=== PATIENT | male | born 1950 | race Caucasian/White ===

== ENCOUNTER 2018-08-21 14:56 | Inpatient (IN) | payer MEDICARE ==
[~2018-08-21] VITALS: Ht 171.4 cm; Wt 62.6 kg
[2018-08-21] MEDS ORDERED: INSULIN REGULAR, HUMAN 300 UNIT/3 ML VIAL SQ ONE (15:15)
[2018-08-21] MEDS ORDERED: INSULIN REGULAR, HUMAN 300 UNIT/3 ML VIAL ONE (15:17)
[2018-08-21] MEDS ORDERED: BISA10SU8 RC (15:23)
[2018-08-21] MEDS ORDERED: POLY255P19 PO (15:23)
[2018-08-21] MEDS ORDERED: METO-295 PO (15:23)
[2018-08-21] MEDS ORDERED: AMLO10TA4 PO (15:23)
[2018-08-21] MEDS ORDERED: PANT40TA4 PO (15:23)
[2018-08-21] MEDS ORDERED: NA P133E8 RC (15:23)
[2018-08-21] MEDS ORDERED: LIDOCAINE PATCH (15:23)
[2018-08-21] MEDS ORDERED: ATOR10TA PO (15:23)
[2018-08-21] MEDS ORDERED: INSU3INS6 SQ (15:23)
[2018-08-21] MEDS ORDERED: ONDA4TAB10 PO (15:23)
[2018-08-21] MEDS ORDERED: NOVOLOG SQ (15:23)
[2018-08-21] MEDS ORDERED: ACET-2154 PO (15:23)
[2018-08-21] MEDS ORDERED: MAGN400O6 PO (15:23)
[2018-08-21] MEDS ORDERED: MIRT15TA7 PO (15:23)
[2018-08-21] MEDS ORDERED: TAMS-3 PO (15:23)
[2018-08-21] MEDS ORDERED: BLOOD SUGAR CHECK (15:23)
--- NOTE | 2018-08-21 16:00 | NUR ---
RECEIVED A 67 Y/O MALE PT , CAME VIA AMBULANCE FROM [facility], C/O HIGH BLOOD SUGAR, PT UPON ARRIVAL BS CHECKED 457 RECEIVED 10 UNITS HR SC. BLOOD WORK DONE IV INSERTED, PT HOOKED TO NS IV. BS RECHECKED STILL HIGH , AWARE, ORDERED TO ADMIT PT , TO BE UNDER THE CARE OF DR PIERO TAVARES.
[2018-08-21] MEDS ORDERED: IV NORMAL SALINE 1000 ML BAG IV ONE (16:30)
[2018-08-21 16:52] LABS: *BILIRUBIN,URIN NEGATIVE (NEGATIVE); *CLARITY,URINE CLEAR (CLEAR); *COLOR,URINE YELLOW (YELLOW); *KETONES,URINE NEGATIVE (NEGATIVE); *UROBILINOGEN,URINE 0.2 E.U./dl (NORMAL); LEUKOCYTE ESTERASE ,URINE NEGATIVE (NEGATIVE); NITRITE, URINE NEGATIVE (NEGATIVE); UGLUCOSE 2+ (NEGATIVE)
[2018-08-21 16:56] LABS: *BLOOD, URINE TRACE (NEGATIVE)
[2018-08-21 16:57] LABS: MUCUS,URINE FEW /LPF (0-FEW); RBC,URINE NONE SEEN /HPF (0-3); WBC,URINE NONE SEEN /HPF (0-3)
[2018-08-21 17:04] LABS: POTASSIUM 4.9 mmol/L (3.5-5.1)
[2018-08-21 17:05] LABS: BASOPHILS # (AUTO) 0.1 K/uL (0.0-8.0); BASOPHILS % (AUTO) 0.7 % (0.0-2.0); EOSINOPHILS # (AUTO) 0.2 K/uL (0.0-0.7); EOSINOPHILS % (AUTO) 2.7 % (0.0-7.0); HEMATOCRIT 31.5 % (36.7-47.1); HEMOGLOBIN 10.5 g/dL (12.5-16.3); LYMPHOCYTES # (AUTO) 1.4 K/uL (20.0-40.0); LYMPHOCYTES % (AUTO) 16.7 % (20.5-51.5); MEAN CORPUSCULAR HEMOGLOBIN 31.4 uug (23.8-33.4); MEAN CORPUSCULAR HGB CONC 33 g/dL (32.5-36.3); MEAN CORPUSCULAR VOLUME 94.1 fL (73.0-96.2); MONOCYTES # (AUTO) 1.1 K/uL (2.0-10.0); NEUTROPHILS # (AUTO) 5.6 K/uL (1.8-8.9); NEUTROPHILS % (AUTO) 66.9 % (38.5-71.5); PLATELET COUNT (AUTO) 163 K/uL (152-348); RED BLOOD CELL COUNT(AUTO) 3.35 MIL/uL (4.06-5.63); WHITE BLOOD COUNT (AUTO) 8.3 K/uL (3.6-10.2)
[2018-08-21 17:09] LABS: BILIRUBIN,DIRECT 0.2 mg/dL (0.0-0.2); BILIRUBIN,TOTAL 0.6 mg/dL (0.2-1.0); TOTAL PROTEIN, SERUM 7.8 g/dL (6.4-8.2)
--- NOTE | 2018-08-21 17:32 | NUR ---
FULL REPORT GIVEN TO SUJEY, PATIENT TRANSFERRED TO 3RD FLOOR TELE UNIT IN WHEEL CHAIR.
[2018-08-21 17:44] VITALS: BP 151/64
--- NOTE | 2018-08-21 17:45 | NUR ---
Received this 67 yo male from ER per wheelchair with the chief complaint of elevated blood sugar, diagnosis of Hyperglycemia, uncontrolled diabetes. Transferred to bed comfortably. Routine admission care rendered. Vital signa taken and recorded. Placed on tele SR. Awake, alert, oriented x 4, able to move all extremities on purpose. Saline lock LFA. Blood glucose checked 267. Dr. Nunez informed of admission.
[2018-08-21] MEDS ORDERED: ACETAMINOPHEN 325 MG TABLET PO PRN (18:30)
[2018-08-21] MEDS ORDERED: MORPHINE SULFATE 2 MG/1 ML DISP.SYRIN IV PRN (18:45)
[2018-08-21] MEDS ORDERED: ONDANSETRON 4 MG/2 ML VIAL IV PRN (18:45)
--- NOTE | 2018-08-21 19:30 | NUR ---
Received patient laying in bed. No acute distress noted. A/O x 4. Denies pain or SOB. In room air. IV on the left hand, patent and intact. Reinforced with tegaderm. Skin appears intact. Safety initiated. Call light within reach. Bed alarm on. Will closely monitor.
[2018-08-21] MEDS: ATORVASTATIN 10 MG TABLET PO SCH (20:46)
[2018-08-21] MEDS: MIRTAZAPINE 15 MG TABLET PO SCH (20:46)
[2018-08-21] MEDS: TAMSULOSIN HCL 0.4 MG CAP.SR.24H PO SCH (20:46)
[2018-08-21 20:49] VITALS: BP 113/47
[2018-08-21] MEDS: BLOOD SUGAR DIAGNOSTIC 1 EACH STRIP VI SCH (20:51)
[2018-08-21] MEDS: INSULIN GLARGINE,HUM 300 UNITS/3 ML CARTRIDGE SQ SCH (20:52)
[2018-08-21] MEDS: INSULIN REGULAR, HUMAN 300 UNIT/3 ML VIAL SQ PRN (20:53)
[2018-08-21] MEDS: IV 1/2NS 1000 ML 1,000 ML IV PRN (21:01)
[2018-08-22 04:50] VITALS: BP 129/64
--- NOTE | 2018-08-22 05:45 | NUR ---
Patient slept t/o shift. No acute distress noted. Patient denies pain or SOB. Remains in room air. TELE SBrady at 52. IVF infusing on the left hand. Good Urine output. Vital signs stable. All meds given as ordered. All needs met. All safety and comfort measures maintained t/o shift.
[2018-08-22] MEDS: PANTOPRAZOLE SODIUM 40 MG TABLET.DR PO SCH (06:23)
[2018-08-22] MEDS: BLOOD SUGAR DIAGNOSTIC 1 EACH STRIP VI SCH ×4 (06:30→20:40)
[2018-08-22 06:40] LABS: BASOPHILS % (AUTO) 0.8 % (0.0-2.0); EOSINOPHILS # (AUTO) 0.4 K/uL (0.0-0.7); EOSINOPHILS % (AUTO) 5.6 % (0.0-7.0); HEMATOCRIT 29.6 % (36.7-47.1); HEMOGLOBIN 9.9 g/dL (12.5-16.3); LYMPHOCYTES # (AUTO) 1.4 K/uL (20.0-40.0); LYMPHOCYTES % (AUTO) 22.4 % (20.5-51.5); MEAN CORPUSCULAR HEMOGLOBIN 31.3 uug (23.8-33.4); MEAN CORPUSCULAR HGB CONC 34 g/dL (32.5-36.3); MEAN CORPUSCULAR VOLUME 93.4 fL (73.0-96.2); MONOCYTES # (AUTO) 0.9 K/uL (2.0-10.0); MONOCYTES % (AUTO) 14.3 % (0.0-11.0); NEUTROPHILS # (AUTO) 3.6 K/uL (1.8-8.9); NEUTROPHILS % (AUTO) 56.9 % (38.5-71.5); PLATELET COUNT (AUTO) 157 K/uL (152-348); RED BLOOD CELL COUNT(AUTO) 3.17 MIL/uL (4.06-5.63); WHITE BLOOD COUNT (AUTO) 6.3 K/uL (3.6-10.2)
[2018-08-22 07:08] LABS: BILIRUBIN,TOTAL 0.5 mg/dL (0.2-1.0); CREATININE 1.7 mg/dL (0.6-1.3); MAGNESIUM 1.8 mg/dL (1.8-2.4); PHOSPHOROUS 5.1 mg/dL (2.5-4.9); POTASSIUM 4.3 mmol/L (3.5-5.1); TOTAL PROTEIN, SERUM 6.6 g/dL (6.4-8.2)
[2018-08-22 07:10] LABS: THYROID STIMULATING HORMONE 2.388 mIU/mL (0.358-3.740)
[2018-08-22] MEDS: AMLODIPINE 10 MG TABLET PO SCH (08:08)
[2018-08-22] MEDS: METOCLOPRAMIDE HCL 10 MG TABLET PO SCH ×3 (08:08→17:19)
[2018-08-22] MEDS: INSULIN GLARGINE,HUM 300 UNITS/3 ML CARTRIDGE SQ SCH ×2 (08:10→20:51)
[2018-08-22] MEDS: INSULIN REGULAR, HUMAN 300 UNIT/3 ML VIAL SQ PRN ×4 (08:12→20:50)
[2018-08-22] MEDS ORDERED: BISACODYL 10 MG SUPP.RECT RC PRN (09:00)
[2018-08-22] MEDS ORDERED: POLYETHYLENE GLYCOL 3350 238 GM POWDER PO SCH (09:00)
[2018-08-22] MEDS: IV 1/2NS 1000 ML 1,000 ML IV PRN (10:16)
[2018-08-22 11:34] VITALS: BP 141/68
[2018-08-22 16:00] VITALS: BP 121/58
--- NOTE | 2018-08-22 16:22 | NUR ---
Patient is AO4, No acute distress noted. Patient denies pain or SOB. Remains in room air. TELE SR and SBrady 58. IVF infusing 1/2 NS at 70ml/hr. Good Urine output. Vital signs stable. All needs met. All safety and comfort measures maintained t/o shift.
--- NOTE | 2018-08-22 19:30 | NUR ---
PATIENT RECEIVED LYING IN BED. A/OX4. NO SIGNS OF ACUTE DISTRESS. COMFORT MEASURES PROVIDED. BED IN LOWEST POSITION. SIDE RAILS UP X2.
[2018-08-22 20:40] VITALS: BP 130/57
[2018-08-22] MEDS: TAMSULOSIN HCL 0.4 MG CAP.SR.24H PO SCH (20:41)
[2018-08-22] MEDS: ATORVASTATIN 10 MG TABLET PO SCH (20:41)
[2018-08-22] MEDS: MIRTAZAPINE 15 MG TABLET PO SCH (20:41)
[2018-08-23 00:42] VITALS: BP 130/52
[2018-08-23] MEDS: IV 1/2NS 1000 ML 1,000 ML IV PRN (01:29)
[2018-08-23 04:00] VITALS: BP 125/52
[2018-08-23] MEDS: PANTOPRAZOLE SODIUM 40 MG TABLET.DR PO SCH (06:31)
[2018-08-23] MEDS: BLOOD SUGAR DIAGNOSTIC 1 EACH STRIP VI SCH ×3 (06:35→11:50)
[2018-08-23] MEDS: DEXTROSE 50% 50 ML DISP.SYRIN IV PRN ×3 (07:00→07:23)
--- NOTE | 2018-08-23 07:27 | NUR ---
PATIENT INTERMITTENTLY SLEEPING. A/O X4. NO SIGNS OF ACUTE DISTRESS. COMFORT MEASURES PROVIDED. SIDE RAILS UP X2. BED IN LOWEST POSITION. ALARM ON. PATIENT BLOOD SUGAR AT 61. PROTOCAL INITIATED PATIENT GIVEN SANDWHICH AND ORANGE JUICE. RECHECKED BLOOD SUGAR IN 15 MINUTES AND BS WAS 63. PATIENT REFUSED MEAL AND DEXTROSE 50ML WAS ADMINISTERED. RECHECKED BS IN 15 MINUTES BS WAS 215. ENDORSED TO AM SHIFT TO CONTACT
[2018-08-23] MEDS: METOCLOPRAMIDE HCL 10 MG TABLET PO SCH ×2 (08:18→12:24)
[2018-08-23] MEDS: AMLODIPINE 10 MG TABLET PO SCH (08:19)
[2018-08-23] MEDS ORDERED: INSULIN GLARGINE,HUM 300 UNITS/3 ML CARTRIDGE SQ SCH ×2 (09:00→21:00)
[2018-08-23] MEDS: INSULIN REGULAR, HUMAN 300 UNIT/3 ML VIAL SQ PRN ×2 (09:32→12:21)
[2018-08-23 09:40] LABS: HEMATOCRIT 30.3 % (36.7-47.1); HEMOGLOBIN 10.2 g/dL (12.5-16.3); MEAN CORPUSCULAR HEMOGLOBIN 31.3 uug (23.8-33.4); MEAN CORPUSCULAR HGB CONC 34 g/dL (32.5-36.3); MEAN CORPUSCULAR VOLUME 92.9 fL (73.0-96.2); NEUTROPHILS % (AUTO) 61.6 % (38.5-71.5); PLATELET COUNT (AUTO) 158 K/uL (152-348); RED BLOOD CELL COUNT(AUTO) 3.26 MIL/uL (4.06-5.63); WHITE BLOOD COUNT (AUTO) 6.5 K/uL (3.6-10.2)
[2018-08-23 09:41] LABS: BASOPHILS # (AUTO) 0.1 K/uL (0.0-8.0); EOSINOPHILS # (AUTO) 0.3 K/uL (0.0-0.7); EOSINOPHILS % (AUTO) 4.5 % (0.0-7.0); LYMPHOCYTES # (AUTO) 1.3 K/uL (20.0-40.0); LYMPHOCYTES % (AUTO) 20.6 % (20.5-51.5); MONOCYTES # (AUTO) 0.8 K/uL (2.0-10.0); MONOCYTES % (AUTO) 12.3 % (0.0-11.0)
[2018-08-23 09:54] LABS: BILIRUBIN,TOTAL 0.5 mg/dL (0.2-1.0); CREATININE 1.8 mg/dL (0.6-1.3); MAGNESIUM 1.7 mg/dL (1.8-2.4); PHOSPHOROUS 4.3 mg/dL (2.5-4.9); POTASSIUM 4.5 mmol/L (3.5-5.1); TOTAL PROTEIN, SERUM 6.7 g/dL (6.4-8.2)
[2018-08-23 11:56] VITALS: BP 136/55
[2018-08-23] MEDS ORDERED: Insulin Glargine,Hum SQ ×2 (13:56)
[2018-08-23] MEDS ORDERED: TAMS-3 PO (13:56)
[2018-08-23] MEDS ORDERED: INSU3INS6 SQ ×2 (14:02)
--- NOTE | 2018-08-23 16:00 | NUR ---
PATIENT IS AO4, NO DISTRESS THIS SHIFT . NO SOB OR PAIN. BS IN THE MORNING WAS LOW AND MD IS AWARE OF IT (TEXTED IN THE AM) DISCHARGE INSTRUCTIONS PROVIDED WITH PRESCRIPTION TO THE PATIENT AND HARD COPY OF D/C PAPERS SIGNED AND GIVEN TO THE PATIENT PATIENT WENT DOWN STAIR BY WHEELCHAIR AND BROTHER
[2018-08-24] MEDS ORDERED: INSULIN GLARGINE,HUM 300 UNITS/3 ML CARTRIDGE SQ SCH (09:00)
== END 2018-08-23 15:55 | disposition home health service (06) | DRG 637 ==
LOC: ER 14:58 → TELE3 16:51
PROVIDERS: ADMIT Internal Medicine; ATTEND Internal Medicine
DX: E11.65 Type 2 diabetes mellitus with hyperglycemia (principal); E11.10 Type 2 diabetes mellitus with ketoacidosis without coma; N17.0 Acute kidney failure with tubular necrosis; G93.41 Metabolic encephalopathy; D68.59 Other primary thrombophilia; Z79.4 Long term (current) use of insulin; E11.22 Type 2 diabetes mellitus with diabetic chronic kidney disease; I12.9 Hypertensive chronic kidney disease with stage 1 through stage 4 chronic kidney disease, or unspecified chronic kidney disease; Z66 Do not resuscitate; N18.3 Chronic kidney disease, stage 3 (moderate); N40.0 Benign prostatic hyperplasia without lower urinary tract symptoms; Z79.899 Other long term (current) drug therapy; K21.9 Gastro-esophageal reflux disease without esophagitis; Z91.81 History of falling; E78.5 Hyperlipidemia, unspecified; Z87.820 Personal history of traumatic brain injury
CPT/HCPCS: 36415; 70030-TC; 71045; 83550; 83690; 83735; 84100; 84443; 85025; 85730; 87086; 93005; 97116; 97530; A4663; G0378; J1815; J3490; J8597

== ENCOUNTER 2018-11-12 12:58 | Inpatient (IN) | payer MEDICARE ==
[~2018-11-12] VITALS: Ht 172.7 cm; Wt 65.8 kg
[~2018-11-12 12:58] MED LIST: ACET-2154 PO; AMLO10TA4 PO; ATOR10TA PO; BISA10SU95 RC; BLOOD SUGAR CHECK; INSU3INS6 SQ; LIDOCAINE PATCH; METO-295 PO; MIRT15TA7 PO; NA P133E8 RC; NOVOLOG SQ; PANT40TA4 PO; POLY255P19 PO; TAMS-3 PO
[2018-11-12] MEDS ORDERED: GLUC1KIT SQ (13:27)
[2018-11-12] MEDS ORDERED: INSU200I SQ ×3 (13:27)
[2018-11-12] MEDS ORDERED: INSU3INS6 SQ (13:27)
[2018-11-12 13:34] LABS: BASOPHILS # (AUTO) 0.1 K/uL (0.0-8.0); BASOPHILS % (AUTO) 1.2 % (0.0-2.0); EOSINOPHILS # (AUTO) 0.4 K/uL (0.0-0.7); EOSINOPHILS % (AUTO) 4.7 % (0.0-7.0); HEMATOCRIT 35.5 % (36.7-47.1); HEMOGLOBIN 11.6 g/dL (12.5-16.3); LYMPHOCYTES # (AUTO) 1.4 K/uL (20.0-40.0); LYMPHOCYTES % (AUTO) 15.9 % (20.5-51.5); MEAN CORPUSCULAR HEMOGLOBIN 29.9 uug (23.8-33.4); MEAN CORPUSCULAR HGB CONC 33 g/dL (32.5-36.3); MEAN CORPUSCULAR VOLUME 91.4 fL (73.0-96.2); MONOCYTES # (AUTO) 0.7 K/uL (2.0-10.0); MONOCYTES % (AUTO) 8.3 % (0.0-11.0); NEUTROPHILS % (AUTO) 69.9 % (38.5-71.5); PLATELET COUNT (AUTO) 197 K/uL (152-348); RED BLOOD CELL COUNT(AUTO) 3.88 MIL/uL (4.06-5.63); WHITE BLOOD COUNT (AUTO) 8.6 K/uL (3.6-10.2)
[2018-11-12 13:43] LABS: BILIRUBIN,DIRECT 0.2 mg/dL (0.0-0.2); BILIRUBIN,TOTAL 0.7 mg/dL (0.2-1.0); CREATININE 2.3 mg/dL (0.6-1.3); POTASSIUM 4.8 mmol/L (3.5-5.1); TOTAL PROTEIN, SERUM 7.9 g/dL (6.4-8.2)
[2018-11-12] MEDS ORDERED: INSULIN REGULAR, HUMAN 300 UNIT/3 ML VIAL SQ ONE (14:00)
[2018-11-12] MEDS ORDERED: IV NORMAL SALINE 500 ML BAG IV ONE (14:00)
[2018-11-12 14:20] LABS: *BILIRUBIN,URIN NEGATIVE (NEGATIVE); *CLARITY,URINE CLEAR (CLEAR); *COLOR,URINE YELLOW (YELLOW); *KETONES,URINE NEGATIVE (NEGATIVE); *UROBILINOGEN,URINE 0.2 E.U./dl (NORMAL); LEUKOCYTE ESTERASE ,URINE NEGATIVE (NEGATIVE); NITRITE, URINE NEGATIVE (NEGATIVE); PH,URINE 5.5 (5.0-8.0)
[2018-11-12 14:22] LABS: *BLOOD, URINE TRACE (NEGATIVE); UGLUCOSE 2+ (NEGATIVE)
[2018-11-12 14:25] LABS: WBC,URINE 0-3 /HPF (0-3)
[2018-11-12 14:26] LABS: BACTERIA,URINE NONE SEEN /HPF (NONE SEEN); MUCUS,URINE FEW /LPF (0-FEW); SQUAMOUS EPITHELIAL CELL,UR FEW /HPF (NONE SEEN)
[2018-11-12] MEDS ORDERED: INSULIN REGULAR, HUMAN 300 UNIT/3 ML VIAL ONE (14:27)
[2018-11-12] MEDS ORDERED: DEXTROSE 50% 50 ML DISP.SYRIN IV PRN (15:45)
[2018-11-12] MEDS ORDERED: ONDANSETRON 4 MG/2 ML VIAL IV PRN (15:45)
[2018-11-12] MEDS ORDERED: TEMAZEPAM 15 MG CAPSULE PO PRN (15:45)
[2018-11-12] MEDS ORDERED: BISACODYL 10 MG SUPP.RECT RC SCH (15:45)
[2018-11-12] MEDS ORDERED: HYDROCODONE/APAP 10-325 MG TABLET PO PRN (15:45)
[2018-11-12] MEDS ORDERED: FLEET ENEMA 133 ML BOTTLE RC SCH (15:45)
[2018-11-12] MEDS ORDERED: Z GUARD REMEDY PASTE 57 GM TUBE TOP PRN (15:45)
[2018-11-12] MEDS ORDERED: ACETAMINOPHEN 325 MG TABLET PO PRN (15:45)
[2018-11-12] MEDS ORDERED: HYDROCODONE/APAP 5-325MG TABLET PO PRN (15:45)
[2018-11-12] MEDS ORDERED: METOCLOPRAMIDE HCL 5 MG TABLET PO PRN (16:30)
[2018-11-12] MEDS: BLOOD SUGAR DIAGNOSTIC 1 EACH STRIP VI SCH ×2 (16:30→21:01)
[2018-11-12] MEDS ORDERED: METOCLOPRAMIDE HCL 10 MG TABLET PO SCH (17:00)
[2018-11-12 17:37] VITALS: BP 153/58
[2018-11-12] MEDS: PANTOPRAZOLE SODIUM 40 MG TABLET.DR PO SCH (17:53)
[2018-11-12] MEDS: ATORVASTATIN 10 MG TABLET PO SCH (17:53)
[2018-11-12] MEDS: MIRTAZAPINE 15 MG TABLET PO SCH (17:57)
[2018-11-12] MEDS: INSULIN LISPRO 300 UNIT/3 ML VIAL SQ SCH (17:59)
[2018-11-12] MEDS: IV NS 1000 ML 1,000 ML IV PRN (18:04)
[2018-11-12 19:42] VITALS: BP 158/66
[2018-11-12] MEDS: TAMSULOSIN HCL 0.4 MG CAP.SR.24H PO SCH (21:03)
[2018-11-12] MEDS: INSULIN GLARGINE,HUM 300 UNITS/3 ML CARTRIDGE SQ SCH (21:06)
[2018-11-12] MEDS: INSULIN REGULAR, HUMAN 300 UNIT/3 ML VIAL SQ PRN (21:07)
[2018-11-13 01:23] LABS: *BILIRUBIN,URIN NEGATIVE (NEGATIVE); *BLOOD, URINE NEGATIVE (NEGATIVE); *CLARITY,URINE CLEAR (CLEAR); *COLOR,URINE YELLOW (YELLOW); *KETONES,URINE NEGATIVE (NEGATIVE); *UROBILINOGEN,URINE 0.2 E.U./dl (NORMAL); LEUKOCYTE ESTERASE ,URINE NEGATIVE (NEGATIVE); NITRITE, URINE NEGATIVE (NEGATIVE); UGLUCOSE TRACE (NEGATIVE)
[2018-11-13 01:33] LABS: *CREATININE,URINE 27.4 mg/dL (30-125); *URINE TOTAL PROTEIN RANDOM 63.8 mg/dL (<150/24HR)
[2018-11-13 01:36] LABS: BACTERIA,URINE NONE SEEN /HPF (NONE SEEN); RBC,URINE NONE SEEN /HPF (0-3); SQUAMOUS EPITHELIAL CELL,UR FEW /HPF (NONE SEEN); WBC,URINE 0-3 /HPF (0-3)
[2018-11-13] MEDS: IV NS 1000 ML 1,000 ML IV PRN ×2 (04:08→14:57)
[2018-11-13 04:28] VITALS: BP 129/55
[2018-11-13] MEDS: BLOOD SUGAR DIAGNOSTIC 1 EACH STRIP VI SCH ×4 (06:28→20:35)
[2018-11-13 07:02] LABS: BASOPHILS # (AUTO) 0.1 K/uL (0.0-8.0); EOSINOPHILS # (AUTO) 0.5 K/uL (0.0-0.7); EOSINOPHILS % (AUTO) 8.2 % (0.0-7.0); HEMATOCRIT 32.2 % (36.7-47.1); HEMOGLOBIN 10.9 g/dL (12.5-16.3); LYMPHOCYTES # (AUTO) 1.5 K/uL (20.0-40.0); LYMPHOCYTES % (AUTO) 25.2 % (20.5-51.5); MEAN CORPUSCULAR HEMOGLOBIN 30.6 uug (23.8-33.4); MEAN CORPUSCULAR HGB CONC 34 g/dL (32.5-36.3); MEAN CORPUSCULAR VOLUME 90.6 fL (73.0-96.2); MONOCYTES # (AUTO) 0.7 K/uL (2.0-10.0); MONOCYTES % (AUTO) 12.6 % (0.0-11.0); NEUTROPHILS # (AUTO) 3.1 K/uL (1.8-8.9); PLATELET COUNT (AUTO) 179 K/uL (152-348); RED BLOOD CELL COUNT(AUTO) 3.56 MIL/uL (4.06-5.63); WHITE BLOOD COUNT (AUTO) 5.8 K/uL (3.6-10.2)
[2018-11-13 07:16] LABS: CREATININE 1.7 mg/dL (0.6-1.3); MAGNESIUM 1.8 mg/dL (1.8-2.4); PHOSPHOROUS 4.5 mg/dL (2.5-4.9); POTASSIUM 4.1 mmol/L (3.5-5.1)
[2018-11-13] MEDS: ATORVASTATIN 10 MG TABLET PO SCH (08:55)
[2018-11-13] MEDS: PANTOPRAZOLE SODIUM 40 MG TABLET.DR PO SCH (08:55)
[2018-11-13] MEDS: AMLODIPINE 10 MG TABLET PO SCH (08:56)
[2018-11-13] MEDS: INSULIN LISPRO 300 UNIT/3 ML VIAL SQ SCH ×2 (09:00→18:42)
[2018-11-13 11:18] VITALS: BP 129/73
[2018-11-13] MEDS: INSULIN REGULAR, HUMAN 300 UNIT/3 ML VIAL SQ PRN (12:38)
[2018-11-13 15:13] VITALS: BP 147/68
[2018-11-13] MEDS: MIRTAZAPINE 15 MG TABLET PO SCH (18:41)
[2018-11-13 20:32] VITALS: BP 139/62
[2018-11-13] MEDS: TAMSULOSIN HCL 0.4 MG CAP.SR.24H PO SCH (20:37)
[2018-11-13] MEDS: INSULIN GLARGINE,HUM 300 UNITS/3 ML CARTRIDGE SQ SCH (20:38)
[2018-11-14] MEDS: IV NS 1000 ML 1,000 ML IV PRN (01:09)
[2018-11-14 04:41] VITALS: BP 125/62
[2018-11-14] MEDS: BLOOD SUGAR DIAGNOSTIC 1 EACH STRIP VI SCH ×4 (05:48→21:07)
[2018-11-14 06:54] LABS: BASOPHILS # (AUTO) 0.1 K/uL (0.0-8.0); BASOPHILS % (AUTO) 0.8 % (0.0-2.0); EOSINOPHILS # (AUTO) 0.3 K/uL (0.0-0.7); EOSINOPHILS % (AUTO) 5.1 % (0.0-7.0); HEMATOCRIT 32.2 % (36.7-47.1); HEMOGLOBIN 10.8 g/dL (12.5-16.3); LYMPHOCYTES # (AUTO) 1.1 K/uL (20.0-40.0); LYMPHOCYTES % (AUTO) 16.8 % (20.5-51.5); MEAN CORPUSCULAR HEMOGLOBIN 30.4 uug (23.8-33.4); MEAN CORPUSCULAR HGB CONC 34 g/dL (32.5-36.3); MEAN CORPUSCULAR VOLUME 90.9 fL (73.0-96.2); MONOCYTES # (AUTO) 0.7 K/uL (2.0-10.0); MONOCYTES % (AUTO) 9.9 % (0.0-11.0); NEUTROPHILS # (AUTO) 4.5 K/uL (1.8-8.9); NEUTROPHILS % (AUTO) 67.4 % (38.5-71.5); PLATELET COUNT (AUTO) 171 K/uL (152-348); RED BLOOD CELL COUNT(AUTO) 3.55 MIL/uL (4.06-5.63); WHITE BLOOD COUNT (AUTO) 6.8 K/uL (3.6-10.2)
[2018-11-14 07:11] LABS: BILIRUBIN,TOTAL 0.5 mg/dL (0.2-1.0); CREATININE 1.8 mg/dL (0.6-1.3); MAGNESIUM 1.8 mg/dL (1.8-2.4); PHOSPHOROUS 4.2 mg/dL (2.5-4.9); POTASSIUM 4.5 mmol/L (3.5-5.1); TOTAL PROTEIN, SERUM 7.1 g/dL (6.4-8.2)
[2018-11-14] MEDS: PANTOPRAZOLE SODIUM 40 MG TABLET.DR PO SCH (09:35)
[2018-11-14] MEDS: AMLODIPINE 10 MG TABLET PO SCH (09:35)
[2018-11-14] MEDS: ATORVASTATIN 10 MG TABLET PO SCH (09:35)
[2018-11-14] MEDS: INSULIN LISPRO 300 UNIT/3 ML VIAL SQ SCH ×2 (09:40→17:52)
[2018-11-14] MEDS: INSULIN REGULAR, HUMAN 300 UNIT/3 ML VIAL SQ PRN ×3 (09:48→21:10)
[2018-11-14 11:24] VITALS: BP 132/84
[2018-11-14 15:09] VITALS: BP 144/65
[2018-11-14] MEDS: MIRTAZAPINE 15 MG TABLET PO SCH (17:50)
[2018-11-14 20:02] VITALS: BP 128/53
[2018-11-14] MEDS: TAMSULOSIN HCL 0.4 MG CAP.SR.24H PO SCH (21:02)
[2018-11-14] MEDS: INSULIN GLARGINE,HUM 300 UNITS/3 ML CARTRIDGE SQ SCH (21:09)
[2018-11-15 05:52] LABS: BASOPHILS # (AUTO) 0.1 K/uL (0.0-8.0); BASOPHILS % (AUTO) 1.2 % (0.0-2.0); EOSINOPHILS # (AUTO) 0.4 K/uL (0.0-0.7); EOSINOPHILS % (AUTO) 5.5 % (0.0-7.0); HEMATOCRIT 30.6 % (36.7-47.1); HEMOGLOBIN 10.5 g/dL (12.5-16.3); LYMPHOCYTES # (AUTO) 1.5 K/uL (20.0-40.0); LYMPHOCYTES % (AUTO) 23.8 % (20.5-51.5); MEAN CORPUSCULAR HEMOGLOBIN 30.9 uug (23.8-33.4); MEAN CORPUSCULAR HGB CONC 34 g/dL (32.5-36.3); MEAN CORPUSCULAR VOLUME 90.4 fL (73.0-96.2); MONOCYTES # (AUTO) 0.7 K/uL (2.0-10.0); MONOCYTES % (AUTO) 10.4 % (0.0-11.0); NEUTROPHILS # (AUTO) 3.8 K/uL (1.8-8.9); NEUTROPHILS % (AUTO) 59.1 % (38.5-71.5); PLATELET COUNT (AUTO) 170 K/uL (152-348); RED BLOOD CELL COUNT(AUTO) 3.39 MIL/uL (4.06-5.63); WHITE BLOOD COUNT (AUTO) 6.4 K/uL (3.6-10.2)
[2018-11-15] MEDS: BLOOD SUGAR DIAGNOSTIC 1 EACH STRIP VI SCH ×2 (05:58→11:33)
[2018-11-15 06:00] LABS: BILIRUBIN,TOTAL 0.5 mg/dL (0.2-1.0); CREATININE 1.9 mg/dL (0.6-1.3); MAGNESIUM 1.7 mg/dL (1.8-2.4); PHOSPHOROUS 4.1 mg/dL (2.5-4.9); POTASSIUM 4.1 mmol/L (3.5-5.1); TOTAL PROTEIN, SERUM 6.5 g/dL (6.4-8.2)
[2018-11-15 06:30] VITALS: BP 125/65
[2018-11-15] MEDS: AMLODIPINE 10 MG TABLET PO SCH (08:21)
[2018-11-15] MEDS: ATORVASTATIN 10 MG TABLET PO SCH (08:21)
[2018-11-15] MEDS: PANTOPRAZOLE SODIUM 40 MG TABLET.DR PO SCH (08:21)
[2018-11-15] MEDS: INSULIN REGULAR, HUMAN 300 UNIT/3 ML VIAL SQ PRN ×2 (08:25→12:06)
[2018-11-15] MEDS: INSULIN LISPRO 300 UNIT/3 ML VIAL SQ SCH (09:21)
[2018-11-15 11:50] VITALS: BP 136/53
[2018-11-15] MEDS ORDERED: MAGNESIUM OXIDE 400 MG TABLET PO ONE (14:00)
[2018-11-16 06:09] LABS: A/G RATIO 1.5 (0.7-1.7); ALBUMIN 3.8 g/dL (2.9-4.4); ALPHA-1-GLOBULIN 0.1 g/dL (0.0-0.4); ALPHA-2-GLOBULIN 0.4 g/dL (0.4-1.0); BETA GLOBULIN 0.7 g/dL (0.7-1.3); GAMMA GLOBULIN 1.3 g/dL (0.4-1.8); GLOBULIN, TOTAL 2.5 g/dL (2.2-3.9); M-SPIKE Not Observed g/dL (Not Observed)
== END 2018-11-15 13:20 | DRG 637 ==
LOC: ER 12:58 → MEDSURG3 15:36
PROVIDERS: ADMIT Nurse Practitioner Acute Care; ATTEND Nurse Practitioner Acute Care
DX: E11.65 Type 2 diabetes mellitus with hyperglycemia (principal); N17.0 Acute kidney failure with tubular necrosis; G93.41 Metabolic encephalopathy; E87.1 Hypo-osmolality and hyponatremia; E87.2 Acidosis; E11.22 Type 2 diabetes mellitus with diabetic chronic kidney disease; I12.9 Hypertensive chronic kidney disease with stage 1 through stage 4 chronic kidney disease, or unspecified chronic kidney disease; N18.9 Chronic kidney disease, unspecified; Z79.4 Long term (current) use of insulin; N40.0 Benign prostatic hyperplasia without lower urinary tract symptoms; E78.5 Hyperlipidemia, unspecified; E86.1 Hypovolemia; H47.011 Ischemic optic neuropathy, right eye; E11.39 Type 2 diabetes mellitus with other diabetic ophthalmic complication; D63.8 Anemia in other chronic diseases classified elsewhere; M21.372 Foot drop, left foot; F32.9 Major depressive disorder, single episode, unspecified; K21.9 Gastro-esophageal reflux disease without esophagitis; Z79.899 Other long term (current) drug therapy
CPT/HCPCS: 36415; 70030-TC; 71045; 83605; 83735; 83970; 84100; 84155; 84156; 84165; 84300; 85025; 93005; 97116; 97530; A4663; G0378; J1815; J7030

== ENCOUNTER 2019-01-17 00:37 | Emergency (ER) | payer MEDICARE ==
[~2019-01-17] VITALS: Ht 172.7 cm; Wt 68.0 kg
[~2019-01-17 00:37] MED LIST changes: +GLUC1KIT SQ; -INSU3INS6 SQ
--- NOTE | 2019-01-17 00:59 | NUR ---
pt. admitted to [facility] ambulance from [facility] c/o fall. c/o r elbow pain. dr mclaughlin came & evaluated pt.
[2019-01-17] MEDS ORDERED: ACET600C5 PO (01:09)
[2019-01-17] MEDS ORDERED: INSU3INS6 SQ (01:10)
[2019-01-17] MEDS ORDERED: INSU100I28 SQ (01:10)
[2019-01-17] MEDS ORDERED: HYDR453.3 TP (01:10)
[2019-01-17 01:57] VITALS: BP 134/76
--- NOTE | 2019-01-17 02:01 | NUR ---
Patient discharged to [facility] in stable conditon. Written and verbal after care instructions given to ambulance transport. pt transfered to [facility] via [facility].
== END 2019-01-17 02:04 | disposition home or self-care (01) ==
LOC: ER 00:40
DX: S50.01XA Contusion of right elbow, initial encounter (principal); K21.9 Gastro-esophageal reflux disease without esophagitis; N18.9 Chronic kidney disease, unspecified; E11.9 Type 2 diabetes mellitus without complications; F32.9 Major depressive disorder, single episode, unspecified; Z79.4 Long term (current) use of insulin; Z79.899 Other long term (current) drug therapy; W07.XXXA Fall from chair, initial encounter; Y93.89 Activity, other specified; Y92.89 Other specified places as the place of occurrence of the external cause; Y99.8 Other external cause status
CPT/HCPCS: 73080; A4663; J7040

== ENCOUNTER 2019-01-17 03:57 | Inpatient (IN) | payer MEDICARE ==
[~2019-01-17] VITALS: Ht 172.7 cm; Wt 69.0 kg
[~2019-01-17 03:57] MED LIST changes: +ACET600C5 PO; +HYDR453.3 TP; +INSU100I28 SQ; +INSU3INS6 SQ
[2019-01-17] MEDS ORDERED: LIDOCAINE HCL 2% 20 ML VIAL TP ONE (04:30)
[2019-01-17] MEDS ORDERED: IV NORMAL SALINE 500 ML BAG IV ONE (04:30)
[2019-01-17 04:46] LABS: BASOPHILS # (AUTO) 0.1 K/uL (0.0-8.0); BASOPHILS % (AUTO) 0.5 % (0.0-2.0); EOSINOPHILS % (AUTO) 0.5 % (0.0-7.0); HEMATOCRIT 32.3 % (36.7-47.1); HEMOGLOBIN 11.2 g/dL (12.5-16.3); LYMPHOCYTES # (AUTO) 0.7 K/uL (20.0-40.0); LYMPHOCYTES % (AUTO) 7.2 % (20.5-51.5); MEAN CORPUSCULAR HGB CONC 35 g/dL (32.5-36.3); MEAN CORPUSCULAR VOLUME 92.6 fL (73.0-96.2); MONOCYTES # (AUTO) 1.1 K/uL (2.0-10.0); MONOCYTES % (AUTO) 11.6 % (0.0-11.0); NEUTROPHILS # (AUTO) 7.9 K/uL (1.8-8.9); NEUTROPHILS % (AUTO) 80.2 % (38.5-71.5); PLATELET COUNT (AUTO) 190 K/uL (152-348); RED BLOOD CELL COUNT(AUTO) 3.49 MIL/uL (4.06-5.63); WHITE BLOOD COUNT (AUTO) 9.9 K/uL (3.6-10.2)
[2019-01-17 04:54] LABS: CREATININE 2.3 mg/dL (0.6-1.3); POTASSIUM 4.5 mmol/L (3.5-5.1)
[2019-01-17 05:00] LABS: BILIRUBIN,DIRECT 0.2 mg/dL (0.0-0.2); BILIRUBIN,TOTAL 0.8 mg/dL (0.2-1.0); TOTAL PROTEIN, SERUM 7.5 g/dL (6.4-8.2)
[2019-01-17 05:23] LABS: *BILIRUBIN,URIN NEGATIVE (NEGATIVE); *BLOOD, URINE 3+ (NEGATIVE); *CLARITY,URINE CLEAR (CLEAR); *COLOR,URINE YELLOW (YELLOW); *KETONES,URINE TRACE (NEGATIVE); *UROBILINOGEN,URINE 0.2 E.U./dl (NORMAL); LEUKOCYTE ESTERASE ,URINE NEGATIVE (NEGATIVE); NITRITE, URINE NEGATIVE (NEGATIVE); UGLUCOSE 1+ (NEGATIVE)
[2019-01-17] MEDS ORDERED: MAGNESIUM HYDROXIDE 30 ML LIQUID UDC PO PRN (05:30)
[2019-01-17] MEDS ORDERED: Z GUARD REMEDY PASTE 57 GM TUBE TOP PRN (05:30)
[2019-01-17] MEDS ORDERED: ONDANSETRON 4 MG/2 ML VIAL IV PRN (05:30)
[2019-01-17 05:32] LABS: BACTERIA,URINE FEW /HPF (NONE SEEN); SQUAMOUS EPITHELIAL CELL,UR FEW /HPF (NONE SEEN); WBC,URINE 0-3 /HPF (0-3)
[2019-01-17] MEDS: IV 1/2NS 1000 ML 1,000 ML IV PRN ×2 (06:33→19:30)
[2019-01-17 10:52] LABS: BASOPHILS # (AUTO) 0.1 K/uL (0.0-8.0); BASOPHILS % (AUTO) 0.7 % (0.0-2.0); EOSINOPHILS % (AUTO) 0.2 % (0.0-7.0); HEMATOCRIT 33.7 % (36.7-47.1); HEMOGLOBIN 11.1 g/dL (12.5-16.3); LYMPHOCYTES # (AUTO) 0.7 K/uL (20.0-40.0); MEAN CORPUSCULAR HEMOGLOBIN 30.6 uug (23.8-33.4); MEAN CORPUSCULAR HGB CONC 33 g/dL (32.5-36.3); MEAN CORPUSCULAR VOLUME 93.1 fL (73.0-96.2); MONOCYTES # (AUTO) 0.9 K/uL (2.0-10.0); MONOCYTES % (AUTO) 10.1 % (0.0-11.0); PLATELET COUNT (AUTO) 176 K/uL (152-348); RED BLOOD CELL COUNT(AUTO) 3.62 MIL/uL (4.06-5.63); WHITE BLOOD COUNT (AUTO) 8.6 K/uL (3.6-10.2)
[2019-01-17 11:05] LABS: THYROID STIMULATING HORMONE 0.982 mIU/mL (0.358-3.740)
[2019-01-17 11:22] LABS: BILIRUBIN,TOTAL 0.8 mg/dL (0.2-1.0); CREATININE 2.2 mg/dL (0.6-1.3); MAGNESIUM 1.7 mg/dL (1.8-2.4); PHOSPHOROUS 3.5 mg/dL (2.5-4.9); POTASSIUM 4.4 mmol/L (3.5-5.1); TOTAL PROTEIN, SERUM 7.1 g/dL (6.4-8.2)
[2019-01-17] MEDS: BLOOD SUGAR DIAGNOSTIC 1 EACH STRIP VI SCH ×3 (11:45→21:37)
[2019-01-17] MEDS ORDERED: DEXTROSE 50% 50 ML DISP.SYRIN IV PRN (11:45)
[2019-01-17 11:48] VITALS: BP 164/74
[2019-01-17] MEDS: ACETAMINOPHEN 325 MG TABLET PO PRN (12:09)
[2019-01-17] MEDS: INSULIN REGULAR, HUMAN 300 UNIT/3 ML VIAL SQ PRN ×3 (12:43→21:38)
[2019-01-17] MEDS ORDERED: VANCOMYCIN IV 1,000 MG in IV DEXTROSE 5% 250 ML IV ONE (14:00)
[2019-01-17] MEDS: PIPERACILLIN/TAZO 2.25 G in IV DEXTROSE 5% 50 ML IV SCH ×2 (14:30→21:28)
[2019-01-17 16:00] VITALS: BP 154/65
[2019-01-17 20:00] VITALS: BP 165/70
[2019-01-18] MEDS: PIPERACILLIN/TAZO 2.25 G in IV DEXTROSE 5% 50 ML IV SCH ×4 (03:41→20:16)
[2019-01-18 04:58] VITALS: BP 171/66
[2019-01-18] MEDS ORDERED: AMLODIPINE 10 MG TABLET PO ONE (05:15)
[2019-01-18] MEDS: ACETAMINOPHEN 325 MG TABLET PO PRN (05:24)
[2019-01-18] MEDS: BLOOD SUGAR DIAGNOSTIC 1 EACH STRIP VI SCH ×4 (05:52→20:52)
[2019-01-18 06:40] LABS: BASOPHILS % (AUTO) 0.5 % (0.0-2.0); HEMATOCRIT 33.5 % (36.7-47.1); HEMOGLOBIN 11.2 g/dL (12.5-16.3); LYMPHOCYTES # (AUTO) 0.8 K/uL (20.0-40.0); LYMPHOCYTES % (AUTO) 8.2 % (20.5-51.5); MEAN CORPUSCULAR HGB CONC 33 g/dL (32.5-36.3); MEAN CORPUSCULAR VOLUME 92.7 fL (73.0-96.2); MONOCYTES # (AUTO) 0.8 K/uL (2.0-10.0); MONOCYTES % (AUTO) 8.7 % (0.0-11.0); NEUTROPHILS # (AUTO) 7.7 K/uL (1.8-8.9); NEUTROPHILS % (AUTO) 82.6 % (38.5-71.5); PLATELET COUNT (AUTO) 165 K/uL (152-348); RED BLOOD CELL COUNT(AUTO) 3.61 MIL/uL (4.06-5.63); WHITE BLOOD COUNT (AUTO) 9.3 K/uL (3.6-10.2)
[2019-01-18 06:44] LABS: MAGNESIUM 1.6 mg/dL (1.8-2.4); PHOSPHOROUS 3.6 mg/dL (2.5-4.9); VANCOMYCIN,RANDOM 9.9 ug/mL (18.0-26.0)
[2019-01-18 06:48] VITALS: BP 149/74
[2019-01-18] MEDS ORDERED: VANCOMYCIN IV 1,000 MG in IV DEXTROSE 5% 250 ML IV ONE (08:00)
[2019-01-18] MEDS: INSULIN REGULAR, HUMAN 300 UNIT/3 ML VIAL SQ PRN ×4 (09:45→20:58)
[2019-01-18] MEDS ORDERED: MAGNESIUM OXIDE 400 MG TABLET PO ONE (09:45)
[2019-01-18] MEDS: AMLODIPINE 10 MG TABLET PO SCH (10:00)
[2019-01-18 12:11] VITALS: BP 152/65
[2019-01-18 16:04] VITALS: BP 162/66
[2019-01-18 18:54] LABS: *BILIRUBIN,URIN NEGATIVE (NEGATIVE); *BLOOD, URINE 2+ (NEGATIVE); *CLARITY,URINE CLEAR (CLEAR); *COLOR,URINE YELLOW (YELLOW); *KETONES,URINE NEGATIVE (NEGATIVE); *UROBILINOGEN,URINE 0.2 E.U./dl (NORMAL); LEUKOCYTE ESTERASE ,URINE NEGATIVE (NEGATIVE); NITRITE, URINE NEGATIVE (NEGATIVE); UGLUCOSE 2+ (NEGATIVE)
[2019-01-18] MEDS: IV 1/2NS 1000 ML 1,000 ML IV PRN (19:00)
[2019-01-18 19:04] LABS: *URINE TOTAL PROTEIN RANDOM 192.5 mg/dL (<150/24HR)
[2019-01-18 19:28] LABS: BACTERIA,URINE FEW /HPF (NONE SEEN); WBC,URINE 0-3 /HPF (0-3)
[2019-01-18 19:39] LABS: URIC ACID CRYSTALS,URINE MODERATE /HPF (NONE SEEN); URINE AMORPHOUS URATE FEW /HPF
[2019-01-18 20:05] VITALS: BP 153/64
[2019-01-18] MEDS: CULTURELLE CAPSULE PO SCH (20:16)
[2019-01-19] MEDS: PIPERACILLIN/TAZO 2.25 G in IV DEXTROSE 5% 50 ML IV SCH ×4 (02:58→21:33)
[2019-01-19 04:00] VITALS: BP 120/50
[2019-01-19] MEDS: BLOOD SUGAR DIAGNOSTIC 1 EACH STRIP VI SCH ×5 (05:53→21:42)
[2019-01-19 07:00] LABS: BASOPHILS # (AUTO) 0.1 K/uL (0.0-8.0); BASOPHILS % (AUTO) 0.7 % (0.0-2.0); EOSINOPHILS # (AUTO) 0.2 K/uL (0.0-0.7); EOSINOPHILS % (AUTO) 3.1 % (0.0-7.0); HEMATOCRIT 33.1 % (36.7-47.1); HEMOGLOBIN 11.1 g/dL (12.5-16.3); LYMPHOCYTES # (AUTO) 1.3 K/uL (20.0-40.0); LYMPHOCYTES % (AUTO) 16.7 % (20.5-51.5); MEAN CORPUSCULAR HEMOGLOBIN 30.6 uug (23.8-33.4); MEAN CORPUSCULAR HGB CONC 34 g/dL (32.5-36.3); MEAN CORPUSCULAR VOLUME 91.3 fL (73.0-96.2); MONOCYTES # (AUTO) 1.1 K/uL (2.0-10.0); MONOCYTES % (AUTO) 14.5 % (0.0-11.0); NEUTROPHILS # (AUTO) 4.9 K/uL (1.8-8.9); PLATELET COUNT (AUTO) 160 K/uL (152-348); RED BLOOD CELL COUNT(AUTO) 3.62 MIL/uL (4.06-5.63); WHITE BLOOD COUNT (AUTO) 7.5 K/uL (3.6-10.2)
[2019-01-19 07:27] LABS: BILIRUBIN,TOTAL 0.9 mg/dL (0.2-1.0); CREATININE 2.3 mg/dL (0.6-1.3); TOTAL PROTEIN, SERUM 6.7 g/dL (6.4-8.2); VANCOMYCIN,RANDOM 12.5 ug/mL (18.0-26.0)
[2019-01-19 07:35] LABS: MAGNESIUM 1.9 mg/dL (1.8-2.4); PHOSPHOROUS 4.2 mg/dL (2.5-4.9)
[2019-01-19] MEDS: CULTURELLE CAPSULE PO SCH ×2 (08:28→21:33)
[2019-01-19] MEDS: AMLODIPINE 10 MG TABLET PO SCH (08:29)
[2019-01-19] MEDS: INSULIN REGULAR, HUMAN 300 UNIT/3 ML VIAL SQ PRN ×3 (08:30→18:04)
[2019-01-19] MEDS ORDERED: VANCOMYCIN IV 1,000 MG in IV DEXTROSE 5% 250 ML IV ONE (09:00)
[2019-01-19 11:36] VITALS: BP 132/54
[2019-01-19] MEDS ORDERED: DEXTROSE 50% 50 ML DISP.SYRIN IV PRN (11:45)
[2019-01-19] MEDS ORDERED: INSULIN REGULAR, HUMAN 300 UNITS/3 ML VIAL SQ PRN (11:45)
[2019-01-19] MEDS: INSULIN GLARGINE,HUM 300 UNITS/3 ML CARTRIDGE SQ SCH ×2 (12:29→21:46)
[2019-01-19 15:58] VITALS: BP 119/52
[2019-01-19 20:02] VITALS: BP 140/58
[2019-01-20] MEDS: IV 1/2NS 1000 ML 1,000 ML IV PRN (01:07)
[2019-01-20] MEDS: PIPERACILLIN/TAZO 2.25 G in IV DEXTROSE 5% 50 ML IV SCH ×2 (02:04→08:22)
[2019-01-20 05:35] VITALS: BP 134/63
[2019-01-20] MEDS: BLOOD SUGAR DIAGNOSTIC 1 EACH STRIP VI SCH ×2 (06:41→11:51)
[2019-01-20] MEDS: CULTURELLE CAPSULE PO SCH (08:22)
[2019-01-20] MEDS: AMLODIPINE 10 MG TABLET PO SCH (08:23)
[2019-01-20] MEDS: INSULIN REGULAR, HUMAN 300 UNIT/3 ML VIAL SQ PRN ×2 (08:23→12:05)
[2019-01-20] MEDS: INSULIN GLARGINE,HUM 300 UNITS/3 ML CARTRIDGE SQ SCH (08:24)
[2019-01-20] MEDS ORDERED: VANCOMYCIN IV 1,000 MG in IV DEXTROSE 5% 250 ML IV ONE (10:00)
[2019-01-20 11:43] VITALS: BP 152/59
[2019-01-20] MEDS ORDERED: FLEET ENEMA 133 ML BOTTLE RC PRN (12:15)
[2019-01-20] MEDS ORDERED: BISACODYL 10 MG SUPP.RECT RC PRN (12:15)
[2019-01-20] MEDS ORDERED: METOCLOPRAMIDE HCL 10 MG TABLET PO SCH (13:00)
[2019-01-20] MEDS ORDERED: [UNRECOGNIZED DRUG - REMARK] (15:04)
[2019-01-20] MEDS ORDERED: LACT1CAP57 PO (15:04)
[2019-01-20] MEDS ORDERED: PIPE2.2512 IV (15:04)
[2019-01-20] MEDS ORDERED: ZINC113P3 TP (15:04)
[2019-01-20] MEDS ORDERED: ONDA4TAB5 PO (15:31)
[2019-01-20] MEDS ORDERED: HYDROCORTISONE 2.5% CREAM 20 GM TUBE TOP SCH (17:00)
[2019-01-20] MEDS ORDERED: ATORVASTATIN 10 MG TABLET PO SCH (21:00)
[2019-01-20] MEDS ORDERED: TAMSULOSIN HCL 0.4 MG CAP.SR.24H PO SCH (21:00)
[2019-01-20] MEDS ORDERED: MIRTAZAPINE 15 MG TABLET PO SCH (21:00)
[2019-01-20] MEDS ORDERED: INSULIN GLARGINE,HUM 300 UNITS/3 ML CARTRIDGE SQ SCH (21:00)
[2019-01-21] MEDS ORDERED: PANTOPRAZOLE SODIUM 40 MG TABLET.DR PO SCH (07:00)
[2019-01-21] MEDS ORDERED: AMLODIPINE 10 MG TABLET PO SCH (09:00)
[2019-01-21] MEDS ORDERED: POLYETHYLENE GLYCOL 3350 238 GM POWDER PO SCH (09:00)
== END 2019-01-20 12:55 | DRG 871 ==
LOC: ER 03:58 → TELE3 05:32 → MEDSURG3 07:30
PROVIDERS: ADMIT Internal Medicine; ATTEND Internal Medicine
PROC: 0HQ1XZZ Repair Face Skin, External Approach (ICD-10-PCS; principal; 2019-01-17)
DX: A41.9 Sepsis, unspecified organism (principal); G92 Toxic encephalopathy; N17.0 Acute kidney failure with tubular necrosis; J18.9 Pneumonia, unspecified organism; D68.59 Other primary thrombophilia; R29.6 Repeated falls; S01.111A Laceration without foreign body of right eyelid and periocular area, initial encounter; W06.XXXA Fall from bed, initial encounter; Y92.092 Bedroom in other non-institutional residence as the place of occurrence of the external cause; E11.65 Type 2 diabetes mellitus with hyperglycemia; Z74.09 Other reduced mobility; E11.22 Type 2 diabetes mellitus with diabetic chronic kidney disease; I12.9 Hypertensive chronic kidney disease with stage 1 through stage 4 chronic kidney disease, or unspecified chronic kidney disease; N18.9 Chronic kidney disease, unspecified; S50.01XA Contusion of right elbow, initial encounter; E78.5 Hyperlipidemia, unspecified; D64.9 Anemia, unspecified; N40.0 Benign prostatic hyperplasia without lower urinary tract symptoms; Z91.81 History of falling; Z86.73 Personal history of transient ischemic attack (TIA), and cerebral infarction without residual deficits; Z79.899 Other long term (current) drug therapy; Z79.4 Long term (current) use of insulin; K21.9 Gastro-esophageal reflux disease without esophagitis; F03.90 Unspecified dementia, unspecified severity, without behavioral disturbance, psychotic disturbance, mood disturbance, and anxiety
CPT/HCPCS: 36415; 70030-TC; 70450; 71045; 83690; 83735; 84100; 84156; 84300; 84443; 85025; 85730; 87040; 87086; 87400; 93005; 93307; A4663; G0378; J1815; J2543; J3370; J3490; J7060

== ENCOUNTER 2019-01-20 12:57 | Inpatient (IN) | payer MEDICARE ==
[~2019-01-20] VITALS: Ht 170.2 cm; Wt 66.7 kg
[2019-01-20] MEDS ORDERED: [UNRECOGNIZED DRUG - REMARK] (15:04)
[2019-01-20] MEDS ORDERED: PIPE2.2512 IV (15:04)
[2019-01-20] MEDS ORDERED: ZINC113P3 TP (15:04)
[2019-01-20] MEDS ORDERED: LACT1CAP57 PO (15:04)
[2019-01-20] MEDS ORDERED: ONDA4TAB5 PO (15:31)
[2019-01-20] MEDS ORDERED: DEXTROSE 50% 50 ML DISP.SYRIN IV PRN (15:45)
[2019-01-20 16:09] VITALS: BP 145/58
[2019-01-20] MEDS: BLOOD SUGAR DIAGNOSTIC 1 EACH STRIP VI SCH ×2 (16:33→21:00)
--- NOTE | 2019-01-20 19:20 | NUR ---
Patient admitted from [facility] with a diagnosis of S/P fall. Patient is A&Ox 2-3 with episodes of forgetfulness noted. Able to express needs. NO acute distress noted, Vital signs checked and stable. No complains of pain during shift. Blood sugar checked and stable for patient. Verified medications with MD. Patient complained of N/V with episodes of vomiting during shift, informed MD with an order for Zofran 4mg PO q 6hrs PRN. Skin assessment done up on admission. Needs met, NO episodes of vomiting at this time. Safety measures in place, needs attended, call light left within easy reach, endorsed to next shift and will continue with care.
[2019-01-20] MEDS ORDERED: FLEET ENEMA 133 ML BOTTLE RC PRN (19:45)
[2019-01-20] MEDS ORDERED: ACETAMINOPHEN 325 MG TABLET PO PRN (19:45)
[2019-01-20] MEDS ORDERED: VANCOMYCIN IV 1,000 MG in IV DEXTROSE 5% 250 ML IV SCH (19:45)
[2019-01-20] MEDS ORDERED: ONDANSETRON HCL 4 MG TABLET PO PRN (19:45)
[2019-01-20 19:48] VITALS: BP 167/71
--- NOTE | 2019-01-20 20:19 | NUR ---
Pt is instable condition, pt is AXO X 4. able to turn. Pt's meds ordered by . bed alarm is on, pt states he has no urgent needs at this time
[2019-01-20] MEDS: CULTURELLE CAPSULE PO SCH (20:50)
[2019-01-20] MEDS: TAMSULOSIN HCL 0.4 MG CAP.SR.24H PO SCH (20:50)
[2019-01-20] MEDS: INSULIN GLARGINE,HUM 300 UNITS/3 ML CARTRIDGE SQ SCH (20:52)
[2019-01-20] MEDS: INSULIN REGULAR, HUMAN 300 UNITS/3 ML VIAL SQ PRN (20:55)
[2019-01-20] MEDS: Z GUARD REMEDY PASTE 57 GM TUBE TOP SCH (20:59)
[2019-01-20] MEDS: PIPERACILLIN/TAZO 2.25 G in IV DEXTROSE 5% 50 ML IV SCH (23:27)
[2019-01-21 04:50] VITALS: BP 145/78
--- NOTE | 2019-01-21 04:52 | NUR ---
Pt in stable condition, pt able to sleep during night, denies any pain. No fever, no nausea and no vomiting during shift
[2019-01-21] MEDS: PIPERACILLIN/TAZO 2.25 G in IV DEXTROSE 5% 50 ML IV SCH ×4 (06:52→23:14)
[2019-01-21] MEDS: PANTOPRAZOLE SODIUM 40 MG TABLET.DR PO SCH (06:53)
[2019-01-21] MEDS: BLOOD SUGAR DIAGNOSTIC 1 EACH STRIP VI SCH ×4 (07:02→21:36)
[2019-01-21 07:54] VITALS: BP 148/79
[2019-01-21] MEDS: MIRALAX 17 GM POWD.PACK PO SCH (08:27)
[2019-01-21] MEDS: CULTURELLE CAPSULE PO SCH ×2 (08:28→20:42)
[2019-01-21] MEDS: ATORVASTATIN 10 MG TABLET PO SCH (08:28)
[2019-01-21] MEDS: AMLODIPINE 10 MG TABLET PO SCH (08:28)
[2019-01-21] MEDS: INSULIN REGULAR, HUMAN 300 UNIT/3 ML VIAL SQ PRN ×3 (08:32→17:42)
[2019-01-21] MEDS: Z GUARD REMEDY PASTE 57 GM TUBE TOP SCH ×2 (08:37→20:44)
[2019-01-21] MEDS ORDERED: BISACODYL 10 MG SUPP.RECT RC PRN (09:00)
[2019-01-21] MEDS ORDERED: POLYETHYLENE GLYCOL 3350 238 GM POWDER PO SCH (09:00)
[2019-01-21] MEDS ORDERED: FENTANYL CITRATE 100 MCG/2 ML AMPUL ONE (09:36)
--- NOTE | 2019-01-21 15:08 | NUR ---
INTERDISCIPLINARY TEAM CONFERENCE
--- NOTE | 2019-01-21 15:32 | NUR ---
Clinical pharmacy note-Vancomycin dosing per pharmacy Subjective: To continue Vancomycin dosing (started from [facility] on 01/17) for S/p sepsis due to pneumonia Objective: BUN 17/scr 2.3(10/) WBC 7.5(10.2) Temp 98.5 Ht 172.7 cm Wt 68kg Vancomycin random today at 1400: 12.9 Assessment/Plan: Patient had Vancomycin 1gram yesterday at 1000. Will continue to dose by random fall off level due to decreased renal function. Vancomycin 1 gram x1 will be given today at 1600. Will order random(ordered for tomorrow at 1600) and follow the level for further dosing.
[2019-01-21 15:41] VITALS: BP 159/76
[2019-01-21] MEDS ORDERED: VANCOMYCIN IV 1,000 MG in IV DEXTROSE 5% 250 ML IV ONE (16:00)
--- NOTE | 2019-01-21 19:05 | NUR ---
Patient in bed in NO acute distress, Vital signs taken and stable for patient. Patient complained of nausea and vomited x 1 during lunch administered Zofran 4mg PO PRN Q 6hrs and effective. Patient noted with O2 saturation of 90% in RA. Informed MD with and order for O2 NC at 2lpm. O2 saturation of 97% at this time. No complains of pain during shift. Needs attended, safety measures in place, call light left at bed side, endorsed to next shift and will continue with care.
[2019-01-21 20:18] VITALS: BP 160/83
[2019-01-21 20:40] VITALS: BP 146/80
[2019-01-21] MEDS: TAMSULOSIN HCL 0.4 MG CAP.SR.24H PO SCH (20:43)
[2019-01-21] MEDS: INSULIN GLARGINE,HUM 300 UNITS/3 ML CARTRIDGE SQ SCH (20:47)
[2019-01-21] MEDS: INSULIN REGULAR, HUMAN 300 UNITS/3 ML VIAL SQ PRN (20:48)
[2019-01-22] MEDS: PIPERACILLIN/TAZO 2.25 G in IV DEXTROSE 5% 50 ML IV SCH ×4 (05:02→23:07)
[2019-01-22 05:40] VITALS: BP 157/69
[2019-01-22] MEDS: PANTOPRAZOLE SODIUM 40 MG TABLET.DR PO SCH (06:03)
[2019-01-22] MEDS: BLOOD SUGAR DIAGNOSTIC 1 EACH STRIP VI SCH ×4 (06:31→20:31)
--- NOTE | 2019-01-22 06:56 | NUR ---
Received pt lying on bed, awake alert and oriented x 2-3, with forgetfulness noted. Hooked to O2 at 2lpm via nasal cannula, O2 sat @ 96%. Continues on IV ATB for pneumonia. Administered as ordered, no ASE noted. IV to left hand patent and flushing well. No s/sx of hypo/hyperglycemia. Safety protocol in place, call light placed within easy reach. Kept clean and dry, all needs attended to. Will endorse to Am nurse for continuity of care.
[2019-01-22] MEDS: ATORVASTATIN 10 MG TABLET PO SCH (08:34)
[2019-01-22] MEDS: Z GUARD REMEDY PASTE 57 GM TUBE TOP SCH ×2 (08:35→20:32)
[2019-01-22] MEDS: CULTURELLE CAPSULE PO SCH ×2 (08:35→20:30)
[2019-01-22] MEDS: MIRALAX 17 GM POWD.PACK PO SCH (08:35)
[2019-01-22] MEDS: AMLODIPINE 10 MG TABLET PO SCH (08:36)
[2019-01-22] MEDS: INSULIN REGULAR, HUMAN 300 UNIT/3 ML VIAL SQ PRN ×3 (08:42→16:58)
--- NOTE | 2019-01-22 09:00 | NUR ---
Patient awake, alert on bed, not in any form of distress on oxygen at 1.5 LPM via NC. No complain of pain or discomfort at this time. Due medications administered and tolerated well. Assisted with his needs. Call light and frequently used items placed within reach.
[2019-01-22 09:46] VITALS: BP 165/63
--- NOTE | 2019-01-22 12:30 | NUR ---
Dr. Harsha Santana in the unit, notified regarding blood sugar trend and MD ordered to increase lantus subQ to 20 units HS.
[2019-01-22] MEDS ORDERED: HYDROCHLOROTHIAZIDE 25 MG TABLET PO SCH (13:45)
[2019-01-22] MEDS ORDERED: HYDROCHLOROTHIAZIDE 25 MG TABLET PO ONE (13:45)
[2019-01-22 16:36] VITALS: BP 131/56
[2019-01-22 19:33] VITALS: BP 132/68
[2019-01-22] MEDS: TAMSULOSIN HCL 0.4 MG CAP.SR.24H PO SCH (20:30)
[2019-01-22] MEDS: INSULIN GLARGINE,HUM 300 UNITS/3 ML CARTRIDGE SQ SCH (20:31)
[2019-01-22] MEDS: INSULIN REGULAR, HUMAN 300 UNITS/3 ML VIAL SQ PRN (20:31)
--- NOTE | 2019-01-22 21:31 | NUR ---
Received pt resting in bed. AAO x3. On 1.5 LPM O2 via NC, tolerating well. No acute distress noted. Denies pain/ discomfort. Meds given as ordered. Assisted to the bathroom to do ADLs. Safety measures maintained. Call light and personal belongings within reach. Will continue to monitor.
--- NOTE | 2019-01-22 21:35 | NUR ---
Blood sugar of 81. No regular insulin coverage as per sliding scale. Lantus refused, pt stated that his blood sugar is okay. Risks and benefits explained. Offered x3, still refused. Will continue to monitor.
[2019-01-23 04:45] VITALS: BP 148/74
[2019-01-23] MEDS: PIPERACILLIN/TAZO 2.25 G in IV DEXTROSE 5% 50 ML IV SCH ×4 (05:33→23:28)
[2019-01-23] MEDS: PANTOPRAZOLE SODIUM 40 MG TABLET.DR PO SCH (06:06)
[2019-01-23 06:21] LABS: BASOPHILS # (AUTO) 0.1 K/uL (0.0-8.0); BASOPHILS % (AUTO) 0.8 % (0.0-2.0); EOSINOPHILS # (AUTO) 0.6 K/uL (0.0-0.7); EOSINOPHILS % (AUTO) 4.9 % (0.0-7.0); HEMATOCRIT 32.9 % (36.7-47.1); HEMOGLOBIN 10.9 g/dL (12.5-16.3); LYMPHOCYTES # (AUTO) 1.5 K/uL (20.0-40.0); LYMPHOCYTES % (AUTO) 11.2 % (20.5-51.5); MEAN CORPUSCULAR HEMOGLOBIN 30.5 uug (23.8-33.4); MEAN CORPUSCULAR HGB CONC 33 g/dL (32.5-36.3); MEAN CORPUSCULAR VOLUME 91.9 fL (73.0-96.2); MONOCYTES # (AUTO) 1.3 K/uL (2.0-10.0); MONOCYTES % (AUTO) 9.7 % (0.0-11.0); NEUTROPHILS # (AUTO) 9.6 K/uL (1.8-8.9); NEUTROPHILS % (AUTO) 73.4 % (38.5-71.5); PLATELET COUNT (AUTO) 244 K/uL (152-348); RED BLOOD CELL COUNT(AUTO) 3.58 MIL/uL (4.06-5.63); WHITE BLOOD COUNT (AUTO) 13.1 K/uL (3.6-10.2)
[2019-01-23] MEDS: BLOOD SUGAR DIAGNOSTIC 1 EACH STRIP VI SCH ×4 (06:31→20:25)
--- NOTE | 2019-01-23 07:11 | NUR ---
Patient noted resting in bed with eyes closed, no facial cues of pain, no signs of distress noted, call light in reach, bed alarm in place, all needs met at this time, nasal cannula noted with 1.5 liters of Oxygen in place
[2019-01-23 07:13] LABS: CREATININE 2.1 mg/dL (0.6-1.3); PHOSPHOROUS 3.2 mg/dL (2.5-4.9); POTASSIUM 3.8 mmol/L (3.5-5.1)
[2019-01-23 08:10] VITALS: BP 131/69
[2019-01-23] MEDS: MIRALAX 17 GM POWD.PACK PO SCH (08:10)
[2019-01-23] MEDS: Z GUARD REMEDY PASTE 57 GM TUBE TOP SCH ×2 (08:10→20:30)
[2019-01-23] MEDS: INSULIN REGULAR, HUMAN 300 UNIT/3 ML VIAL SQ PRN ×3 (08:12→17:22)
[2019-01-23] MEDS: HYDROCHLOROTHIAZIDE 25 MG TABLET PO SCH (08:16)
[2019-01-23] MEDS: CULTURELLE CAPSULE PO SCH ×2 (08:16→20:21)
[2019-01-23] MEDS: AMLODIPINE 10 MG TABLET PO SCH (08:16)
[2019-01-23] MEDS: ATORVASTATIN 10 MG TABLET PO SCH (08:16)
--- NOTE | 2019-01-23 10:36 | NUR ---
INDIVIDUALIZE OVERALL PLAN OF CARE
[2019-01-23 16:48] VITALS: BP 132/60
--- NOTE | 2019-01-23 19:30 | NUR ---
In bed, awake, alert and calm. Denies any pain/discomforts. Able to make needs known. Safety measure and fall precaution maintained. Continue care as planned.
[2019-01-23] MEDS: TAMSULOSIN HCL 0.4 MG CAP.SR.24H PO SCH (20:22)
[2019-01-23] MEDS: INSULIN REGULAR, HUMAN 300 UNITS/3 ML VIAL SQ PRN (20:26)
[2019-01-23] MEDS: INSULIN GLARGINE,HUM 300 UNITS/3 ML CARTRIDGE SQ SCH (20:27)
[2019-01-23 21:07] VITALS: BP 122/74
[2019-01-24 04:00] VITALS: BP 135/66
[2019-01-24] MEDS: PIPERACILLIN/TAZO 2.25 G in IV DEXTROSE 5% 50 ML IV SCH ×3 (05:21→18:25)
--- NOTE | 2019-01-24 06:08 | NUR ---
Shift End Report: Vs stable. Slept good. Tend to get out of bed by himself without calling. No fall/injury. Been instructed patient several times to always call whenever he wants to get out of bed or using the bathroom. All needs attended and met. No significant event reported all night. Continue current rehab plan of care.
[2019-01-24] MEDS: PANTOPRAZOLE SODIUM 40 MG TABLET.DR PO SCH (06:23)
[2019-01-24] MEDS: BLOOD SUGAR DIAGNOSTIC 1 EACH STRIP VI SCH ×4 (06:47→21:39)
[2019-01-24 08:00] VITALS: BP 127/54
[2019-01-24] MEDS: CULTURELLE CAPSULE PO SCH ×2 (08:19→21:01)
[2019-01-24] MEDS: ATORVASTATIN 10 MG TABLET PO SCH (08:19)
[2019-01-24] MEDS: MIRALAX 17 GM POWD.PACK PO SCH (08:19)
[2019-01-24] MEDS: AMLODIPINE 10 MG TABLET PO SCH (08:19)
[2019-01-24] MEDS: HYDROCHLOROTHIAZIDE 25 MG TABLET PO SCH (08:20)
[2019-01-24] MEDS: Z GUARD REMEDY PASTE 57 GM TUBE TOP SCH ×2 (08:20→21:01)
[2019-01-24] MEDS: INSULIN REGULAR, HUMAN 300 UNIT/3 ML VIAL SQ PRN ×3 (08:28→17:19)
[2019-01-24 16:14] VITALS: BP 126/50
[2019-01-24] MEDS: glipiZIDE 5 MG TABLET PO SCH (17:12)
--- NOTE | 2019-01-24 19:30 | NUR ---
Received patient quietly sleeping on his right side. No s/s of respiratory distress , tolerating O2 at 1.5L/min via NC, saturating 96%. Safety measures and afll precaution maintained. Continue care as planned.
[2019-01-24 20:24] VITALS: BP 130/55
[2019-01-24] MEDS: INSULIN GLARGINE,HUM 300 UNITS/3 ML CARTRIDGE SQ SCH (21:00)
[2019-01-24] MEDS: TAMSULOSIN HCL 0.4 MG CAP.SR.24H PO SCH (21:01)
--- NOTE | 2019-01-24 21:25 | NUR ---
Bs rechecked after giving orange juice 95 mg/dl. Will monitor.
--- NOTE | 2019-01-24 22:34 | NUR ---
Rechecked BS, this time 123mg/dl. Denied any s/s of hypo/hyperglycemia.
--- NOTE | 2019-01-25 05:49 | NUR ---
Shift End Report: Vs stable. Slept in between care. Calm and cooperative. No complaint presented all night. All needs attended and met. No fall/injury, No significant event reported. Continue current plan of care.
[2019-01-25 05:52] VITALS: BP 135/58
[2019-01-25] MEDS: glipiZIDE 5 MG TABLET PO SCH ×2 (06:39→16:38)
[2019-01-25] MEDS: BLOOD SUGAR DIAGNOSTIC 1 EACH STRIP VI SCH ×4 (06:39→20:09)
[2019-01-25] MEDS: PANTOPRAZOLE SODIUM 40 MG TABLET.DR PO SCH (06:39)
[2019-01-25 07:45] VITALS: BP 136/46
[2019-01-25] MEDS: MIRALAX 17 GM POWD.PACK PO SCH (08:44)
[2019-01-25] MEDS: ATORVASTATIN 10 MG TABLET PO SCH (08:49)
[2019-01-25] MEDS: HYDROCHLOROTHIAZIDE 25 MG TABLET PO SCH (08:50)
[2019-01-25] MEDS: CULTURELLE CAPSULE PO SCH ×2 (08:50→20:16)
[2019-01-25] MEDS: AMLODIPINE 10 MG TABLET PO SCH (08:50)
[2019-01-25] MEDS: Z GUARD REMEDY PASTE 57 GM TUBE TOP SCH ×2 (08:51→20:20)
[2019-01-25] MEDS: INSULIN REGULAR, HUMAN 300 UNIT/3 ML VIAL SQ PRN ×3 (09:53→16:28)
--- NOTE | 2019-01-25 12:00 | NUR ---
Noted patient with blood sugar of 457, given insulin per sliding scale, and notified Dr. Brown, per MD he will check into it, no new order at this time.
[2019-01-25 15:41] VITALS: BP 132/62
[2019-01-25 20:10] VITALS: BP 135/68
[2019-01-25] MEDS: TAMSULOSIN HCL 0.4 MG CAP.SR.24H PO SCH (20:16)
[2019-01-25] MEDS: INSULIN GLARGINE,HUM 300 UNITS/3 ML CARTRIDGE SQ SCH (20:18)
[2019-01-25] MEDS: INSULIN REGULAR, HUMAN 300 UNITS/3 ML VIAL SQ PRN (20:19)
--- NOTE | 2019-01-25 20:44 | NUR ---
Received pt resting in bed and watching tv. AAO x2-3, forgetful. No acute distress noted. Denies pain/ discomfort. Blood sugar of 197, insulin coverage given as per sliding scale. Other due meds given as ordered. Picture taken and placed in chart. Safety measures maintained. Call light and personal belongings within reach. Will continue to monitor.
--- NOTE | 2019-01-25 20:45 | NUR ---
Skin assessment done and picture taken and placed in chart. However, pt refused to be assessed in the perineal area. Pt uses urinal and continent. Teaching provided, still refused. Will continue to monitor.
[2019-01-26 06:08] VITALS: BP 141/68
[2019-01-26] MEDS: PANTOPRAZOLE SODIUM 40 MG TABLET.DR PO SCH (06:19)
[2019-01-26] MEDS: BLOOD SUGAR DIAGNOSTIC 1 EACH STRIP VI SCH ×4 (06:30→20:49)
--- NOTE | 2019-01-26 07:35 | NUR ---
Patient received in bed awake at this time. In NO acute distress. Patient is A&O x 3, able to express needs with episodes of forgetfulness noted. safety measures in place, call light left at bed side and will continue with care.
[2019-01-26] MEDS: INSULIN REGULAR, HUMAN 300 UNIT/3 ML VIAL SQ PRN ×4 (07:56→17:04)
[2019-01-26 08:00] VITALS: BP 121/65
[2019-01-26] MEDS: CULTURELLE CAPSULE PO SCH ×2 (08:05→20:38)
[2019-01-26] MEDS: ATORVASTATIN 10 MG TABLET PO SCH (08:06)
[2019-01-26] MEDS: glipiZIDE 5 MG TABLET PO SCH ×2 (08:06→17:06)
[2019-01-26] MEDS: HYDROCHLOROTHIAZIDE 25 MG TABLET PO SCH (08:40)
[2019-01-26] MEDS: MIRALAX 17 GM POWD.PACK PO SCH (08:41)
[2019-01-26] MEDS: AMLODIPINE 10 MG TABLET PO SCH (08:41)
[2019-01-26] MEDS: Z GUARD REMEDY PASTE 57 GM TUBE TOP SCH ×2 (08:47→20:48)
--- NOTE | 2019-01-26 15:30 | NUR ---
D/C IV line on left arm. Intact and dry.
[2019-01-26 16:00] VITALS: BP 118/61
--- NOTE | 2019-01-26 18:58 | NUR ---
Patient A&O x 3 with episodes of forgetfulness noted. Vital signs taken and stable. Blood sugar checked and administered insulin per sliding scale. tolerated well. Skin kept clean and dry. Pt. on PT/OT services. Pt. cooperative with care. Needs attended, safety measure in place call light left at bed side, endorsed to next shift and will continue with care.
[2019-01-26 19:39] VITALS: BP 141/63
--- NOTE | 2019-01-26 19:40 | NUR ---
Patient received in bed, AAO x2-3, sometimes forgetful. Not in acute distress or SOB. Able to make needs known. On room air. VS stable. No complain of pain at this time. Physical assessment done. Fall prevention observed. Safety measures maintained. Bed in low and lock position, alarm on, side rails up x2 for safety. Educated patient to use call light. Call light and frequently used items within reach. Continue to monitor.
[2019-01-26] MEDS: TAMSULOSIN HCL 0.4 MG CAP.SR.24H PO SCH (20:38)
[2019-01-26] MEDS: INSULIN GLARGINE,HUM 300 UNITS/3 ML CARTRIDGE SQ SCH (20:40)
[2019-01-26] MEDS: INSULIN REGULAR, HUMAN 300 UNITS/3 ML VIAL SQ PRN (20:40)
[2019-01-27] MEDS: PANTOPRAZOLE SODIUM 40 MG TABLET.DR PO SCH (06:11)
[2019-01-27] MEDS: BLOOD SUGAR DIAGNOSTIC 1 EACH STRIP VI SCH ×4 (06:51→21:06)
[2019-01-27] MEDS: glipiZIDE 5 MG TABLET PO SCH ×2 (06:54→17:45)
[2019-01-27 06:57] VITALS: BP 116/57
--- NOTE | 2019-01-27 07:04 | NUR ---
Patient was stable during the shift and had a good sleep last night. Not in acute distress or SOB. On room air. VS checked, stable. No complain of pain. Accucheck @2100 BS: 137, covered by 2 units insulin based on sliding scale, @0630 BS: 151. All medication administered and well tolerated. Picture taken from the skin problem on peroneal/groin area and put in the chart. All needs attended promptly. Physical assessment done. Fall prevention observed. Safety measures maintained. Bed in low and lock position, alarm on, side rails up x2 for safety. Call light and frequently used items within reach. Continue to monitor and will endorse to the day shift nurse accordingly.
--- NOTE | 2019-01-27 07:39 | NUR ---
patient is in sleep, no sob,resp even nonlabored, no distress noted
[2019-01-27 07:56] VITALS: BP 120/70
[2019-01-27] MEDS: INSULIN REGULAR, HUMAN 300 UNIT/3 ML VIAL SQ PRN ×3 (08:07→17:36)
[2019-01-27] MEDS: ATORVASTATIN 10 MG TABLET PO SCH (08:10)
[2019-01-27] MEDS: CULTURELLE CAPSULE PO SCH ×2 (08:11→21:06)
[2019-01-27] MEDS: MIRALAX 17 GM POWD.PACK PO SCH (08:11)
[2019-01-27] MEDS: AMLODIPINE 10 MG TABLET PO SCH (08:11)
[2019-01-27] MEDS: HYDROCHLOROTHIAZIDE 25 MG TABLET PO SCH (08:12)
[2019-01-27] MEDS: Z GUARD REMEDY PASTE 57 GM TUBE TOP SCH ×2 (08:45→21:16)
[2019-01-27 18:20] VITALS: BP 128/72
[2019-01-27 19:35] VITALS: BP 136/76
[2019-01-27] MEDS: TAMSULOSIN HCL 0.4 MG CAP.SR.24H PO SCH (21:06)
[2019-01-27] MEDS: INSULIN GLARGINE,HUM 300 UNITS/3 ML CARTRIDGE SQ SCH (21:11)
[2019-01-27] MEDS: INSULIN REGULAR, HUMAN 300 UNITS/3 ML VIAL SQ PRN (21:13)
--- NOTE | 2019-01-28 04:08 | NUR ---
Patient received in bed, AAO x2-3, sometimes forgetful. Not in acute distress or SOB. Able to make needs known. On room air. VS checked, stable. No complain of pain at this time. Patient was stable during the shift and had a good sleep last night. Accucheck @2100 BS: 151, covered by 2 units insulin based on sliding scale. All medication administered and well tolerated. All needs attended promptly. Physical assessment done. Fall prevention observed. Safety measures maintained. Bed in low and lock position, alarm on, side rails up x2 for safety. Call light and frequently used items within reach. Continue to monitor and will endorse to the day shift nurse accordingly.
[2019-01-28 05:43] VITALS: BP 120/62
[2019-01-28] MEDS: PANTOPRAZOLE SODIUM 40 MG TABLET.DR PO SCH (06:06)
[2019-01-28] MEDS: glipiZIDE 5 MG TABLET PO SCH ×2 (06:38→17:27)
[2019-01-28] MEDS: BLOOD SUGAR DIAGNOSTIC 1 EACH STRIP VI SCH ×4 (06:39→20:28)
[2019-01-28] MEDS: INSULIN REGULAR, HUMAN 300 UNIT/3 ML VIAL SQ PRN ×4 (08:05→20:19)
[2019-01-28 08:49] LABS: BASOPHILS # (AUTO) 0.1 K/uL (0.0-8.0); BASOPHILS % (AUTO) 0.6 % (0.0-2.0); EOSINOPHILS # (AUTO) 0.2 K/uL (0.0-0.7); EOSINOPHILS % (AUTO) 2.1 % (0.0-7.0); HEMATOCRIT 36.8 % (36.7-47.1); HEMOGLOBIN 12.3 g/dL (12.5-16.3); LYMPHOCYTES # (AUTO) 1.7 K/uL (20.0-40.0); LYMPHOCYTES % (AUTO) 15.9 % (20.5-51.5); MEAN CORPUSCULAR HEMOGLOBIN 30.5 uug (23.8-33.4); MEAN CORPUSCULAR HGB CONC 33 g/dL (32.5-36.3); MEAN CORPUSCULAR VOLUME 91.3 fL (73.0-96.2); MONOCYTES # (AUTO) 1.6 K/uL (2.0-10.0); NEUTROPHILS % (AUTO) 66.4 % (38.5-71.5); RED BLOOD CELL COUNT(AUTO) 4.02 MIL/uL (4.06-5.63); WHITE BLOOD COUNT (AUTO) 10.5 K/uL (3.6-10.2)
[2019-01-28 08:56] LABS: PLATELET COUNT (AUTO) 336 K/uL (152-348)
[2019-01-28] MEDS: CULTURELLE CAPSULE PO SCH ×2 (09:03→20:14)
[2019-01-28] MEDS: ATORVASTATIN 10 MG TABLET PO SCH (09:03)
[2019-01-28] MEDS: AMLODIPINE 10 MG TABLET PO SCH (09:03)
[2019-01-28] MEDS: HYDROCHLOROTHIAZIDE 25 MG TABLET PO SCH (09:04)
[2019-01-28] MEDS: MIRALAX 17 GM POWD.PACK PO SCH (09:05)
[2019-01-28 09:19] LABS: BILIRUBIN,TOTAL 0.7 mg/dL (0.2-1.0); CREATININE 2.1 mg/dL (0.6-1.3); MAGNESIUM 2.2 mg/dL (1.8-2.4); PHOSPHOROUS 3.8 mg/dL (2.5-4.9); POTASSIUM 4.2 mmol/L (3.5-5.1); TOTAL PROTEIN, SERUM 7.8 g/dL (6.4-8.2)
[2019-01-28] MEDS: Z GUARD REMEDY PASTE 57 GM TUBE TOP SCH ×2 (09:25→20:25)
[2019-01-28 09:54] LABS: BAND % (MANUAL) 2 % (0-10); BASOPHILS % (MANUAL) 2 % (0-2); EOSINOPHILS % (MANUAL) 2 % (0-8); LYMPHOCYTES % (MANUAL) 14 % (20-40); METAMYELOCYTES % 3 % (0-1); MONOCYTES % (MANUAL) 9 % (2-10); MYELOCYTES % 4 % (0-0); NEUTROPHILS % (MANUAL) 64 % (42-75)
--- NOTE | 2019-01-28 11:24 | NUR ---
WOUND CARE CONSULT: PT PRESENTS WITH RASH TO INNER THIGHS, PERINEUM AND GROIN AREAS. RECOMMENDATIONS MADE FOR SKIN CARE AND PROTECTION. DISCUSSED WITH NURSING STAFF. PT IS CONTINENT. CURRENT TATA SCORE IS 17. WILL SEE PRN. Addendum: 01/28/19 at 1125 by WILLIAM SHARMA RN Amended: Links added.
--- NOTE | 2019-01-28 15:46 | NUR ---
INTERDISCIPLINARY TEAM CONFERENCE
[2019-01-28 15:53] VITALS: BP 129/70
[2019-01-28] MEDS: CLOTRIMAZOLE/BETAMET DIPROP CREAM 15 GM TUBE TOP SCH ×2 (17:26→20:25)
--- NOTE | 2019-01-28 19:48 | NUR ---
Patient in bed awake at this time. In NO acute distress. Pt. is A&O x 2-3 with epsidoes of forgetfulness. No complains of pain. Pt. noted with at BS of 406 before lunch administered insulin per sliding scale as ordered and informed MD. BS before dinner of 210 with coverage. Needs met, safety measures in place, endorsed to next shift and will continue with care.
[2019-01-28] MEDS: TAMSULOSIN HCL 0.4 MG CAP.SR.24H PO SCH (20:14)
[2019-01-28] MEDS: INSULIN GLARGINE,HUM 300 UNITS/3 ML CARTRIDGE SQ SCH (20:17)
[2019-01-28 20:33] VITALS: BP 128/67
--- NOTE | 2019-01-29 04:21 | NUR ---
No acute events over night. pt currently sleeping, denies any pain. No nausea and no vomiting during shift, pt has intermittent cough. Bed alarm is on, call light within reach.
[2019-01-29 05:52] VITALS: BP 128/69
[2019-01-29] MEDS: PANTOPRAZOLE SODIUM 40 MG TABLET.DR PO SCH (06:37)
[2019-01-29] MEDS: BLOOD SUGAR DIAGNOSTIC 1 EACH STRIP VI SCH ×4 (06:40→20:17)
[2019-01-29 07:30] VITALS: BP 125/59
--- NOTE | 2019-01-29 07:47 | NUR ---
Patient in bed awake watching TV, breathing even and unlabored. No acute distress; call light let at bed side and will continue with care.
[2019-01-29] MEDS: glipiZIDE 5 MG TABLET PO SCH ×2 (08:02→17:07)
[2019-01-29] MEDS: INSULIN REGULAR, HUMAN 300 UNIT/3 ML VIAL SQ PRN ×3 (08:06→17:04)
[2019-01-29] MEDS: CULTURELLE CAPSULE PO SCH ×2 (08:55→20:17)
[2019-01-29] MEDS: MIRALAX 17 GM POWD.PACK PO SCH (08:55)
[2019-01-29] MEDS: AMLODIPINE 10 MG TABLET PO SCH (08:56)
[2019-01-29] MEDS: ATORVASTATIN 10 MG TABLET PO SCH (08:56)
[2019-01-29] MEDS: HYDROCHLOROTHIAZIDE 25 MG TABLET PO SCH (08:56)
[2019-01-29 09:10] LABS: BASOPHILS # (AUTO) 0.1 K/uL (0.0-8.0); BASOPHILS % (AUTO) 0.6 % (0.0-2.0); EOSINOPHILS # (AUTO) 0.2 K/uL (0.0-0.7); EOSINOPHILS % (AUTO) 1.8 % (0.0-7.0); HEMATOCRIT 36.5 % (36.7-47.1); HEMOGLOBIN 12.3 g/dL (12.5-16.3); LYMPHOCYTES # (AUTO) 1.4 K/uL (20.0-40.0); LYMPHOCYTES % (AUTO) 14.4 % (20.5-51.5); MEAN CORPUSCULAR HEMOGLOBIN 30.8 uug (23.8-33.4); MEAN CORPUSCULAR HGB CONC 34 g/dL (32.5-36.3); MEAN CORPUSCULAR VOLUME 91.3 fL (73.0-96.2); MONOCYTES # (AUTO) 0.9 K/uL (2.0-10.0); MONOCYTES % (AUTO) 9.2 % (0.0-11.0); PLATELET COUNT (AUTO) 325 K/uL (152-348); WHITE BLOOD COUNT (AUTO) 9.5 K/uL (3.6-10.2)
[2019-01-29 09:18] LABS: BILIRUBIN,TOTAL 0.8 mg/dL (0.2-1.0); CREATININE 2.3 mg/dL (0.6-1.3); MAGNESIUM 2.2 mg/dL (1.8-2.4); PHOSPHOROUS 4.3 mg/dL (2.5-4.9); POTASSIUM 4.4 mmol/L (3.5-5.1); TOTAL PROTEIN, SERUM 7.7 g/dL (6.4-8.2)
[2019-01-29] MEDS: CLOTRIMAZOLE/BETAMET DIPROP CREAM 15 GM TUBE TOP SCH ×2 (09:20→20:25)
[2019-01-29] MEDS: Z GUARD REMEDY PASTE 57 GM TUBE TOP SCH ×2 (09:21→20:25)
[2019-01-29 16:00] VITALS: BP 118/54
--- NOTE | 2019-01-29 16:00 | NUR ---
Spoke with MD regarding patient blood sugar scales. Also F/U with Podiatry for consultation for Thursday. Needs attended. No complains of pain during shift. Safety needs in place and will continue with care.
[2019-01-29 19:57] VITALS: BP 117/58
[2019-01-29] MEDS: TAMSULOSIN HCL 0.4 MG CAP.SR.24H PO SCH (20:17)
[2019-01-29] MEDS: INSULIN REGULAR, HUMAN 300 UNITS/3 ML VIAL SQ PRN (20:18)
[2019-01-29] MEDS ORDERED: INSULIN GLARGINE,HUM 300 UNITS/3 ML CARTRIDGE SQ SCH (21:00)
--- NOTE | 2019-01-29 22:15 | NUR ---
Received pt resting in bed. AAO x2-3. No acute distress noted. Denies pain/ discomfort. PM care done. All due meds given as ordered. Insulin coverage given as per sliding scale. Safety measures maintained. Call light and personal belongings within reach. Will continue to monitor.
[2019-01-30 04:43] VITALS: BP 118/60
[2019-01-30] MEDS: PANTOPRAZOLE SODIUM 40 MG TABLET.DR PO SCH (06:09)
[2019-01-30] MEDS: BLOOD SUGAR DIAGNOSTIC 1 EACH STRIP VI SCH ×4 (06:38→20:07)
--- NOTE | 2019-01-30 07:48 | NUR ---
Patient noted resting in bed with eyes closed, no facial cues of pain noted, no signs of distress noted, call light in reach, bed locked and in lowest position, all needs met at this time
[2019-01-30 08:00] VITALS: BP 137/71
[2019-01-30] MEDS: ATORVASTATIN 10 MG TABLET PO SCH (08:33)
[2019-01-30] MEDS: HYDROCHLOROTHIAZIDE 25 MG TABLET PO SCH (08:33)
[2019-01-30] MEDS: glipiZIDE 5 MG TABLET PO SCH ×2 (08:33→17:34)
[2019-01-30] MEDS: CULTURELLE CAPSULE PO SCH ×2 (08:33→20:07)
[2019-01-30] MEDS: MIRALAX 17 GM POWD.PACK PO SCH (08:34)
[2019-01-30] MEDS: AMLODIPINE 10 MG TABLET PO SCH (08:34)
[2019-01-30] MEDS: CLOTRIMAZOLE/BETAMET DIPROP CREAM 15 GM TUBE TOP SCH ×2 (08:34→20:08)
[2019-01-30] MEDS: Z GUARD REMEDY PASTE 57 GM TUBE TOP SCH ×2 (08:35→20:08)
[2019-01-30] MEDS: INSULIN REGULAR, HUMAN 300 UNIT/3 ML VIAL SQ PRN ×2 (12:32→17:32)
[2019-01-30 17:51] VITALS: BP 108/50
--- NOTE | 2019-01-30 19:27 | NUR ---
MD Brown notified of FSBS of 485..15 units of insulin given per protocol given, increased 24 units to 30 units
[2019-01-30] MEDS: TAMSULOSIN HCL 0.4 MG CAP.SR.24H PO SCH (20:07)
[2019-01-30] MEDS: INSULIN REGULAR, HUMAN 300 UNITS/3 ML VIAL SQ PRN (20:07)
[2019-01-30] MEDS: INSULIN GLARGINE,HUM 300 UNITS/3 ML CARTRIDGE SQ SCH (20:14)
--- NOTE | 2019-01-30 20:31 | NUR ---
Received pt resting in bed. AAO x2-3. No acute distress noted. Denies pain/ discomfort. Blood sugar of 89. No regular insulin coverage given as per sliding scale. Lantus given as ordered, since pt's blood sugar trend tends to be high. Will monitor closely for s/s of hypo/ hyperglycemia. All other due meds given as ordered. Safety measures maintained. Call light and personal belongings within reach. Will continue to monitor.
[2019-01-30 21:36] VITALS: BP 94/48
[2019-01-30 22:51] VITALS: BP 129/57
--- NOTE | 2019-01-30 22:53 | NUR ---
Pt c/o feeling having a low blood sugar. Upon recheck, blood sugar of 42 mg/dL. 8 oz of orange juice given and provided snack. Rechecked after 30 minutes, pt's blood sugar is now 70 mg/ dL. Pt stated to feeling better. VS WNL. Will continue to closely monitor.
--- NOTE | 2019-01-30 23:48 | NUR ---
Rechecked blood sugar, it is now 75 mg/ dL. Pt stated that he is already feeling good. No c/o s/s of hypo/ hyperglycemia at this time. Will continue to monitor.
[2019-01-31 04:00] VITALS: BP 121/53
[2019-01-31] MEDS: PANTOPRAZOLE SODIUM 40 MG TABLET.DR PO SCH (06:15)
[2019-01-31] MEDS: BLOOD SUGAR DIAGNOSTIC 1 EACH STRIP VI SCH ×4 (06:35→20:24)
[2019-01-31] MEDS: INSULIN REGULAR, HUMAN 300 UNIT/3 ML VIAL SQ PRN ×3 (08:18→16:55)
[2019-01-31] MEDS: CULTURELLE CAPSULE PO SCH ×2 (08:20→20:22)
[2019-01-31] MEDS: ATORVASTATIN 10 MG TABLET PO SCH (08:20)
[2019-01-31] MEDS: glipiZIDE 5 MG TABLET PO SCH ×2 (08:20→16:43)
[2019-01-31] MEDS: CLOTRIMAZOLE/BETAMET DIPROP CREAM 15 GM TUBE TOP SCH ×2 (08:21→20:25)
[2019-01-31] MEDS: MIRALAX 17 GM POWD.PACK PO SCH (08:21)
[2019-01-31] MEDS: HYDROCHLOROTHIAZIDE 25 MG TABLET PO SCH (08:21)
[2019-01-31] MEDS: AMLODIPINE 10 MG TABLET PO SCH (08:21)
[2019-01-31] MEDS: Z GUARD REMEDY PASTE 57 GM TUBE TOP SCH ×2 (08:22→20:24)
--- NOTE | 2019-01-31 08:51 | NUR ---
Patient noted sitting up in bed eating breakfast, no facial cues of pain noted, no signs of distress noted, took all AM medications, call light in reach, bed locked and in lowest position, all needs met at this time
[2019-01-31 08:55] VITALS: BP 117/56
[2019-01-31 17:38] VITALS: BP 120/64
--- NOTE | 2019-01-31 19:45 | NUR ---
Patient received in bed, AAO x3. Not in acute distress or SOB. Able to make needs known. On room air. VS checked, stable. No complain of pain at this time. All needs attended promptly. Physical assessment done. Fall prevention observed. Safety measures maintained. Bed in low and lock position, alarm on, side rails up x2 for safety. Call light and frequently used items within reach. Will continue to monitor.
[2019-01-31 19:53] VITALS: BP 121/64
[2019-01-31] MEDS: TAMSULOSIN HCL 0.4 MG CAP.SR.24H PO SCH (20:22)
[2019-01-31] MEDS: INSULIN GLARGINE,HUM 300 UNITS/3 ML CARTRIDGE SQ SCH ×2 (20:26→21:00)
[2019-02-01 04:52] VITALS: BP 122/59
[2019-02-01] MEDS: PANTOPRAZOLE SODIUM 40 MG TABLET.DR PO SCH (06:05)
[2019-02-01] MEDS: BLOOD SUGAR DIAGNOSTIC 1 EACH STRIP VI SCH ×5 (06:33→20:21)
[2019-02-01] MEDS: glipiZIDE 5 MG TABLET PO SCH ×2 (06:33→16:54)
--- NOTE | 2019-02-01 06:41 | NUR ---
Pt. was stable all night and slept well. All medication given and tolerated well. No signs and symptoms of pain. All needs met and anticipated. Bed is in low position, locked, and bed alarm is on. Will endorsed to oncoming nurse.
[2019-02-01 07:20] LABS: BASOPHILS % (AUTO) 0.2 % (0.0-2.0); EOSINOPHILS % (AUTO) 0.2 % (0.0-7.0); HEMATOCRIT 35.5 % (36.7-47.1); HEMOGLOBIN 11.9 g/dL (12.5-16.3); LYMPHOCYTES # (AUTO) 1.1 K/uL (20.0-40.0); LYMPHOCYTES % (AUTO) 10.4 % (20.5-51.5); MEAN CORPUSCULAR HEMOGLOBIN 30.4 uug (23.8-33.4); MEAN CORPUSCULAR HGB CONC 34 g/dL (32.5-36.3); MEAN CORPUSCULAR VOLUME 90.8 fL (73.0-96.2); MONOCYTES # (AUTO) 0.6 K/uL (2.0-10.0); MONOCYTES % (AUTO) 5.2 % (0.0-11.0); NEUTROPHILS # (AUTO) 8.9 K/uL (1.8-8.9); PLATELET COUNT (AUTO) 323 K/uL (152-348); RED BLOOD CELL COUNT(AUTO) 3.91 MIL/uL (4.06-5.63); WHITE BLOOD COUNT (AUTO) 10.6 K/uL (3.6-10.2)
[2019-02-01 07:38] LABS: CREATININE 2.1 mg/dL (0.6-1.3); MAGNESIUM 2.3 mg/dL (1.8-2.4); PHOSPHOROUS 3.8 mg/dL (2.5-4.9); POTASSIUM 3.8 mmol/L (3.5-5.1)
[2019-02-01 07:46] VITALS: BP 145/65
[2019-02-01] MEDS: AMLODIPINE 10 MG TABLET PO SCH (08:45)
[2019-02-01] MEDS: ATORVASTATIN 10 MG TABLET PO SCH (08:45)
[2019-02-01] MEDS: CULTURELLE CAPSULE PO SCH ×2 (08:45→20:17)
[2019-02-01] MEDS: CLOTRIMAZOLE/BETAMET DIPROP CREAM 15 GM TUBE TOP SCH ×2 (08:46→20:23)
[2019-02-01] MEDS: HYDROCHLOROTHIAZIDE 25 MG TABLET PO SCH (08:46)
[2019-02-01] MEDS: Z GUARD REMEDY PASTE 57 GM TUBE TOP SCH ×2 (08:46→20:24)
[2019-02-01] MEDS: MIRALAX 17 GM POWD.PACK PO SCH (08:46)
[2019-02-01] MEDS: INSULIN REGULAR, HUMAN 300 UNIT/3 ML VIAL SQ PRN ×3 (08:49→17:26)
[2019-02-01] MEDS: INSULIN GLARGINE,HUM 300 UNITS/3 ML CARTRIDGE SQ SCH ×2 (08:58→20:19)
--- NOTE | 2019-02-01 12:16 | NUR ---
Pt received this morning, resting in bed, no acute distress noted. Pt denies pain and SOB. Pt compliant with routine medication administration and cooperative with therapies as offered. BS checked prior to lunch result of [address] Altman. Pt is asymptomatic at this time. Plan to continue to monitor, MD to reevaluate current medication regimen, and administer 15units of coverage per sliding scale discussed. Will continue to monitor. Pt assisted to sit up for lunch. Bed in locked and lowest position, with side rails up x2, alarm on. Call light placed within reach. Will continue to monitor.
[2019-02-01 15:15] VITALS: BP 121/55
--- NOTE | 2019-02-01 18:47 | NUR ---
BS rechecked 314, Pt asymptomatic, denies pain, no acute distress. Pt BS prior to dinner 176, covered with 3 units of insulin. All needs promptly attended to throughout the shift. Will continue to monitor and endorse to oncoming robotic machine operator.
[2019-02-01 20:17] VITALS: BP 127/57
[2019-02-01] MEDS: TAMSULOSIN HCL 0.4 MG CAP.SR.24H PO SCH (20:17)
[2019-02-01] MEDS: INSULIN REGULAR, HUMAN 300 UNITS/3 ML VIAL SQ PRN (20:22)
[2019-02-02 04:39] VITALS: BP 127/56
--- NOTE | 2019-02-02 05:25 | NUR ---
Pt. was stable and slept all night. All medication given and tolerated well. All needs met and anticipated. Physical assessment done. Pain assessment done, no signs and symptoms of pain. Fall prevention observed. Safety measures maintained. Bed in low and lock position, alarm on, side rails up x2 for safety. Call light and frequently used items within reach. Will endorse to oncoming nurse.
[2019-02-02] MEDS: PANTOPRAZOLE SODIUM 40 MG TABLET.DR PO SCH (06:29)
[2019-02-02] MEDS: glipiZIDE 5 MG TABLET PO SCH ×2 (06:30→17:01)
[2019-02-02] MEDS: BLOOD SUGAR DIAGNOSTIC 1 EACH STRIP VI SCH ×4 (06:31→20:58)
[2019-02-02 07:45] VITALS: BP 128/65
[2019-02-02] MEDS: ATORVASTATIN 10 MG TABLET PO SCH (08:35)
[2019-02-02] MEDS: AMLODIPINE 10 MG TABLET PO SCH (08:36)
[2019-02-02] MEDS: MIRALAX 17 GM POWD.PACK PO SCH (08:36)
[2019-02-02] MEDS: CULTURELLE CAPSULE PO SCH ×2 (08:36→20:43)
[2019-02-02] MEDS: HYDROCHLOROTHIAZIDE 25 MG TABLET PO SCH (08:37)
[2019-02-02] MEDS: INSULIN GLARGINE,HUM 300 UNITS/3 ML CARTRIDGE SQ SCH ×2 (08:41→20:55)
[2019-02-02] MEDS: CLOTRIMAZOLE/BETAMET DIPROP CREAM 15 GM TUBE TOP SCH ×2 (09:00→20:50)
[2019-02-02] MEDS: Z GUARD REMEDY PASTE 57 GM TUBE TOP SCH ×2 (09:01→20:51)
[2019-02-02] MEDS: INSULIN REGULAR, HUMAN 300 UNIT/3 ML VIAL SQ PRN ×2 (12:05→16:50)
[2019-02-02 16:09] VITALS: BP 129/54
--- NOTE | 2019-02-02 18:20 | NUR ---
PATIENT IS STABLE, MOST THE TIME STAYS IN HIS ROOM, QUIET, EXAMINED BY PSYCHIATRIC DR PADGETT, GOING TO START ON REMERON ORDERED, TOLERATED MEALS AND MEDS WELL, PARTICIPATED IN OT, OT, TOLERATED WELL, BLOOD SUGAR MANAGED WITH INSULIN, DIET. TEACHING DONE ABOUT CONTROLLING THE BLOOD SUGAR, PATIENT VERBALIZED UNDERSTANDING OF IT, NO SIGNS AND SYMPTOMS OF HYPO/HYPERGLYCEMIA NOTED, CONTINUE TO MONITOR, WILL ENDORSE ACCORDINGLY.
[2019-02-02 19:57] VITALS: BP 134/63
[2019-02-02] MEDS: TAMSULOSIN HCL 0.4 MG CAP.SR.24H PO SCH (20:43)
[2019-02-02] MEDS ORDERED: MIRTAZAPINE 15 MG TABLET PO SCH (21:00)
--- NOTE | 2019-02-03 00:43 | NUR ---
Remained in bed most of the shift. aaox3. needs attended. VSS. kept comfortable. compliant with meds and care. Tolerated po meds well. Accucheck 108. Will monitor patient. Continent of bowel and bladder. No BM noted this shift. Fall precautions maintained. Denies any pain nor any discomfort.
[2019-02-03 04:52] VITALS: BP 120/56
[2019-02-03] MEDS: PANTOPRAZOLE SODIUM 40 MG TABLET.DR PO SCH (06:09)
[2019-02-03] MEDS: BLOOD SUGAR DIAGNOSTIC 1 EACH STRIP VI SCH ×2 (06:30→11:30)
[2019-02-03 08:04] VITALS: BP 133/64
[2019-02-03 09:01] VITALS: BP 133/64
[2019-02-03] MEDS: ATORVASTATIN 10 MG TABLET PO SCH (09:01)
[2019-02-03] MEDS: CULTURELLE CAPSULE PO SCH (09:01)
[2019-02-03] MEDS: MIRALAX 17 GM POWD.PACK PO SCH (09:01)
[2019-02-03] MEDS: AMLODIPINE 10 MG TABLET PO SCH (09:01)
[2019-02-03] MEDS: glipiZIDE 5 MG TABLET PO SCH (09:01)
[2019-02-03] MEDS: CLOTRIMAZOLE/BETAMET DIPROP CREAM 15 GM TUBE TOP SCH (09:02)
[2019-02-03] MEDS: Z GUARD REMEDY PASTE 57 GM TUBE TOP SCH (09:02)
--- NOTE | 2019-02-03 09:30 | NUR ---
Received patient awake and alert and oriented x 2-3 in bed, no c/o pain at this time. No s/s acute distress notes. Kept clean and dry at all times. Safety and comfort provided at all times. Call light within reached and will continue to monitor. Dr. Altman on-site, seen pt. and deemed appropriate for discharge. TMS signed by MD. No s/sx of hypo/hyperglycemia. Continue plan of care.
[2019-02-03] MEDS: INSULIN GLARGINE,HUM 300 UNITS/3 ML CARTRIDGE SQ SCH (09:47)
--- NOTE | 2019-02-03 11:40 | NUR ---
Obtained and received discharge orders from Dr. Simpson. Orders carried out. Pt and R/P aware of planned D/C. Pt. to d/c to [facility]: [facility] this afternoon with p/u time of 1500 from [facility] per .
[2019-02-03] MEDS: INSULIN REGULAR, HUMAN 300 UNIT/3 ML VIAL SQ PRN (12:16)
--- NOTE | 2019-02-03 15:10 | NUR ---
Discharge Note: Pt. remained stable at this time. Dr. Simpson deemed pt. safe for discharge today 02/03/2019. Routine round with pt; pt. remain cooperative, A/OX3. Lungs sounds clear to auscultation bilaterally, no respiratory distress. Heart with regular rate and rhythm, no murmur, rub or gallop. Abdomen soft,non-tender, bowel sounds present in all 4 quadrants. Conjunctivae clear, PERRLA. Pt. served with lunch as ordered and tolerated well. Voiding well using the bathroom. All belongings are prepared. Inventory done all accountable for. Skin care rendered, no new skin condition identified. Skin assessment performed and photos taken then placed in pt. chart. Instructed pt. to follow up with PCP upon discharge. Pt. teaching provided which include but not limited to meds administration, risk of fall, and skin mgt. Gave pt. information regarding returning to community. Discharge paper signed by pt. witnessed by this engineering writer. Original RX given and included in packet. Provided pt. discharge packet. No further questions from the pt. about the discharge instructions, Pt. verbalized clear understanding. [facility]55 [facility] on-site, provided report to receiving staff. D/c safely on [facility]. Provided pt. with bedside commode. Pt. brother aware of discharge per CM. Pt. left the facility at 1510 and d/c to [facility].
== END 2019-02-03 15:10 | disposition home health service (06) | DRG 949 ==
PROVIDERS: ADMIT Physical Medicine & Rehabilitation Pain Medicine; ATTEND Physical Medicine & Rehabilitation Pain Medicine
PROC: 0HBRXZZ Excision of Toe Nail, External Approach (ICD-10-PCS; principal; 2019-01-21)
DX: S06.9X9D Unspecified intracranial injury with loss of consciousness of unspecified duration, subsequent encounter (principal); G92 Toxic encephalopathy; A41.9 Sepsis, unspecified organism; N17.0 Acute kidney failure with tubular necrosis; J69.0 Pneumonitis due to inhalation of food and vomit; D68.59 Other primary thrombophilia; E11.22 Type 2 diabetes mellitus with diabetic chronic kidney disease; E11.65 Type 2 diabetes mellitus with hyperglycemia; I12.9 Hypertensive chronic kidney disease with stage 1 through stage 4 chronic kidney disease, or unspecified chronic kidney disease; N18.9 Chronic kidney disease, unspecified; S01.111D Laceration without foreign body of right eyelid and periocular area, subsequent encounter; S22.32XD Fracture of one rib, left side, subsequent encounter for fracture with routine healing; R29.6 Repeated falls; S50.01XD Contusion of right elbow, subsequent encounter; W17.89XD Other fall from one level to another, subsequent encounter; M19.90 Unspecified osteoarthritis, unspecified site; E78.5 Hyperlipidemia, unspecified; F03.90 Unspecified dementia, unspecified severity, without behavioral disturbance, psychotic disturbance, mood disturbance, and anxiety; Z86.73 Personal history of transient ischemic attack (TIA), and cerebral infarction without residual deficits; B35.1 Tinea unguium; E11.40 Type 2 diabetes mellitus with diabetic neuropathy, unspecified; F32.9 Major depressive disorder, single episode, unspecified; M20.42 Other hammer toe(s) (acquired), left foot; M20.41 Other hammer toe(s) (acquired), right foot; M21.372 Foot drop, left foot; R27.0 Ataxia, unspecified; N40.1 Benign prostatic hyperplasia with lower urinary tract symptoms; R33.8 Other retention of urine
CPT/HCPCS: 36415; 70030-TC; 83735; 84100; 85025; A4663; J1815; J2543; J3010; J3370; J7050; J7060; Q0162

== ENCOUNTER 2019-02-06 13:58 | Inpatient (IN) | payer MEDICARE ==
[~2019-02-06] VITALS: Ht 170.2 cm; Wt 68.0 kg
[~2019-02-06 13:58] MED LIST changes: -ACET600C5 PO; -BLOOD SUGAR CHECK; -GLUC1KIT SQ; -HYDR453.3 TP; -INSU100I28 SQ; +LACT1CAP57 PO; -LIDOCAINE PATCH; -METO-295 PO; -MIRT15TA7 PO; -NOVOLOG SQ; +ONDA4TAB5 PO; +PIPE2.2512 IV; +ZINC113P3 TP; +[UNRECOGNIZED DRUG - REMARK]
[2019-02-06] MEDS ORDERED: INSU100V28 SQ (14:11)
[2019-02-06] MEDS ORDERED: GLIP5TAB13 PO (14:11)
[2019-02-06] MEDS ORDERED: MIRT7.5T10 PO (14:11)
[2019-02-06] MEDS ORDERED: INSULIN REGULAR, HUMAN 300 UNIT/3 ML VIAL IV ONE (14:15)
[2019-02-06] MEDS ORDERED: IV NORMAL SALINE 1000 ML BAG IV ONE ×2 (14:15→15:15)
[2019-02-06 14:42] LABS: BASOPHILS # (AUTO) 0.1 K/uL (0.0-8.0); BASOPHILS % (AUTO) 0.8 % (0.0-2.0); EOSINOPHILS # (AUTO) 0.1 K/uL (0.0-0.7); HEMATOCRIT 34.3 % (36.7-47.1); HEMOGLOBIN 11.2 g/dL (12.5-16.3); LYMPHOCYTES # (AUTO) 1.6 K/uL (20.0-40.0); LYMPHOCYTES % (AUTO) 13.9 % (20.5-51.5); MEAN CORPUSCULAR HEMOGLOBIN 30.5 uug (23.8-33.4); MEAN CORPUSCULAR HGB CONC 33 g/dL (32.5-36.3); MEAN CORPUSCULAR VOLUME 93.3 fL (73.0-96.2); MONOCYTES % (AUTO) 8.8 % (0.0-11.0); NEUTROPHILS # (AUTO) 8.6 K/uL (1.8-8.9); NEUTROPHILS % (AUTO) 75.5 % (38.5-71.5); PLATELET COUNT (AUTO) 252 K/uL (152-348); RED BLOOD CELL COUNT(AUTO) 3.68 MIL/uL (4.06-5.63); WHITE BLOOD COUNT (AUTO) 11.4 K/uL (3.6-10.2)
[2019-02-06] MEDS ORDERED: INSULIN REGULAR, HUMAN 300 UNIT/3 ML VIAL ONE (14:42)
[2019-02-06 14:51] LABS: CREATININE 2.3 mg/dL (0.6-1.3); POTASSIUM 4.5 mmol/L (3.5-5.1)
[2019-02-06 15:07] LABS: BILIRUBIN,DIRECT 0.2 mg/dL (0.0-0.2); BILIRUBIN,TOTAL 0.8 mg/dL (0.1-1.0)
[2019-02-06 15:40] LABS: *BILIRUBIN,URIN NEGATIVE (NEGATIVE); *BLOOD, URINE NEGATIVE (NEGATIVE); *CLARITY,URINE CLEAR (CLEAR); *COLOR,URINE YELLOW (YELLOW); *KETONES,URINE TRACE (NEGATIVE); *UROBILINOGEN,URINE 0.2 E.U./dl (NORMAL); LEUKOCYTE ESTERASE ,URINE NEGATIVE (NEGATIVE); NITRITE, URINE NEGATIVE (NEGATIVE); PH,URINE 5.5 (5.0-8.0); UGLUCOSE 2+ (NEGATIVE)
[2019-02-06 15:50] LABS: MUCUS,URINE FEW /LPF (0-FEW); SQUAMOUS EPITHELIAL CELL,UR FEW /HPF (NONE SEEN); WBC,URINE 0-3 /HPF (0-3)
[2019-02-06] MEDS ORDERED: LEVOFLOXACIN 750MG/D5W 150 ML IV ONE (16:15)
[2019-02-06] MEDS ORDERED: LEVOFLOXACIN 750 MG/D5W 150 ML PIGGYBACK IV ONE (16:15)
[2019-02-06] MEDS ORDERED: MAGNESIUM HYDROXIDE 30 ML LIQUID UDC PO PRN (17:00)
[2019-02-06] MEDS ORDERED: ONDANSETRON 4 MG/2 ML VIAL IV PRN (17:00)
[2019-02-06] MEDS ORDERED: Z GUARD REMEDY PASTE 57 GM TUBE TOP PRN (17:00)
[2019-02-06] MEDS ORDERED: DEXTROSE 50% 50 ML DISP.SYRIN IV PRN (17:00)
[2019-02-06] MEDS ORDERED: ACETAMINOPHEN 325 MG TABLET PO PRN ×2 (17:00)
[2019-02-06 20:19] VITALS: BP 134/62
[2019-02-06] MEDS: BLOOD SUGAR DIAGNOSTIC 1 EACH STRIP VI SCH (20:55)
[2019-02-06] MEDS: IV NS 1000 ML 1,000 ML IV PRN (20:59)
[2019-02-06] MEDS ORDERED: Medication Not On Formulary EA (Mirtazapine 7.5 MG) PO SCH (21:00)
[2019-02-06] MEDS: MIRTAZAPINE 15 MG TABLET PO SCH (21:07)
[2019-02-06] MEDS: TAMSULOSIN HCL 0.4 MG CAP.SR.24H PO SCH (21:08)
[2019-02-06] MEDS: DOCUSATE SODIUM 100 MG CAPSULE PO SCH (21:08)
[2019-02-06] MEDS: INSULIN REGULAR, HUMAN 300 UNIT/3 ML VIAL SQ PRN (21:10)
[2019-02-07] MEDS: BLOOD SUGAR DIAGNOSTIC 1 EACH STRIP VI SCH ×6 (00:37→20:45)
[2019-02-07] MEDS: INSULIN REGULAR, HUMAN 300 UNIT/3 ML VIAL SQ PRN ×4 (00:42→20:53)
[2019-02-07 06:18] VITALS: BP 145/48
[2019-02-07] MEDS: PANTOPRAZOLE SODIUM 40 MG TABLET.DR PO SCH (06:31)
[2019-02-07 06:47] LABS: BASOPHILS # (AUTO) 0.1 K/uL (0.0-8.0); EOSINOPHILS # (AUTO) 0.1 K/uL (0.0-0.7); HEMOGLOBIN 11.1 g/dL (12.5-16.3); LYMPHOCYTES # (AUTO) 1.1 K/uL (20.0-40.0)
[2019-02-07 06:53] LABS: CREATININE 1.8 mg/dL (0.6-1.3); PHOSPHOROUS 2.8 mg/dL (2.5-4.9)
[2019-02-07 07:02] LABS: THYROID STIMULATING HORMONE 1.221 mIU/mL (0.358-3.740)
[2019-02-07 07:09] LABS: BASOPHILS % (AUTO) 0.8 % (0.0-2.0); EOSINOPHILS % (AUTO) 1.6 % (0.0-7.0); HEMATOCRIT 33.1 % (36.7-47.1); LYMPHOCYTES % (AUTO) 15.9 % (20.5-51.5); MEAN CORPUSCULAR HEMOGLOBIN 30.7 uug (23.8-33.4); MEAN CORPUSCULAR HGB CONC 33 g/dL (32.5-36.3); MONOCYTES # (AUTO) 0.7 K/uL (2.0-10.0); MONOCYTES % (AUTO) 10.3 % (0.0-11.0); NEUTROPHILS % (AUTO) 71.4 % (38.5-71.5); PLATELET COUNT (AUTO) 250 K/uL (152-348)
[2019-02-07] MEDS: AMLODIPINE 10 MG TABLET PO SCH (08:37)
[2019-02-07] MEDS ORDERED: PANTOPRAZOLE SODIUM 40 MG TABLET.DR PO SCH (09:00)
[2019-02-07] MEDS ORDERED: ATORVASTATIN 10 MG TABLET PO SCH (09:00)
[2019-02-07] MEDS: IV NS 1000 ML 1,000 ML IV PRN (09:49)
[2019-02-07] MEDS ORDERED: INSULIN REGULAR, HUMAN 300 UNITS/3 ML VIAL SQ ONE (11:15)
[2019-02-07] MEDS ORDERED: INSULIN LISPRO 300 UNIT/3 ML VIAL SQ ONE (11:30)
[2019-02-07 11:47] VITALS: BP 122/56
[2019-02-07 15:51] VITALS: BP 125/78
[2019-02-07] MEDS: LEVOFLOXACIN 250MG /D5W 250 MG in PREMIXED 1 EACH IV SCH (16:40)
[2019-02-07 20:05] VITALS: BP 135/51
[2019-02-07] MEDS: DOCUSATE SODIUM 100 MG CAPSULE PO SCH (21:03)
[2019-02-07] MEDS: TAMSULOSIN HCL 0.4 MG CAP.SR.24H PO SCH (21:03)
[2019-02-07] MEDS: MIRTAZAPINE 15 MG TABLET PO SCH (21:04)
[2019-02-07] MEDS: ATORVASTATIN 10 MG TABLET PO SCH (21:04)
[2019-02-08] MEDS: BLOOD SUGAR DIAGNOSTIC 1 EACH STRIP VI SCH ×6 (00:25→21:17)
[2019-02-08] MEDS: INSULIN REGULAR, HUMAN 300 UNIT/3 ML VIAL SQ PRN ×2 (00:27→08:36)
[2019-02-08] MEDS: IV NS 1000 ML 1,000 ML IV PRN ×2 (00:35→21:26)
[2019-02-08] MEDS: PANTOPRAZOLE SODIUM 40 MG TABLET.DR PO SCH (06:45)
[2019-02-08 06:47] LABS: CREATININE 1.6 mg/dL (0.6-1.3); MAGNESIUM 1.7 mg/dL (1.8-2.4); PHOSPHOROUS 2.4 mg/dL (2.5-4.9); POTASSIUM 4.2 mmol/L (3.5-5.1)
[2019-02-08 07:07] LABS: BASOPHILS # (AUTO) 0.1 K/uL (0.0-8.0); BASOPHILS % (AUTO) 0.7 % (0.0-2.0); EOSINOPHILS # (AUTO) 0.3 K/uL (0.0-0.7); EOSINOPHILS % (AUTO) 3.7 % (0.0-7.0); HEMATOCRIT 32.1 % (36.7-47.1); HEMOGLOBIN 10.9 g/dL (12.5-16.3); LYMPHOCYTES # (AUTO) 1.9 K/uL (20.0-40.0); LYMPHOCYTES % (AUTO) 25.8 % (20.5-51.5); MEAN CORPUSCULAR HEMOGLOBIN 31.2 uug (23.8-33.4); MEAN CORPUSCULAR HGB CONC 34 g/dL (32.5-36.3); MEAN CORPUSCULAR VOLUME 92.3 fL (73.0-96.2); MONOCYTES # (AUTO) 0.9 K/uL (2.0-10.0); MONOCYTES % (AUTO) 12.2 % (0.0-11.0); NEUTROPHILS # (AUTO) 4.2 K/uL (1.8-8.9); NEUTROPHILS % (AUTO) 57.6 % (38.5-71.5); PLATELET COUNT (AUTO) 212 K/uL (152-348); RED BLOOD CELL COUNT(AUTO) 3.48 MIL/uL (4.06-5.63); WHITE BLOOD COUNT (AUTO) 7.3 K/uL (3.6-10.2)
[2019-02-08 07:12] VITALS: BP 132/65
[2019-02-08 08:30] VITALS: BP 141/60
[2019-02-08] MEDS: AMLODIPINE 10 MG TABLET PO SCH (08:33)
[2019-02-08] MEDS ORDERED: INSULIN REGULAR, HUMAN 300 UNITS/3 ML VIAL SQ PRN (11:30)
[2019-02-08] MEDS ORDERED: DEXTROSE 50% 50 ML DISP.SYRIN IV PRN (11:30)
[2019-02-08] MEDS ORDERED: INSULIN REGULAR, HUMAN 300 UNIT/3 ML VIAL SQ PRN (11:30)
[2019-02-08 11:48] VITALS: BP 134/60
[2019-02-08] MEDS ORDERED: MAGNESIUM OXIDE 400 MG TABLET PO ONE ×2 (12:00)
[2019-02-08 16:00] VITALS: BP 114/53
[2019-02-08] MEDS ORDERED: NEUTRA PHOS PACKET PO ONE (16:00)
[2019-02-08] MEDS: LEVOFLOXACIN 250MG /D5W 250 MG in PREMIXED 1 EACH IV SCH (17:12)
[2019-02-08 20:40] VITALS: BP 129/48
[2019-02-08] MEDS: DOCUSATE SODIUM 100 MG CAPSULE PO SCH (21:16)
[2019-02-08] MEDS: ATORVASTATIN 10 MG TABLET PO SCH (21:16)
[2019-02-08] MEDS: MIRTAZAPINE 15 MG TABLET PO SCH (21:16)
[2019-02-08] MEDS: TAMSULOSIN HCL 0.4 MG CAP.SR.24H PO SCH (21:16)
[2019-02-08] MEDS: INSULIN GLARGINE,HUM 300 UNITS/3 ML CARTRIDGE SQ SCH (21:18)
[2019-02-09 05:55] VITALS: BP 129/57
[2019-02-09] MEDS: PANTOPRAZOLE SODIUM 40 MG TABLET.DR PO SCH (06:22)
[2019-02-09] MEDS: BLOOD SUGAR DIAGNOSTIC 1 EACH STRIP VI SCH ×5 (06:50→16:19)
[2019-02-09 06:55] LABS: BASOPHILS # (AUTO) 0.1 K/uL (0.0-8.0); BASOPHILS % (AUTO) 0.8 % (0.0-2.0); EOSINOPHILS # (AUTO) 0.3 K/uL (0.0-0.7); HEMATOCRIT 33.4 % (36.7-47.1); HEMOGLOBIN 11.2 g/dL (12.5-16.3); LYMPHOCYTES # (AUTO) 1.8 K/uL (20.0-40.0); LYMPHOCYTES % (AUTO) 27.7 % (20.5-51.5); MEAN CORPUSCULAR HEMOGLOBIN 30.5 uug (23.8-33.4); MEAN CORPUSCULAR HGB CONC 34 g/dL (32.5-36.3); MEAN CORPUSCULAR VOLUME 90.9 fL (73.0-96.2); MONOCYTES # (AUTO) 0.9 K/uL (2.0-10.0); MONOCYTES % (AUTO) 13.1 % (0.0-11.0); NEUTROPHILS # (AUTO) 3.6 K/uL (1.8-8.9); NEUTROPHILS % (AUTO) 54.4 % (38.5-71.5); PLATELET COUNT (AUTO) 217 K/uL (152-348); RED BLOOD CELL COUNT(AUTO) 3.67 MIL/uL (4.06-5.63); WHITE BLOOD COUNT (AUTO) 6.5 K/uL (3.6-10.2)
[2019-02-09 07:50] LABS: CREATININE 1.5 mg/dL (0.6-1.3)
[2019-02-09 08:00] LABS: MAGNESIUM 1.8 mg/dL (1.8-2.4); PHOSPHOROUS 2.6 mg/dL (2.5-4.9)
[2019-02-09] MEDS: AMLODIPINE 10 MG TABLET PO SCH (10:04)
[2019-02-09 11:24] VITALS: BP 131/56
[2019-02-09] MEDS: INSULIN GLARGINE,HUM 300 UNITS/3 ML CARTRIDGE SQ SCH (11:56)
[2019-02-09] MEDS ORDERED: INSULIN REGULAR, HUMAN 300 UNIT/3 ML VIAL SQ PRN (12:15)
[2019-02-09] MEDS ORDERED: DEXTROSE 50% 50 ML DISP.SYRIN IV PRN (12:15)
[2019-02-09] MEDS ORDERED: Insulin Glargine,Hum SQ (12:17)
[2019-02-09] MEDS ORDERED: LEVO250T59 PO (12:17)
[2019-02-09] MEDS: IV NS 1000 ML 1,000 ML IV PRN (14:03)
[2019-02-09 15:20] VITALS: BP 134/65
== END 2019-02-09 16:00 | disposition home health service (06) | DRG 871 ==
LOC: ER 13:58 → MEDSURG3 19:52
PROVIDERS: ADMIT Registered Nurse; ATTEND Registered Nurse
DX: A41.9 Sepsis, unspecified organism (principal); N17.0 Acute kidney failure with tubular necrosis; E87.2 Acidosis; E87.1 Hypo-osmolality and hyponatremia; E11.65 Type 2 diabetes mellitus with hyperglycemia; Z79.4 Long term (current) use of insulin; N40.0 Benign prostatic hyperplasia without lower urinary tract symptoms; E86.0 Dehydration; D63.1 Anemia in chronic kidney disease; I12.9 Hypertensive chronic kidney disease with stage 1 through stage 4 chronic kidney disease, or unspecified chronic kidney disease; N18.9 Chronic kidney disease, unspecified; E11.22 Type 2 diabetes mellitus with diabetic chronic kidney disease; E78.5 Hyperlipidemia, unspecified; F32.9 Major depressive disorder, single episode, unspecified; K21.9 Gastro-esophageal reflux disease without esophagitis; E83.42 Hypomagnesemia; E83.39 Other disorders of phosphorus metabolism
CPT/HCPCS: 36415; 70030-TC; 71045; 83605; 83735; 84100; 84443; 85025; 85730; 87040; 87077; 87086; 93005; A4663; G0378; J1815; J1956; J3490; J7030

== ENCOUNTER 2019-05-09 10:44 | Inpatient (IN) | payer MEDICARE ==
[~2019-05-09] VITALS: Ht 171.4 cm; Wt 68.0 kg
[~2019-05-09 10:44] MED LIST changes: -BISA10SU95 RC; +INSU100V28 SQ; -INSU3INS6 SQ; +Insulin Glargine,Hum SQ; -LACT1CAP57 PO; +LEVO250T59 PO; +MIRT7.5T10 PO; -NA P133E8 RC; -ONDA4TAB5 PO; -PIPE2.2512 IV; -POLY255P19 PO; -ZINC113P3 TP; -[UNRECOGNIZED DRUG - REMARK]
[2019-05-09] MEDS ORDERED: INSULIN REGULAR, HUMAN 300 UNIT/3 ML VIAL IV ONE (11:00)
[2019-05-09] MEDS ORDERED: IV NORMAL SALINE 1000 ML BAG IV ONE (11:00)
[2019-05-09] MEDS ORDERED: INSULIN REGULAR, HUMAN 300 UNIT/3 ML VIAL ONE (11:05)
[2019-05-09 11:16] LABS: BASOPHILS # (AUTO) 0.1 K/uL (0.0-8.0); EOSINOPHILS # (AUTO) 0.3 K/uL (0.0-0.7); EOSINOPHILS % (AUTO) 3.3 % (0.0-7.0); HEMOGLOBIN 12.2 g/dL (12.5-16.3); LYMPHOCYTES # (AUTO) 1.4 K/uL (20.0-40.0); LYMPHOCYTES % (AUTO) 16.2 % (20.5-51.5); MEAN CORPUSCULAR HEMOGLOBIN 29.5 uug (23.8-33.4); MEAN CORPUSCULAR HGB CONC 32 g/dL (32.5-36.3); MEAN CORPUSCULAR VOLUME 91.7 fL (73.0-96.2); MONOCYTES # (AUTO) 0.8 K/uL (2.0-10.0); MONOCYTES % (AUTO) 9.1 % (0.0-11.0); NEUTROPHILS # (AUTO) 6.2 K/uL (1.8-8.9); NEUTROPHILS % (AUTO) 70.4 % (38.5-71.5); PLATELET COUNT (AUTO) 210 K/uL (152-348); RED BLOOD CELL COUNT(AUTO) 4.15 MIL/uL (4.06-5.63); WHITE BLOOD COUNT (AUTO) 8.8 K/uL (3.6-10.2)
[2019-05-09 11:33] LABS: BILIRUBIN,DIRECT 0.2 mg/dL (0.0-0.2); BILIRUBIN,TOTAL 0.8 mg/dL (0.2-1.0); CREATININE 2.3 mg/dL (0.6-1.3); POTASSIUM 4.7 mmol/L (3.5-5.1); TOTAL PROTEIN, SERUM 7.5 g/dL (6.4-8.2)
[2019-05-09] MEDS ORDERED: [UNRECOGNIZED DRUG - CODE] (11:46)
[2019-05-09] MEDS ORDERED: METO-295 PO (11:46)
[2019-05-09] MEDS ORDERED: INSU100C SQ (11:46)
[2019-05-09] MEDS ORDERED: INSU100V39 SQ (11:46)
[2019-05-09] MEDS ORDERED: [UNRECOGNIZED DRUG - CODE] TP (11:46)
[2019-05-09] MEDS ORDERED: INSU3INS6 SQ (11:46)
[2019-05-09] MEDS ORDERED: HYDR28CR TP (11:46)
[2019-05-09 12:23] LABS: *BILIRUBIN,URIN NEGATIVE (NEGATIVE); *BLOOD, URINE NEGATIVE (NEGATIVE); *CLARITY,URINE CLEAR (CLEAR); *COLOR,URINE YELLOW (YELLOW); *KETONES,URINE NEGATIVE (NEGATIVE); *UROBILINOGEN,URINE 0.2 E.U./dl (NORMAL); LEUKOCYTE ESTERASE ,URINE NEGATIVE (NEGATIVE); NITRITE, URINE NEGATIVE (NEGATIVE); PH,URINE 5.5 (5.0-8.0)
[2019-05-09 12:30] LABS: UGLUCOSE 2+ (NEGATIVE)
[2019-05-09 12:39] LABS: BACTERIA,URINE NONE SEEN /HPF (NONE SEEN); RBC,URINE NONE SEEN /HPF (0-3); SQUAMOUS EPITHELIAL CELL,UR FEW /HPF (NONE SEEN); WBC,URINE 0-3 /HPF (0-3)
--- NOTE | 2019-05-09 13:54 | NUR ---
Lunch tray provided w/ 1800 ada, pt ate w/ good appetite.
[2019-05-09 15:54] VITALS: BP 158/59
[2019-05-09] MEDS ORDERED: ACETAMINOPHEN 325 MG TABLET PO PRN (16:45)
[2019-05-09] MEDS ORDERED: ONDANSETRON 4 MG/2 ML VIAL IV PRN (17:00)
[2019-05-09] MEDS ORDERED: HYDROCODONE/APAP 5-325MG TABLET PO PRN (17:00)
[2019-05-09] MEDS ORDERED: DEXTROSE 50% 50 ML DISP.SYRIN IV PRN (17:00)
[2019-05-09] MEDS ORDERED: TEMAZEPAM 15 MG CAPSULE PO PRN (17:00)
[2019-05-09] MEDS ORDERED: PRAMOXINE 1% TP SCH (17:00)
[2019-05-09] MEDS ORDERED: INSULIN LISPRO 1000 UNITS/10 ML VIAL(HUMALOG) SQ SCH (17:00)
[2019-05-09] MEDS: INSULIN REGULAR, HUMAN 300 UNIT/3 ML VIAL SQ PRN (18:32)
[2019-05-09 20:00] VITALS: BP 116/52
[2019-05-09] MEDS: IV 1/2NS 1000 ML 1,000 ML IV PRN (20:00)
--- NOTE | 2019-05-09 20:00 | NUR ---
PATIENT AWAKE IN BED. A/O X3. DENIES PAIN OR DISCOMFORT. NO RESP. DISTRESS NOTED. VSS. CALL LIGHT IN REACH. ALL NEEDS ATTENDED. WILL CONTINUE TO MONITOR AND ASSESS.
[2019-05-09] MEDS: DOCUSATE SODIUM 100 MG CAPSULE PO SCH (20:49)
[2019-05-09] MEDS: BLOOD SUGAR DIAGNOSTIC 1 EACH STRIP VI SCH (20:49)
[2019-05-09] MEDS: ATORVASTATIN 10 MG TABLET PO SCH (20:49)
[2019-05-09] MEDS: MIRTAZAPINE 15 MG TABLET PO SCH (20:49)
[2019-05-09] MEDS: TAMSULOSIN HCL 0.4 MG CAP.SR.24H PO SCH (20:49)
[2019-05-09] MEDS: INSULIN REGULAR, HUMAN 300 UNITS/3 ML VIAL SQ PRN (20:51)
[2019-05-09] MEDS: INSULIN GLARGINE,HUM 300 UNITS/3 ML CARTRIDGE SQ SCH (20:52)
[2019-05-09] MEDS ORDERED: DOCUSATE SODIUM 250 MG CAPSULE PO SCH (21:00)
--- NOTE | 2019-05-10 05:42 | NUR ---
PATIENT ASLEEP IN BED. SLEPT WELL THROUGHOUT THE NIGHT. IVF INFUSING WELL TO LEFT AC. CALL LIGHT IN REACH. ALL NEEDS ATTENDED. WILL CONTINUE TO MONITOR AND ASSESS.
[2019-05-10 05:56] VITALS: BP 122/52
[2019-05-10] MEDS: PANTOPRAZOLE SODIUM 40 MG TABLET.DR PO SCH (06:08)
[2019-05-10] MEDS: BLOOD SUGAR DIAGNOSTIC 1 EACH STRIP VI SCH ×6 (06:29→20:37)
[2019-05-10 06:49] LABS: BASOPHILS % (AUTO) 0.7 % (0.0-2.0); EOSINOPHILS # (AUTO) 0.3 K/uL (0.0-0.7); EOSINOPHILS % (AUTO) 4.5 % (0.0-7.0); HEMATOCRIT 37.1 % (36.7-47.1); HEMOGLOBIN 12.4 g/dL (12.5-16.3); LYMPHOCYTES # (AUTO) 1.7 K/uL (20.0-40.0); LYMPHOCYTES % (AUTO) 23.6 % (20.5-51.5); MEAN CORPUSCULAR HEMOGLOBIN 30.1 uug (23.8-33.4); MEAN CORPUSCULAR HGB CONC 33 g/dL (32.5-36.3); MEAN CORPUSCULAR VOLUME 90.2 fL (73.0-96.2); MONOCYTES # (AUTO) 0.9 K/uL (2.0-10.0); MONOCYTES % (AUTO) 12.7 % (0.0-11.0); NEUTROPHILS # (AUTO) 4.2 K/uL (1.8-8.9); NEUTROPHILS % (AUTO) 58.5 % (38.5-71.5); PLATELET COUNT (AUTO) 210 K/uL (152-348); RED BLOOD CELL COUNT(AUTO) 4.12 MIL/uL (4.06-5.63); WHITE BLOOD COUNT (AUTO) 7.1 K/uL (3.6-10.2)
[2019-05-10 07:10] LABS: BILIRUBIN,TOTAL 0.7 mg/dL (0.2-1.0); CREATININE 1.9 mg/dL (0.6-1.3); PHOSPHOROUS 4.4 mg/dL (2.5-4.9); POTASSIUM 4.1 mmol/L (3.5-5.1); TOTAL PROTEIN, SERUM 6.7 g/dL (6.4-8.2)
[2019-05-10 07:16] LABS: THYROID STIMULATING HORMONE 2.837 mIU/mL (0.358-3.740)
[2019-05-10] MEDS: INSULIN REGULAR, HUMAN 300 UNITS/3 ML VIAL SQ SCH ×3 (08:52→17:00)
[2019-05-10] MEDS: INSULIN GLARGINE,HUM 300 UNITS/3 ML CARTRIDGE SQ SCH ×2 (09:21→20:37)
[2019-05-10 11:32] VITALS: BP 149/70
[2019-05-10] MEDS: AMLODIPINE 10 MG TABLET PO SCH (11:46)
[2019-05-10] MEDS: INSULIN REGULAR, HUMAN 300 UNIT/3 ML VIAL SQ PRN (11:51)
[2019-05-10 15:38] VITALS: BP 119/78
--- NOTE | 2019-05-10 16:20 | NUR ---
1620--ACCU CHEK = 34. PT. ALERT AND ORIENTED REFUSES IVP PROTOCOL--STATES I HAV HAD THIS BEFORE. 2 CUPS OF SUGARED OJ GIVEN TO PT. STATES FEELS A LITTLE WEAK OTHERWISE OK. 1640--ACCU CHEK = 39 PT. REMAINS ALERT AND ORIENTED. 2 MORE CUPS OF SUGARED OJ GIVEN PLUS A YOGHURT--[THE PT'S USUAL TX FOR LOW BS] 1650--ACCU CHEK=48. PT. REMAINS ASYMPTOMATIC. A AND O X4. 1 ADDITIONAL CUP OF OJ GIVEN. 1700--ACCU CHEK = 91. PT. ALERT ASYMPTOMATIC EATING DINNER. NO INSULIN GIVEN. DR. LANDA NOTIFIED OF ALL OF THE AABOVE----AWAITING CALL BACK. ALSO NOTIFIED OF THE CURRENT INSULIN SCHEDULE AND COVERAGE ORDERS.
[2019-05-10] MEDS: IV 1/2NS 1000 ML 1,000 ML IV PRN (16:26)
[2019-05-10 19:30] VITALS: BP 132/59
--- NOTE | 2019-05-10 20:00 | NUR ---
PATIENT ALERT AND ORIENTED X 4. IV IN THE LEFT AC 20 G RUNNING NS AT 70 ML/hr. NIGHT TIME BS IS 195. WILL COVER WITH BOTH LANTUS AND REGULAR. PATIENT FOR DISCHARGE TOMORROW. NO C/O PAIN OR DISCOMFORT AT THIS TIME. WILL CONTINUE TO MONITOR.
[2019-05-10] MEDS: TAMSULOSIN HCL 0.4 MG CAP.SR.24H PO SCH (20:36)
[2019-05-10] MEDS: MIRTAZAPINE 15 MG TABLET PO SCH (20:36)
[2019-05-10] MEDS: DOCUSATE SODIUM 100 MG CAPSULE PO SCH (20:36)
[2019-05-10] MEDS: ATORVASTATIN 10 MG TABLET PO SCH (20:36)
[2019-05-10] MEDS: INSULIN REGULAR, HUMAN 300 UNITS/3 ML VIAL SQ PRN (20:39)
[2019-05-11 05:00] VITALS: BP 152/61
[2019-05-11] MEDS: PANTOPRAZOLE SODIUM 40 MG TABLET.DR PO SCH (06:30)
[2019-05-11] MEDS: BLOOD SUGAR DIAGNOSTIC 1 EACH STRIP VI SCH ×2 (06:30→12:24)
[2019-05-11 07:11] LABS: BASOPHILS % (AUTO) 0.6 % (0.0-2.0); EOSINOPHILS # (AUTO) 0.4 K/uL (0.0-0.7); EOSINOPHILS % (AUTO) 5.9 % (0.0-7.0); HEMOGLOBIN 12.1 g/dL (12.5-16.3); LYMPHOCYTES # (AUTO) 1.8 K/uL (20.0-40.0); LYMPHOCYTES % (AUTO) 25.3 % (20.5-51.5); MEAN CORPUSCULAR HEMOGLOBIN 29.5 uug (23.8-33.4); MEAN CORPUSCULAR HGB CONC 34 g/dL (32.5-36.3); MEAN CORPUSCULAR VOLUME 88.3 fL (73.0-96.2); MONOCYTES # (AUTO) 0.8 K/uL (2.0-10.0); MONOCYTES % (AUTO) 11.6 % (0.0-11.0); NEUTROPHILS # (AUTO) 3.9 K/uL (1.8-8.9); NEUTROPHILS % (AUTO) 56.6 % (38.5-71.5); PLATELET COUNT (AUTO) 211 K/uL (152-348); RED BLOOD CELL COUNT(AUTO) 4.08 MIL/uL (4.06-5.63)
[2019-05-11 07:24] LABS: CREATININE 1.7 mg/dL (0.6-1.3); MAGNESIUM 1.8 mg/dL (1.8-2.4); PHOSPHOROUS 3.6 mg/dL (2.5-4.9); POTASSIUM 4.7 mmol/L (3.5-5.1)
[2019-05-11] MEDS: INSULIN REGULAR, HUMAN 300 UNITS/3 ML VIAL SQ SCH ×2 (08:50→13:11)
[2019-05-11] MEDS: INSULIN GLARGINE,HUM 300 UNITS/3 ML CARTRIDGE SQ SCH (08:54)
[2019-05-11] MEDS: IV 1/2NS 1000 ML 1,000 ML IV PRN (09:07)
[2019-05-11] MEDS: AMLODIPINE 10 MG TABLET PO SCH (09:24)
[2019-05-11 12:21] VITALS: BP 167/70
--- NOTE | 2019-05-11 16:00 | NUR ---
patient prepared for discharge. to be discharged to assisted living. jose liz. keerthi asencio. discharged to facility [facility]
[2019-05-11 16:10] VITALS: BP 156/72
== END 2019-05-11 16:25 | DRG 637 ==
LOC: ER 10:44 → MEDSURG3 13:56 → MED 05-11 01:11 → MEDSURG3 05-11 01:14
PROVIDERS: ADMIT Internal Medicine; ATTEND Internal Medicine
DX: E10.65 Type 1 diabetes mellitus with hyperglycemia (principal); N17.0 Acute kidney failure with tubular necrosis; G93.41 Metabolic encephalopathy; D68.59 Other primary thrombophilia; E87.1 Hypo-osmolality and hyponatremia; E10.22 Type 1 diabetes mellitus with diabetic chronic kidney disease; I12.9 Hypertensive chronic kidney disease with stage 1 through stage 4 chronic kidney disease, or unspecified chronic kidney disease; N18.9 Chronic kidney disease, unspecified; Z79.4 Long term (current) use of insulin; M21.372 Foot drop, left foot; E78.5 Hyperlipidemia, unspecified; D63.1 Anemia in chronic kidney disease; Z74.09 Other reduced mobility; N40.0 Benign prostatic hyperplasia without lower urinary tract symptoms; J84.10 Pulmonary fibrosis, unspecified; I99.8 Other disorder of circulatory system; I70.0 Atherosclerosis of aorta; I69.90 Unspecified sequelae of unspecified cerebrovascular disease; F01.50 Vascular dementia, unspecified severity, without behavioral disturbance, psychotic disturbance, mood disturbance, and anxiety; E86.0 Dehydration; F32.9 Major depressive disorder, single episode, unspecified
CPT/HCPCS: 36415; 70030-TC; 71045; 83735; 84100; 84443; 85025; 85730; 87040; 87086; 93005; A4663; G0378; J1815; J3490; J7030

== ENCOUNTER 2019-08-08 12:50 | Inpatient (IN) | payer MEDICARE ==
[2019-08-08] VITALS (8 sets, daily range): BP systolic 109–148; BP diastolic 51–72
[~2019-08-08] VITALS: Ht 182.9 cm; Wt 52.7 kg
[~2019-08-08 12:50] MED LIST changes: +HYDR28CR TP; +INSU100C SQ; -INSU100V28 SQ; +INSU100V39 SQ; +INSU3INS6 SQ; -Insulin Glargine,Hum SQ; -LEVO250T59 PO; +METO-295 PO; +[UNRECOGNIZED DRUG - CODE]; +[UNRECOGNIZED DRUG - CODE] TP
[2019-08-08] MEDS ORDERED: IV NORMAL SALINE 1000 ML BAG IV ONE ×2 (13:00→14:30)
--- NOTE | 2019-08-08 13:00 | NUR ---
Dr quigley at the bedside for MSE.
--- NOTE | 2019-08-08 13:24 | NUR ---
Pt had x1 episode of ground coffe MD tadeo made aware.
[2019-08-08] MEDS ORDERED: ONDANSETRON 4 MG/2 ML VIAL ONE ×2 (13:28→14:47)
[2019-08-08] MEDS ORDERED: ONDANSETRON 4 MG/2 ML VIAL IV ONE ×2 (13:30→15:00)
[2019-08-08] MEDS ORDERED: INSU100V39 SQ (13:48)
[2019-08-08] MEDS ORDERED: GLUC1KIT IM (13:50)
[2019-08-08 13:55] LABS: BASOPHILS % (AUTO) 0.1 % (0.0-2.0)
[2019-08-08 14:04] LABS: BILIRUBIN,DIRECT 0.2 mg/dL (0.0-0.2); BILIRUBIN,TOTAL 0.7 mg/dL (0.2-1.0); CREATININE 4.4 mg/dL (0.6-1.3); TOTAL PROTEIN, SERUM 7.1 g/dL (6.4-8.2)
[2019-08-08 14:05] LABS: HEMATOCRIT 37.4 % (36.7-47.1); HEMOGLOBIN 12.2 g/dL (12.5-16.3); LYMPHOCYTES # (AUTO) 0.3 K/uL (20.0-40.0); LYMPHOCYTES % (AUTO) 3.1 % (20.5-51.5); MEAN CORPUSCULAR HEMOGLOBIN 30.6 uug (23.8-33.4); MEAN CORPUSCULAR HGB CONC 33 g/dL (32.5-36.3); MEAN CORPUSCULAR VOLUME 94.3 fL (73.0-96.2); MONOCYTES # (AUTO) 0.7 K/uL (2.0-10.0); NEUTROPHILS # (AUTO) 9.9 K/uL (1.8-8.9); NEUTROPHILS % (AUTO) 90.8 % (38.5-71.5); PLATELET COUNT (AUTO) 155 K/uL (152-348); RED BLOOD CELL COUNT(AUTO) 3.97 MIL/uL (4.06-5.63); WHITE BLOOD COUNT (AUTO) 10.9 K/uL (3.6-10.2)
--- NOTE | 2019-08-08 14:10 | NUR ---
Patient is resting comfortably in bed with eyes closed, NAD noted.
[2019-08-08] MEDS ORDERED: CEFTRIAXONE 1 G in IV DEXTROSE 5% 50 ML IV ONE (14:30)
[2019-08-08] MEDS ORDERED: HYDROXYCHLOROQUINE SULFATE 200 MG TABLET PO ONE (14:30)
[2019-08-08] MEDS ORDERED: INSULIN REGULAR, HUMAN 100 UNIT in IV NORMAL SALINE 99 ML IV PRN ×2 (14:30)
[2019-08-08] MEDS ORDERED: AZITHROMYCIN IV 500 MG in IV DEXTROSE 5% 250 ML IV ONE (14:30)
[2019-08-08] MEDS ORDERED: AZITHROMYCIN 500 MG VIAL IV ONE (14:48)
[2019-08-08] MEDS ORDERED: CEFTRIAXONE /D5W 50ML IVPB **ER PYXIS IV ONE (14:49)
[2019-08-08] MEDS ORDERED: HYDROXYCHLOROQUINE SULFATE 200 MG TABLET ONE (14:49)
[2019-08-08] MEDS ORDERED: INSULIN REGULAR, HUMAN 300 UNIT/3 ML VIAL ONE (15:21)
[2019-08-08] MEDS ORDERED: ONDANSETRON 4 MG/2 ML VIAL IV PRN (16:30)
[2019-08-08] MEDS ORDERED: IV 1/2NS 1000 ML 1,000 ML IV PRN (16:30)
--- NOTE | 2019-08-08 16:30 | NUR ---
PATIENT BROUGHT IN COVID RULE OUT AND DKA. REPORT OBTAINED FROM ANYI CASTRO IN ER. CALLED DR RESENDIZ FOR FURTHER ADMITTING ORDERS
--- NOTE | 2019-08-08 16:35 | NUR ---
,Completed insulin infusion for ER, continue insulin drip infusion while transfered to [facility].
[2019-08-08] MEDS ORDERED: PRAMOXINE 1% TP SCH (17:00)
[2019-08-08] MEDS ORDERED: HYDROCORTISONE 1% RECTAL CREAM 28.35 GM TUBE RC SCH (17:00)
[2019-08-08 17:07] LABS: ABG BASE EXCESS -15.6 mmol/L; ABG HCO3 10.6 mmol/L; ABG PCO2 26.8 mmHg (35.0-45.0); ABG PH 7.216 (7.350-7.450); ABG PO2 74.7 mmHg (75.0-100.0); ABG SITE RIGHT RADIAL; ABG TOTAL HEMOGLOBIN 12.2 G/dL (13.5-18.0); COHb 1.4 % (0.5-1.5); MetHb 0.3 % (0.0-1.5); O2Hb 91.5 % (94.0-97.0); VENT MODE Room Air
--- NOTE | 2019-08-08 18:00 | NUR ---
CLARIFICATION DONE FOR ADMITTING INSULIN DRIP. CORRECT DKA FORM FILLED OUT AND FAXED TO PHARMACY AND UPDATED INFORMATION PER DR. RESENDIZ ON FORM.
[2019-08-08] MEDS ORDERED: HYDR30CR10 TP (18:15)
[2019-08-08] MEDS: INSULIN REGULAR, HUMAN 100 UNIT in IV NORMAL SALINE 99 ML IV PRN ×4 (18:26→22:21)
[2019-08-08] MEDS: CEFEPIME HCL 1 G in IV DEXTROSE 5% 50 ML IV SCH (18:27)
[2019-08-08] MEDS: HYDROXYCHLOROQUINE SULFATE 200 MG TABLET PO SCH (18:28)
--- NOTE | 2019-08-08 19:30 | NUR ---
patient is awake , able to follow simple command on insulin drip at 10 units , iv 1/2 ns at 100 ml , carcamo intact
--- NOTE | 2019-08-08 20:00 | NUR ---
guillermina meyer registered nurse obstetrics id is here to see patient , no nausea and vomiting noted
[2019-08-08] MEDS: MIRTAZAPINE 15 MG TABLET PO SCH (20:03)
[2019-08-08] MEDS: TAMSULOSIN HCL 0.4 MG CAP.SR.24H PO SCH (20:03)
[2019-08-08 20:52] LABS: CREATININE 4.1 mg/dL (0.6-1.3); POTASSIUM 4.3 mmol/L (3.5-5.1)
--- NOTE | 2019-08-08 21:08 | NUR ---
patient blood sugar is being checked every 1 hour and started on insulin drip algorithm 3 Addendum: 08/08/19 at 2108 by JUAN DANIEL ROLDAN RN Amended: Links added.
--- NOTE | 2019-08-08 21:09 | NUR ---
intake and output being monitored Addendum: 08/08/19 at 2109 by JUAN DANIEL ROLDAN RN Amended: Jose Angel added. Addendum: 08/08/19 at 2114 by JUAN DANIEL ROLDAN RN Amended: Jose Angel camacho.
--- NOTE | 2019-08-08 21:14 | NUR ---
reorientation and education given to the patient about insulin drip , unable to comprehend Addendum: 08/08/19 at 2114 by JUAN DANIEL ROLDAN RN Amended: Links added.
[2019-08-08] MEDS ORDERED: CEFEPIME HCL 2 G in IV DEXTROSE 5% 100 ML IV SCH (22:00)
[2019-08-09] VITALS (24 sets, daily range): BP systolic 127–158; BP diastolic 60–82
--- NOTE | 2019-08-09 | NUR ---
sleeping comfortably , insulin and iv 1/2 ns running , midline intact , , no vomiting for noted
--- NOTE | 2019-08-09 02:00 | NUR ---
sleeping well , vs stable , no distress , arousable to name and touch , able to follow simple command , no vomiting , insulin running and i v 1/s ns at 100 ml
[2019-08-09] MEDS ORDERED: IV DEXTROSE 5%-0.2% NS 1,000 ML IV PRN (04:45)
[2019-08-09] MEDS ORDERED: IV D5 1/2 NS 1000 ML 1,000 ML IV PRN (05:00)
[2019-08-09 05:54] LABS: BASOPHILS % (AUTO) 0.2 % (0.0-2.0); EOSINOPHILS % (AUTO) 0.1 % (0.0-7.0); HEMATOCRIT 36.8 % (36.7-47.1); HEMOGLOBIN 12.6 g/dL (12.5-16.3); LYMPHOCYTES # (AUTO) 0.8 K/uL (20.0-40.0); LYMPHOCYTES % (AUTO) 9.2 % (20.5-51.5); MEAN CORPUSCULAR HEMOGLOBIN 30.6 uug (23.8-33.4); MEAN CORPUSCULAR HGB CONC 34 g/dL (32.5-36.3); MEAN CORPUSCULAR VOLUME 89.1 fL (73.0-96.2); MONOCYTES # (AUTO) 0.6 K/uL (2.0-10.0); MONOCYTES % (AUTO) 6.8 % (0.0-11.0); NEUTROPHILS # (AUTO) 7.5 K/uL (1.8-8.9); NEUTROPHILS % (AUTO) 83.7 % (38.5-71.5); PLATELET COUNT (AUTO) 168 K/uL (152-348); RED BLOOD CELL COUNT(AUTO) 4.13 MIL/uL (4.06-5.63); WHITE BLOOD COUNT (AUTO) 8.9 K/uL (3.6-10.2)
--- NOTE | 2019-08-09 06:00 | NUR ---
arousable to touch , vs stable , insulin drip running at 2 units , iv was changed a\to d51/2 ns at 100 ml , ekg done
[2019-08-09 06:02] LABS: CREATINE KINASE, TOTAL 460 U/L (39-308); LACTATE DEHYDROGENASE 251 U/L (85-227)
[2019-08-09 06:30] LABS: BILIRUBIN,TOTAL 0.5 mg/dL (0.2-1.0); POTASSIUM 4.1 mmol/L (3.5-5.1); TOTAL PROTEIN, SERUM 6.9 g/dL (6.4-8.2)
[2019-08-09] MEDS: HYDROXYCHLOROQUINE SULFATE 200 MG TABLET PO SCH (08:00)
[2019-08-09] MEDS: AMLODIPINE 10 MG TABLET PO SCH (08:00)
[2019-08-09] MEDS ORDERED: BLOOD SUGAR DIAGNOSTIC 1 EACH STRIP VI SCH ×3 (08:00→10:00)
[2019-08-09] MEDS: ATORVASTATIN 10 MG TABLET PO SCH (08:00)
[2019-08-09] MEDS: HYDROCORTISONE 1% CREAM 30 GM TUBE TP SCH ×2 (08:03→16:59)
[2019-08-09] MEDS: ACETAMINOPHEN 325 MG TABLET PO PRN ×2 (08:17→21:01)
--- NOTE | 2019-08-09 10:00 | NUR ---
ID services Mary Lou Michele in the unit to see and examine patient.
[2019-08-09 10:33] LABS: *BLOOD, URINE 2+ (NEGATIVE); *CLARITY,URINE SLIGHTLY CLOUDY (CLEAR); *COLOR,URINE YELLOW (YELLOW); *KETONES,URINE TRACE (NEGATIVE); *UROBILINOGEN,URINE 0.2 E.U./dl (NORMAL); LEUKOCYTE ESTERASE ,URINE NEGATIVE (NEGATIVE); NITRITE, URINE NEGATIVE (NEGATIVE); PH,URINE 5.5 (5.0-8.0); UGLUCOSE TRACE (NEGATIVE)
[2019-08-09 10:36] LABS: *BILIRUBIN,URIN 1+ (NEGATIVE)
[2019-08-09 10:47] LABS: BACTERIA,URINE MODERATE /HPF (NONE SEEN); RBC,URINE 20-50 /HPF (0-3); SQUAMOUS EPITHELIAL CELL,UR FEW /HPF (NONE SEEN); URINE AMORPHOUS URATE MANY /HPF
[2019-08-09 10:48] LABS: MUCUS,URINE MODERATE /LPF (0-FEW)
[2019-08-09] MEDS ORDERED: DEXTROSE 50% 50 ML DISP.SYRIN IV PRN (11:00)
[2019-08-09] MEDS ORDERED: INSULIN REGULAR, HUMAN 300 UNITS/3 ML VIAL SQ PRN (11:00)
[2019-08-09 11:01] LABS: ABG BASE EXCESS -0.7 mmol/L; ABG HCO3 23.2 mmol/L; ABG PCO2 35.9 mmHg (35.0-45.0); ABG PH 7.429 (7.350-7.450); ABG PO2 61.6 mmHg (75.0-100.0); ABG SITE RIGHT RADIAL; ABG TOTAL HEMOGLOBIN 11.9 G/dL (13.5-18.0); COHb 1.3 % (0.5-1.5); MetHb 0.3 % (0.0-1.5); O2Hb 90.4 % (94.0-97.0); VENT MODE ROOM AIR
--- NOTE | 2019-08-09 11:20 | NUR ---
Pulmonary services, Dr. Jarrett in the unit to see and examine patient. Report given orders received see order hx.
[2019-08-09] MEDS: BLOOD SUGAR DIAGNOSTIC 1 EACH STRIP VI SCH ×3 (12:00→21:00)
[2019-08-09] MEDS: INSULIN REGULAR, HUMAN 300 UNIT/3 ML VIAL SQ PRN ×3 (12:04→21:38)
--- NOTE | 2019-08-09 12:30 | NUR ---
Patient with desaturation down to 87-88 and remains lethargic, responding only to touch and light pain. At this time placed on Nasal canula 3L. with saturation improving up to 91-93%.
[2019-08-09] MEDS ORDERED: AZITHROMYCIN IV 500 MG in IV DEXTROSE 5% 250 ML IV SCH (15:00)
[2019-08-09] MEDS ORDERED: HYDROXYCHLOROQUINE SULFATE 200 MG TABLET PO SCH (17:00)
[2019-08-09] MEDS: CEFEPIME HCL 1 G in IV DEXTROSE 5% 50 ML IV SCH (17:11)
--- NOTE | 2019-08-09 17:40 | NUR ---
Patient with an episode of desaturation down to 88-90 and sustained for 5min.. oxygen increase to 5L. Rt. Santana notified.
--- NOTE | 2019-08-09 17:45 | NUR ---
Attending physician Kevin Gill in the unit to see and examine patient,. informed and present when patient desaturating and oxygen need increased to 5L.
--- NOTE | 2019-08-09 19:30 | NUR ---
Report received. Patient on isolation for COVID-19. Opens eyes to name, disoriented to place and time but follows commands appropriately. Coughing non productively. Assessment done.
[2019-08-09 20:18] LABS: CREATININE 4.2 mg/dL (0.6-1.3); POTASSIUM 4.2 mmol/L (3.5-5.1)
[2019-08-09] MEDS: TAMSULOSIN HCL 0.4 MG CAP.SR.24H PO SCH (21:00)
[2019-08-09] MEDS: MIRTAZAPINE 15 MG TABLET PO SCH (21:00)
--- NOTE | 2019-08-09 21:00 | NUR ---
HOB above 30 degrees at all times. PO meds crushed and given with pudding; coughs easily. On aspiration precautions.
[2019-08-09] MEDS: INSULIN GLARGINE,HUM 300 UNITS/3 ML CARTRIDGE SQ SCH (21:36)
[2019-08-09] MEDS: IV 1/2NS 1000 ML 1,000 ML IV PRN (22:24)
[2019-08-10] VITALS (15 sets, daily range): BP systolic 115–157; BP diastolic 67–83
[2019-08-10] MEDS ORDERED: Z GUARD REMEDY PASTE 57 GM TUBE TOP PRN (02:45)
[2019-08-10] MEDS: ACETAMINOPHEN 325 MG TABLET PO PRN ×2 (04:52→10:59)
[2019-08-10 05:39] LABS: BASOPHILS % (AUTO) 0.1 % (0.0-2.0); HEMATOCRIT 38.6 % (36.7-47.1); HEMOGLOBIN 13.1 g/dL (12.5-16.3); LYMPHOCYTES # (AUTO) 0.6 K/uL (20.0-40.0); LYMPHOCYTES % (AUTO) 6.1 % (20.5-51.5); MEAN CORPUSCULAR HEMOGLOBIN 30.8 uug (23.8-33.4); MEAN CORPUSCULAR HGB CONC 34 g/dL (32.5-36.3); MEAN CORPUSCULAR VOLUME 91.2 fL (73.0-96.2); MONOCYTES # (AUTO) 0.3 K/uL (2.0-10.0); MONOCYTES % (AUTO) 3.7 % (0.0-11.0); NEUTROPHILS # (AUTO) 8.2 K/uL (1.8-8.9); NEUTROPHILS % (AUTO) 90.1 % (38.5-71.5); PLATELET COUNT (AUTO) 135 K/uL (152-348); RED BLOOD CELL COUNT(AUTO) 4.23 MIL/uL (4.06-5.63); WHITE BLOOD COUNT (AUTO) 9.1 K/uL (3.6-10.2)
[2019-08-10 05:53] LABS: BILIRUBIN,DIRECT 0.2 mg/dL (0.0-0.2); BILIRUBIN,TOTAL 0.7 mg/dL (0.2-1.0); MAGNESIUM 2.4 mg/dL (1.8-2.4); PHOSPHOROUS 3.2 mg/dL (2.5-4.9); POTASSIUM 4.3 mmol/L (3.5-5.1); TOTAL PROTEIN, SERUM 7.1 g/dL (6.4-8.2)
[2019-08-10 06:36] LABS: CREATININE 3.8 mg/dL (0.6-1.3)
[2019-08-10] MEDS: BLOOD SUGAR DIAGNOSTIC 1 EACH STRIP VI SCH ×4 (06:44→22:00)
--- NOTE | 2019-08-10 07:07 | NUR ---
No neuro changes. Tylenol po given x2 during the shift. Still coughs easily during po meds administration. BP stable.
[2019-08-10 08:08] LABS: ABG BASE EXCESS -1.8 mmol/L; ABG HCO3 21.9 mmol/L; ABG PCO2 33.6 mmHg (35.0-45.0); ABG PH 7.432 (7.350-7.450); ABG PO2 70.1 mmHg (75.0-100.0); ABG SITE RIGHT RADIAL; ABG TOTAL HEMOGLOBIN 11.9 G/dL (13.5-18.0); COHb 1.5 % (0.5-1.5); MetHb 0.3 % (0.0-1.5); O2Hb 92.8 % (94.0-97.0); VENT MODE Mask - Venturi
[2019-08-10] MEDS: ATORVASTATIN 10 MG TABLET PO SCH (08:19)
[2019-08-10] MEDS: AMLODIPINE 10 MG TABLET PO SCH (08:19)
[2019-08-10] MEDS: Z GUARD REMEDY PASTE 57 GM TUBE TOP SCH ×2 (08:20→21:48)
[2019-08-10] MEDS: HYDROCORTISONE 1% CREAM 30 GM TUBE TP SCH ×2 (08:20→17:06)
[2019-08-10] MEDS: FAMOTIDINE. 20 MG/2 ML VIAL IV SCH (10:35)
[2019-08-10] MEDS: HEPARIN SODIUM,PORCINE 5,000 UNITS/ML VIAL SQ SCH ×2 (10:38→22:04)
[2019-08-10] MEDS: INSULIN REGULAR, HUMAN 300 UNIT/3 ML VIAL SQ PRN ×2 (11:06→17:09)
[2019-08-10] MEDS: CEFEPIME HCL 2 G in IV DEXTROSE 5% 100 ML IV SCH (13:11)
[2019-08-10] MEDS: ACETAMINOPHEN 650 MG SUPP.RECT RC PRN (16:37)
--- NOTE | 2019-08-10 17:06 | NUR ---
CLINICAL PHARMACY NOTE:VANCOMYCIN DOSING Request for vancomycin dosing on a 68 y/o male 182.88cm 64.86kg for possible pneumonia Temp 101F BUN 89 Scr 3.8 WBC 9.1 COVID19 positive. Patient also on doxycycline and cefepime Give vancomycin 1gm ivpb x 1 this evening. Will dose by levels due to poor renal function. Will order random level for tomorrow evening.
[2019-08-10] MEDS ORDERED: VANCOMYCIN IV 1,000 MG in IV DEXTROSE 5% 250 ML IV ONE (18:00)
--- NOTE | 2019-08-10 20:00 | NUR ---
Patient received into care, laying in bed, resting comfortably. Patient is alert/oriented x1 and has no signs/symptoms of acute distress/discomfort at this time. Oxygen is running at 3l/min via venturi mask, IV 1/2 NS is running via Right UA midline. All safety, fall, and isolation precautions are in place. Call light and personal items are within reach at all times. Will continue to monitor and assess.
[2019-08-10] MEDS: TAMSULOSIN HCL 0.4 MG CAP.SR.24H PO SCH (21:47)
[2019-08-10] MEDS: MIRTAZAPINE 15 MG TABLET PO SCH (21:47)
[2019-08-10] MEDS: DOXYCYCLINE HYCLATE IV 100 MG in IV DEXTROSE 5% 100 ML IV SCH (21:48)
[2019-08-10] MEDS: INSULIN GLARGINE,HUM 300 UNITS/3 ML CARTRIDGE SQ SCH (22:03)
[2019-08-11] VITALS: BP 143/73
[2019-08-11 04:00] VITALS: BP 138/60
[2019-08-11] MEDS: ACETAMINOPHEN 650 MG SUPP.RECT RC PRN ×2 (04:37→20:56)
--- NOTE | 2019-08-11 06:00 | NUR ---
PATIENT SLEPT INTERMITTENTLY THROUGHOUT NIGHT WITH NO S/S OF ACUTE DISTRESS/DISCOMFORT NOTED/OBSERVED BY NURSE. INCREASED ORAL TEMPERATURE WAS ADDRESSED WITH COOLING MEASURES AND PRESCRIBED ACETAMINOPHEN. ALL NURSING NEEDS WERE MET AND PATIENT IS WARM, DRY, AND COMFORTABLE. ALL SAFETY, FALL, AND ISOLATION PRECAUTIONS REMAIN IN PLACE. CALL LIGHT AND PERSONAL ITEMS REMAIN WITHIN REACH AT ALL TIMES.
[2019-08-11 06:45] LABS: BASOPHILS % (AUTO) 0.2 % (0.0-2.0); HEMATOCRIT 37.3 % (36.7-47.1); HEMOGLOBIN 12.2 g/dL (12.5-16.3); LYMPHOCYTES # (AUTO) 0.9 K/uL (20.0-40.0); LYMPHOCYTES % (AUTO) 12.5 % (20.5-51.5); MEAN CORPUSCULAR HEMOGLOBIN 30.3 uug (23.8-33.4); MEAN CORPUSCULAR HGB CONC 33 g/dL (32.5-36.3); MEAN CORPUSCULAR VOLUME 92.2 fL (73.0-96.2); MONOCYTES # (AUTO) 0.3 K/uL (2.0-10.0); MONOCYTES % (AUTO) 3.7 % (0.0-11.0); NEUTROPHILS # (AUTO) 6.2 K/uL (1.8-8.9); NEUTROPHILS % (AUTO) 83.6 % (38.5-71.5); PLATELET COUNT (AUTO) 102 K/uL (152-348); RED BLOOD CELL COUNT(AUTO) 4.04 MIL/uL (4.06-5.63); WHITE BLOOD COUNT (AUTO) 7.4 K/uL (3.6-10.2)
[2019-08-11] MEDS: BLOOD SUGAR DIAGNOSTIC 1 EACH STRIP VI SCH ×4 (06:50→21:39)
[2019-08-11 07:12] LABS: CARBON DIOXIDE 25 mmol/L (21-32); CHLORIDE 118 mmol/L (98-107); FERRITIN 599 ng/mL (26-388); GLUCOSE 281 mg/dL (74-106); MAGNESIUM 2.5 mg/dL (1.8-2.4); PHOSPHOROUS 3.1 mg/dL (2.5-4.9); POTASSIUM 3.9 mmol/L (3.5-5.1); UREA NITROGEN, BLOOD 71 mg/dL (7-18)
--- NOTE | 2019-08-11 08:30 | NUR ---
received pt resting in bed alert oriented to self. Pt. appears in no acute distress. Oxygen is running at 3l/min via venturi mask, IV 1/2 NS is running via Right UA midline. Pt. has IV in L wrist. All safety, fall, and isolation precautions are in place. Call light and personal items are within reach at all times. Will continue to monitor and assess.
--- NOTE | 2019-08-11 09:09 | NUR ---
CLINICAL PHARMACY NOTE:VANCOMYCIN DOSING S: To continue vancomycin dosing on a 68 y/o male for possible pneumonia (COVID+) O: Temp 101.4F BUN 71 Scr 3.0 WBC 7.4 Vanco random level on 08/10 with am labs: 13.9 (post 1gm IV x1 on 08/09 at 1830) ht 182.8 cm wt 64 kg Plan Due to elevated srcr, will dose by random level. Since vanco random level this am is 13.9, wll give vancomycin 1gm ivpb x 1 today at 0930. Will dose by levels due to poor renal function. Will review srcr in am & order next random for further dosing. Will follow
[2019-08-11] MEDS ORDERED: VANCOMYCIN IV 1,000 MG in IV DEXTROSE 5% 250 ML IV ONE (09:30)
[2019-08-11 10:16] LABS: ABG BASE EXCESS -1.2 mmol/L; ABG HCO3 21.8 mmol/L; ABG PCO2 31.3 mmHg (35.0-45.0); ABG PH 7.461 (7.350-7.450); ABG PO2 52.4 mmHg (75.0-100.0); ABG SITE RIGHT RADIAL; ABG TOTAL HEMOGLOBIN 12.4 G/dL (13.5-18.0); COHb 1.8 % (0.5-1.5); MetHb 0.3 % (0.0-1.5); O2Hb 86.7 % (94.0-97.0); VENT MODE room air
[2019-08-11] MEDS: AMLODIPINE 10 MG TABLET PO SCH (10:39)
[2019-08-11] MEDS: FAMOTIDINE. 20 MG/2 ML VIAL IV SCH (10:40)
[2019-08-11] MEDS: Z GUARD REMEDY PASTE 57 GM TUBE TOP SCH ×2 (10:44→21:03)
[2019-08-11] MEDS: HEPARIN SODIUM,PORCINE 5,000 UNITS/ML VIAL SQ SCH ×2 (10:50→20:57)
[2019-08-11] MEDS: DOXYCYCLINE HYCLATE IV 100 MG in IV DEXTROSE 5% 100 ML IV SCH ×2 (10:53→20:56)
[2019-08-11] MEDS: IV 1/2NS 1000 ML 1,000 ML IV PRN (10:54)
[2019-08-11] MEDS: INSULIN REGULAR, HUMAN 300 UNIT/3 ML VIAL SQ PRN ×3 (10:59→19:03)
[2019-08-11 12:00] VITALS: BP 156/85
[2019-08-11] MEDS: HYDROCORTISONE 1% CREAM 30 GM TUBE TP SCH ×2 (12:41→21:03)
[2019-08-11] MEDS: CEFEPIME HCL 2 G in IV DEXTROSE 5% 100 ML IV SCH (12:47)
[2019-08-11 16:00] VITALS: BP 143/78
[2019-08-11 16:52] LABS: ABG BASE EXCESS 0.8 mmol/L; ABG HCO3 23.2 mmol/L; ABG PCO2 31.3 mmHg (35.0-45.0); ABG PH 7.488 (7.350-7.450); ABG PO2 59.1 mmHg (75.0-100.0); ABG SITE RIGHT RADIAL
--- NOTE | 2019-08-11 18:00 | NUR ---
Speech Therapist examined pt. around 1420 for swallow evaluation per Speech Therapist pt. was coughing. Around 1620 Pt. O2 saturation at 89% on venturi mask 28%. Respiratory Therapist examined pt. and increased venturi mask to 55% O2 saturation increased to low 90s. Pt. now on 100% non rebreather mask saturating at 92-94%. Dr. Kevin pink ordered ABGs and chest x ray. RT suctioned pt. At 1730 O2 saturation on 100% non rebreather at 95-96%. Dr. Kevin pink. Instructed to contact Dr. Jarrett. Will call Dr. Jarrett.
--- NOTE | 2019-08-11 18:08 | NUR ---
Spoke to Dr. Celeste doctor covering for photographic reproduction technician Dr. Jarrett. Doctor ordered ABGs for AM. Reported information to Dr. Brown hospitalist.
[2019-08-11] MEDS ORDERED: LOPINAVIR/RITONAVIR 200-50 MG TABLET NG ONE (18:45)
--- NOTE | 2019-08-11 19:20 | NUR ---
Received patient in bed in semi-fowlers position. The patient is difficult to arouse and is very warm to the touch. Patient is on high flow oxygen with a non-rebreather mask, with oxygen saturation in the low 90s. MARICARMEN midline, and 20 gauge peripheral IV in the left wrist. Was informed that the patient had a sudden decline in respiratory status around 1800.
--- NOTE | 2019-08-11 20:00 | NUR ---
Patient was noted with 104.1 temperature taken axiliary. I immediately implemented cooling measures with ice packs in the axilla and groin, and a cold wet washcloth on the forehead. Patient was also rubbed down with a cool wet washcloth.
[2019-08-11 20:09] VITALS: BP 140/71
--- NOTE | 2019-08-11 20:35 | NUR ---
Dr. Nunez was called and informed of the patient's condition as well as a decline in mental status and inability to take PO medications. He ordered NG tube placement and x-ray confirmation. Tylenol rectal suppository given.
[2019-08-11] MEDS: MUPIROCIN 2% OINT 22 GM TUBE TP SCH (21:00)
[2019-08-11] MEDS: INSULIN GLARGINE,HUM 300 UNITS/3 ML CARTRIDGE SQ SCH (21:00)
--- NOTE | 2019-08-11 21:00 | NUR ---
Went to the patient to insert the NG tube and the patient's condition improved considerably from active cooling measures. The patient was now awake and responsive. I asked if he would be able to take his medications if I crushed them in apple sauce and he nodded. I conducted a trial swallow evaluation, and he had no difficulty swallowing small spoonfuls of crushed ice. Good laryngeal elevation was noted, and no coughing was noted. At this point, I held off on inserting the NG tube as he was able to take his medications orally without issue. I would rather avoid an invasive procedure if possible, as such will hold on NG tube insertion and monitor the patient's condition. Management of the elevated temperature of primary concern at the moment, and the patient is responding well to active cooling and antipyretic medication.
--- NOTE | 2019-08-11 21:00 | NUR ---
Lantus dose held as blood sugar was measured at 96, and there was concern of him becoming hypoglycemic through the night as he is not taking any PO nutrition.
[2019-08-11] MEDS: MIRTAZAPINE 15 MG TABLET PO SCH (21:39)
[2019-08-11] MEDS: DARUNAVIR ETHANOLATE 800 MG TABLET NG SCH (21:39)
[2019-08-11] MEDS: RITONAVIR 100 MG NG SCH (21:39)
[2019-08-12] VITALS (8 sets, daily range): BP systolic 115–140; BP diastolic 60–79
--- NOTE | 2019-08-12 | NUR ---
Patient noted with 102.6 temperature. Ice packs exchanged for fresh ones. Cool washcloth placed on head, and he was rubbed down with a cold washcloth. Tylenol suppository not yet due for administration at this time.
--- NOTE | 2019-08-12 03:00 | NUR ---
Rectal Tylenol suppository given. Patient much more alert and coherent, responding appropriately and clearly to my questions. Oxygen saturation remains in the low 90s.
[2019-08-12] MEDS: ACETAMINOPHEN 650 MG SUPP.RECT RC PRN (03:02)
--- NOTE | 2019-08-12 05:10 | NUR ---
Patient's temperature down to 98.4. The patient is resting very comfortably and oxygen saturation is up to 94%.
[2019-08-12 06:28] LABS: MEAN CORPUSCULAR HEMOGLOBIN 30.5 uug (23.8-33.4); MONOCYTES # (AUTO) 0.4 K/uL (2.0-10.0)
[2019-08-12 06:43] LABS: BASOPHILS % (AUTO) 0.1 % (0.0-2.0); HEMATOCRIT 38.2 % (36.7-47.1); HEMOGLOBIN 12.5 g/dL (12.5-16.3); LYMPHOCYTES % (AUTO) 12.3 % (20.5-51.5); MEAN CORPUSCULAR HGB CONC 33 g/dL (32.5-36.3); MEAN CORPUSCULAR VOLUME 93.1 fL (73.0-96.2); MONOCYTES % (AUTO) 4.5 % (0.0-11.0); NEUTROPHILS # (AUTO) 6.6 K/uL (1.8-8.9); NEUTROPHILS % (AUTO) 83.1 % (38.5-71.5); PLATELET COUNT (AUTO) 98 K/uL (152-348)
[2019-08-12 06:52] LABS: CREATININE 3.3 mg/dL (0.6-1.3); MAGNESIUM 2.3 mg/dL (1.8-2.4); POTASSIUM 3.9 mmol/L (3.5-5.1)
[2019-08-12] MEDS: IV 1/2NS 1000 ML 1,000 ML IV PRN (07:08)
[2019-08-12 07:20] LABS: BAND % (MANUAL) 6 % (0-10); LYMPHOCYTES % (MANUAL) 14 % (20-40); METAMYELOCYTES % 1 % (0-1); MONOCYTES % (MANUAL) 5 % (2-10); NEUTROPHILS % (MANUAL) 74 % (42-75)
--- NOTE | 2019-08-12 07:33 | NUR ---
CLINICAL PHARMACY NOTE:VANCOMYCIN DOSING S: To continue vancomycin dosing on a 68 y/o male for possible pneumonia (COVID+) O: Temp 102.6F BUN 69 Scr 3.3 WBC 8 Vanco random level on 08/10 with am labs: 13.9 (post 1gm IV x1 on 08/09 at 1830) vanco random level on 08/11 at 1800: Pending ht 182.8 cm wt 64 kg Plan Due to elevated srcr, will dose by random level. Patient received vancomycin 1gm ivpb x 1 yesterday at 1044. Plan to check vanco ran dom level today at 1800. Pharmacy shall review the level & re-dose if needed. Will follow Addendum: 08/12/19 at 2000 by KRUPA CASTILLO RANDOM VANCOMYCIN LEVEL 13.6 WILL ORDER ANOTHER 1GM OF VANCOMYCIN.
--- NOTE | 2019-08-12 08:30 | NUR ---
patient is resting in bed semi-fowlers position alert oriented to self. Pt. is arousable to touch and name. Pt. is able to open eyes and answer basic questions and follow simple commands. Improvement from yesterday. Patient is on high flow oxygen with a non-rebreather mask, with oxygen saturation in the mid 90s 93-96%. MARICARMEN midline, and 20 gauge peripheral IV in the left wrist. Pt. is able to swallow crushed medications mixed with apple sauce. Pt. is on tele monitor sinus rhythm. Pt. does not have a temperature at this time. Applied cool towel to forehead for preventative measures. safety measures in place. call light within reach. will continue to monitor pt.
[2019-08-12 08:34] LABS: ABG BASE EXCESS -0.7 mmol/L; ABG HCO3 22.4 mmol/L; ABG PCO2 32.8 mmHg (35.0-45.0); ABG PH 7.453 (7.350-7.450); ABG PO2 62.2 mmHg (75.0-100.0); ABG SITE RIGHT RADIAL; ABG TOTAL HEMOGLOBIN 13.7 G/dL (13.5-18.0); COHb 1.8 % (0.5-1.5); MetHb 0.3 % (0.0-1.5); O2Hb 89.6 % (94.0-97.0)
[2019-08-12] MEDS: DOXYCYCLINE HYCLATE IV 100 MG in IV DEXTROSE 5% 100 ML IV SCH ×2 (08:52→20:27)
[2019-08-12] MEDS: FAMOTIDINE 20 MG TABLET PO SCH (08:52)
[2019-08-12] MEDS: AMLODIPINE 10 MG TABLET PO SCH (08:52)
[2019-08-12] MEDS ORDERED: HEPARIN SODIUM,PORCINE 5,000 UNITS/ML VIAL SQ SCH (09:00)
[2019-08-12] MEDS: BLOOD SUGAR DIAGNOSTIC 1 EACH STRIP VI SCH ×4 (09:15→21:07)
--- NOTE | 2019-08-12 10:12 | NUR ---
Manager Critical Care Unit Dr. Jarrett at beside assessing pt. No new orders. Pt. saturating 96% on high flow non rebreather mask. pt. is comfortable. All needs met. will continue to monitor pt.
[2019-08-12] MEDS: Z GUARD REMEDY PASTE 57 GM TUBE TOP SCH ×2 (10:13→20:28)
[2019-08-12] MEDS: HYDROCORTISONE 1% CREAM 30 GM TUBE TP SCH ×2 (10:14→20:29)
[2019-08-12] MEDS: MUPIROCIN 2% OINT 22 GM TUBE TP SCH ×2 (10:14→20:29)
[2019-08-12] MEDS ORDERED: methylPREDNISolone SOD SUCC 40 MG/ML VIAL IV ONE (12:00)
[2019-08-12] MEDS ORDERED: diphenhydrAMINE 50 MG/1 ML VIAL IV ONE (12:00)
[2019-08-12] MEDS ORDERED: ACETAMINOPHEN 650 MG SUPP.RECT RC ONE (12:00)
[2019-08-12] MEDS ORDERED: ACETAMINOPHEN 650 MG/20.3 ML LIQUID UDC NG ONE (12:00)
[2019-08-12] MEDS: INSULIN REGULAR, HUMAN 300 UNIT/3 ML VIAL SQ PRN (12:18)
--- NOTE | 2019-08-12 12:20 | NUR ---
Provided pt. with benadryl IV, solumedrol IV, tylenol suppository. Pt. has not had any IV fluids running since 12 PM. Received medication from pharmacy. Spoke to pharmacist Norma and instructed to give pt. medication in 30 minutes since pt. just received suppository and IV benadryl/ solumedrol.
[2019-08-12] MEDS ORDERED: TOCILIZUMAB 400 MG in IV NORMAL SALINE 80 ML IV ONE (12:30)
[2019-08-12] MEDS: CEFEPIME HCL 2 G in IV DEXTROSE 5% 100 ML IV SCH (13:44)
--- NOTE | 2019-08-12 14:27 | NUR ---
Pt. had no adverse reactions to IV medication. Pt. appears more alert and able to have a small conversation/ make needs known. pt. still resting with eyes closed but arousable to name. Pt. saturating at 94-96% on high flow non rebreather. Pt. has not had a fever throughout shift. Cooling towel applied for prevention. Vitals stable. pt. appears comfortable / in no distress. safety measures in place. will continue to monitor pt.
--- NOTE | 2019-08-12 19:01 | NUR ---
pt. resting comfortably throughout shift. Pt. did not have temperature throughout shift. pt. more alert, able to make needs known. pt. still on high flow nonrebreather mask saturating at 96%. Pt. tolerated medication well. safety measures in place. bed in lowest position. will endorse to pm nurse.
--- NOTE | 2019-08-12 19:50 | NUR ---
PATIENT ON BED RESTING COMFORTABLY, AFIBRILE, SINUS RHYTHM ON THE MONITOR, NO SOB . NO COUGH NOTED . DROPLET ISOLATION OBSERVED FOR POSITIVE COVID WILL CONTINUE TO MONITOR
[2019-08-12] MEDS: DARUNAVIR ETHANOLATE 800 MG TABLET NG SCH (20:26)
[2019-08-12] MEDS: RITONAVIR 100 MG NG SCH (20:26)
[2019-08-12] MEDS: MIRTAZAPINE 15 MG TABLET PO SCH (20:28)
[2019-08-12] MEDS: INSULIN GLARGINE,HUM 300 UNITS/3 ML CARTRIDGE SQ SCH (21:00)
[2019-08-12] MEDS ORDERED: VANCOMYCIN IV 1,000 MG in IV DEXTROSE 5% 250 ML IV ONE (21:00)
[2019-08-13] VITALS (7 sets, daily range): BP systolic 99–148; BP diastolic 66–75
[2019-08-13 06:36] LABS: ABG BASE EXCESS -3.9 mmol/L; ABG HCO3 18.8 mmol/L; ABG PCO2 28.1 mmHg (35.0-45.0); ABG PH 7.444 (7.350-7.450); ABG SITE RIGHT RADIAL; ABG TOTAL HEMOGLOBIN 13.3 G/dL (13.5-18.0); COHb 1.8 % (0.5-1.5); MetHb 0.3 % (0.0-1.5); O2Hb 91.9 % (94.0-97.0)
--- NOTE | 2019-08-13 06:53 | NUR ---
PATIENT INTERMITTENTLY SLEEPING, , AROUSABLE TO VERBAL RESPONSE. SINUS RHYTHM ON THE MONITOR. PATIENT USING REBREATHING MASK WITH O2 SAT 98%. PATIENT AFEBRILE. NO C/O OF PAIN. CONTINUING ON DROPLET ISOLATION OR ANY DISCOMFORT. IVFLUID INFUSING ORDRED. F/C DRAINING YELLOW URINE. WILL CONTINUE TO MONITOR
[2019-08-13] MEDS: BLOOD SUGAR DIAGNOSTIC 1 EACH STRIP VI SCH ×3 (06:59→18:50)
[2019-08-13] MEDS: AMLODIPINE 10 MG TABLET PO SCH (09:00)
[2019-08-13] MEDS: DOXYCYCLINE HYCLATE IV 100 MG in IV DEXTROSE 5% 100 ML IV SCH ×2 (09:40→20:59)
[2019-08-13] MEDS: Z GUARD REMEDY PASTE 57 GM TUBE TOP SCH ×2 (09:41→21:04)
[2019-08-13] MEDS: MUPIROCIN 2% OINT 22 GM TUBE TP SCH ×2 (09:41→21:05)
[2019-08-13] MEDS: FAMOTIDINE 20 MG TABLET PO SCH (09:41)
[2019-08-13] MEDS: HYDROCORTISONE 1% CREAM 30 GM TUBE TP SCH ×2 (09:41→21:05)
[2019-08-13 10:08] LABS: BASOPHILS % (AUTO) 0.1 % (0.0-2.0); HEMOGLOBIN 12.2 g/dL (12.5-16.3); LYMPHOCYTES # (AUTO) 0.7 K/uL (20.0-40.0); LYMPHOCYTES % (AUTO) 9.9 % (20.5-51.5); MEAN CORPUSCULAR HEMOGLOBIN 30.2 uug (23.8-33.4); MEAN CORPUSCULAR HGB CONC 32 g/dL (32.5-36.3); MEAN CORPUSCULAR VOLUME 93.8 fL (73.0-96.2); MONOCYTES # (AUTO) 0.4 K/uL (2.0-10.0); MONOCYTES % (AUTO) 5.3 % (0.0-11.0); NEUTROPHILS # (AUTO) 5.7 K/uL (1.8-8.9); NEUTROPHILS % (AUTO) 84.7 % (38.5-71.5); PLATELET COUNT (AUTO) 109 K/uL (152-348); RED BLOOD CELL COUNT(AUTO) 4.05 MIL/uL (4.06-5.63); WHITE BLOOD COUNT (AUTO) 6.7 K/uL (3.6-10.2)
--- NOTE | 2019-08-13 10:20 | NUR ---
Air mattress applied to bed as redness on sacrum seen. Not open and it is blanchable. patient verbalized a request to brush teeth and is alert to name. No distress noted at this time, PO meds taken without cough crushed in small amount of apple sauce. Patient was able to gargle water and spit into basin. Bed in low position, side rails up x2. Bed alarm set. Patient able to press call light after instructions given.
[2019-08-13 10:30] LABS: BILIRUBIN,TOTAL 0.9 mg/dL (0.2-1.0); CREATININE 3.6 mg/dL (0.6-1.3); MAGNESIUM 2.3 mg/dL (1.8-2.4); PHOSPHOROUS 4.2 mg/dL (2.5-4.9); TOTAL PROTEIN, SERUM 6.1 g/dL (6.4-8.2)
[2019-08-13] MEDS ORDERED: DEXTROSE 50% 50 ML DISP.SYRIN IV PRN (10:45)
[2019-08-13] MEDS: INSULIN REGULAR, HUMAN 300 UNIT/3 ML VIAL SQ PRN ×2 (11:19→18:58)
[2019-08-13 11:26] LABS: FERRITIN 1386 ng/mL (26-388); LACTATE DEHYDROGENASE 566 U/L (85-227)
--- NOTE | 2019-08-13 11:47 | NUR ---
CLINICAL PHARMACY NOTE:VANCOMYCIN DOSING S: To continue vancomycin dosing on a 68 y/o male for possible pneumonia (COVID+) O: Temp 98.6 BUN 94 Scr 3.6 WBC 6.7 Vanco random level on 08/10 with am labs: 13.9 (post 1gm IV x1 on 08/09 at 1830) vanco random level on 08/11 at 1800: 13.6 ht 182.8 cm wt 64 kg Plan Due to elevated srcr, will continue to dose by random level(no HD yet). Patient received vancomycin 1gm ivpb x 1 last night at 2253. Plan to check vanco random level tomorrow at 0600. Pharmacy shall review the level & re-dose if needed. Will follow.
[2019-08-13] MEDS: CEFEPIME HCL 2 G in IV DEXTROSE 5% 100 ML IV SCH (13:37)
[2019-08-13] MEDS: RITONAVIR 100 MG NG SCH (20:58)
[2019-08-13] MEDS: DARUNAVIR ETHANOLATE 800 MG TABLET NG SCH (20:58)
[2019-08-13] MEDS: INSULIN GLARGINE,HUM 300 UNITS/3 ML CARTRIDGE SQ SCH (21:03)
[2019-08-13] MEDS: MIRTAZAPINE 15 MG TABLET PO SCH (21:04)
[2019-08-14] VITALS: BP 159/80
[2019-08-14] MEDS: INSULIN REGULAR, HUMAN 300 UNIT/3 ML VIAL SQ PRN ×5 (00:30→23:52)
[2019-08-14 04:00] VITALS: BP 121/69
[2019-08-14] MEDS: BLOOD SUGAR DIAGNOSTIC 1 EACH STRIP VI SCH ×5 (06:03→23:49)
[2019-08-14] MEDS: IV 1/2NS 1000 ML 1,000 ML IV PRN (06:06)
[2019-08-14 07:35] LABS: BASOPHILS % (AUTO) 0.1 % (0.0-2.0); HEMATOCRIT 38.4 % (36.7-47.1); HEMOGLOBIN 12.6 g/dL (12.5-16.3); LYMPHOCYTES # (AUTO) 0.9 K/uL (20.0-40.0); LYMPHOCYTES % (AUTO) 8.9 % (20.5-51.5); MEAN CORPUSCULAR HEMOGLOBIN 30.1 uug (23.8-33.4); MEAN CORPUSCULAR HGB CONC 33 g/dL (32.5-36.3); MEAN CORPUSCULAR VOLUME 91.9 fL (73.0-96.2); MONOCYTES # (AUTO) 0.5 K/uL (2.0-10.0); NEUTROPHILS # (AUTO) 8.8 K/uL (1.8-8.9); PLATELET COUNT (AUTO) 151 K/uL (152-348); RED BLOOD CELL COUNT(AUTO) 4.18 MIL/uL (4.06-5.63); WHITE BLOOD COUNT (AUTO) 10.2 K/uL (3.6-10.2)
[2019-08-14 07:39] LABS: CREATININE 3.7 mg/dL (0.6-1.3); MAGNESIUM 2.4 mg/dL (1.8-2.4); PHOSPHOROUS 3.5 mg/dL (2.5-4.9); POTASSIUM 3.7 mmol/L (3.5-5.1); VANCOMYCIN,RANDOM 17.3 ug/mL (18.0-26.0)
--- NOTE | 2019-08-14 08:00 | NUR ---
PATIENT RECEIVED IN BED AWAKE ALERT AND VERBALLY RESPONDED WHEN ASKED HOW HE WAS HE STATED " I AM OKAY" BUT IS UNABLE TO CARRY ON FUTHER CONVERSATION AT THIS TIME HE REMAINS ON NON REBREATHER MASK AT 15 LITERS PER MINUTE.WITH NO SOB AT THIS TIME NGT IS PATENT BUT I DID NOT SEE ANY RECHECK OF THE PLACEMENT SINCE LAST NOC SO I REORDERED A CHEST XRAY TO RECONFIRM THAT THE NGT WAS ADVANCED XRAY RESULT SUGGESTED PATIENT IN ON AIR DAVON ASSISTED WITH REPOSITIONING REMAIN ON CONTACT AND RESPIRATORY ISOLATION AND PRECAUTION MADE COMFORTABLE WILL CONTINUE TO OBSERVE.
[2019-08-14] MEDS: DOXYCYCLINE HYCLATE IV 100 MG in IV DEXTROSE 5% 100 ML IV SCH ×2 (08:13→20:21)
[2019-08-14] MEDS: FAMOTIDINE 20 MG TABLET PO SCH (08:13)
[2019-08-14] MEDS: Z GUARD REMEDY PASTE 57 GM TUBE TOP SCH ×2 (08:14→20:16)
[2019-08-14] MEDS: MUPIROCIN 2% OINT 22 GM TUBE TP SCH ×2 (08:49→20:16)
[2019-08-14] MEDS: HYDROCORTISONE 1% CREAM 30 GM TUBE TP SCH ×2 (08:49→20:16)
[2019-08-14] MEDS ORDERED: VANCOMYCIN IV 1,000 MG in IV DEXTROSE 5% 250 ML IV ONE (09:00)
--- NOTE | 2019-08-14 10:15 | NUR ---
DR PERALTA HERE SEEN PATIENT WITH NO NEW ORDERS AT THIS TIME
--- NOTE | 2019-08-14 10:18 | NUR ---
CLINICAL PHARMACY NOTE:VANCOMYCIN DOSING S: To continue vancomycin dosing on a 68 y/o male for possible pneumonia (COVID+) O: Temp 99.6 BUN 101 Scr 3.7 WBC 10.2 Vanco random level on 08/10 with am labs: 13.9 (post 1gm IV x1 on 08/09 at 1830) vanco random level on 08/11 at 1800: 13.6 Vanco random level on 08/13 at 0600: 17.3 ht 182.8 cm wt 64 kg Plan Due to elevated srcr, will continue to dose by random level(no HD yet). Per today's random, dosed another 1gm vanco today at 0900. Next random ordered for 08/15 at 0600 with am labs. Will check next random when results and re-dose as needed.
--- NOTE | 2019-08-14 10:45 | NUR ---
CALL RECEIVED FROM BERE STATED THAT SHE WAS A HISTOTECHNOLOGIST STATED THAT THE NGT IS AT THE TIP OF THE STOMACH AND SHOULD BE ADVANCED ABOUT 10 CM SO I ASKED HER TO CONFIRM WITH DR BUENO IF AFTER I ADVANCE THE 10 CM IF I NEEDED TO DO ANOTHER CHEST XRAY SO WHILE I WAITED SHE ASKED DR BUENO AND THE PLAN IS TO DO NOT DO ANOTHER CHEST XRAY OK TO USE IF THE ADVANCEMENT WAS SUCCESSFUL SO NGT ADVANCED FROM 45CM TO 55 CM PATIENT TOLERATED WELL
[2019-08-14] MEDS: GLUCERNA SHAKE 237 ML CAN NG SCH ×4 (10:51→20:17)
--- NOTE | 2019-08-14 11:00 | NUR ---
GLUCERNA GIVEN ORDERED WAS SEEN BY THE SLT AND SHE CHANGED HIS DIET TO FULL LIQUID.
--- NOTE | 2019-08-14 11:10 | NUR ---
PATIENT SEEN AND EXAMINED BY DR FITCH CLAY DRY PRESS MIXER OPERATOR WITH NO NEW ORDERS AT THIS TIME.
--- NOTE | 2019-08-14 11:57 | NUR ---
BLOOD SUGAR AT THIS TIME IS 422 PATIENT HAS NO SYMPTOMS OF HYPERGLYCEMIC REACTIONS PROTOCOL FOLLOWED MD AWARE INSULIN PER SLIDING SCALE GIVEN ORDERED
[2019-08-14 12:00] VITALS: BP 154/78
[2019-08-14] MEDS: CEFEPIME HCL 2 G in IV DEXTROSE 5% 100 ML IV SCH (12:13)
[2019-08-14 14:17] LABS: *BILIRUBIN,URIN NEGATIVE (NEGATIVE); *BLOOD, URINE 2+ (NEGATIVE); *CLARITY,URINE SLIGHTLY CLOUDY (CLEAR); *COLOR,URINE YELLOW (YELLOW); *KETONES,URINE NEGATIVE (NEGATIVE); *UROBILINOGEN,URINE 0.2 E.U./dl (NORMAL); LEUKOCYTE ESTERASE ,URINE NEGATIVE (NEGATIVE); NITRITE, URINE NEGATIVE (NEGATIVE); PH,URINE 5.5 (5.0-8.0)
[2019-08-14 14:18] LABS: UGLUCOSE 2+ (NEGATIVE)
[2019-08-14 14:23] LABS: BACTERIA,URINE MODERATE /HPF (NONE SEEN); SQUAMOUS EPITHELIAL CELL,UR FEW /HPF (NONE SEEN)
[2019-08-14 14:24] LABS: MUCUS,URINE MANY /LPF (0-FEW); URINE AMORPHOUS URATE MANY /HPF
--- NOTE | 2019-08-14 15:00 | NUR ---
REMAIN ALERT AND VERBALLY RESPONDS WHEN SPOKE TO DENIES DISCOMFORTS DIFFICULTY FEEDING HIM ORALLY PATIENT IS ON NRM WITH CONTINUOS O2 SATS MONITORING NGT INTACT AND PATENT GLUCERNA GIVEN VIA NGT ORDERED WITH NO REGURGITATION OR EMESIS AT THIS TIME WILL CONTINUE TO OBSERVE.
[2019-08-14 16:00] VITALS: BP 118/60
--- NOTE | 2019-08-14 16:30 | NUR ---
DR BULLOCK HERE TO SEE PATIENT WITH ORDER TO INCREASE FREE WATER TO 350 ML Q6H AND ALSO INCREASE LANTUS TO 26 UNITS Q HS AND NOTED
--- NOTE | 2019-08-14 18:30 | NUR ---
PATIENT IS REQUESTING TO GET OUT OF BED VERY WEAK WANTS TO GO TO THE TOILET OFFERED BEDPAN UNABLE TO USE STATED UNABLE TO MOVE HIS BOWEL UNLESS HE GOES TO THE BATHROOM DR TAVARES NOTIFIED STATED TO ORDER PHYSICAL THERAPY EVAL TO EVALUATE TO SEE IF HE WILL BE ABLE TO STAND AND NOTED.
[2019-08-14] MEDS: MIRTAZAPINE 15 MG TABLET PO SCH (20:16)
[2019-08-14] MEDS: RITONAVIR 100 MG NG SCH (20:16)
[2019-08-14] MEDS: DARUNAVIR ETHANOLATE 800 MG TABLET NG SCH (20:16)
[2019-08-14] MEDS: INSULIN GLARGINE,HUM 300 UNITS/3 ML CARTRIDGE SQ SCH (20:18)
--- NOTE | 2019-08-14 21:00 | NUR ---
Received patient awake and alert in bed, no signs of acute distress noted. On nonrebreather mask at 15L saturating at 93-94% Vitals are WNL. Marte catheter is intact, draining well. Midline on the right upper arm is intact and patent. IVF running, no s/s of infection or infiltration noted. NGT in the right nares is intact, patent. Administered glucerna bolus and tolerated well. On air loss mattress. On contact/droplet isolation for positive COVID. Safety measures maintained. Will continue to monitor.
[2019-08-14 21:36] VITALS: BP 125/70
--- NOTE | 2019-08-15 00:19 | NUR ---
Patient with x1 episode of vomiting. Denies any nausea or urge to vomit at this time. Cleaned and repositioned. Patient also had BM. Will continue to monitor.
[2019-08-15 01:00] VITALS: BP 140/71
--- NOTE | 2019-08-15 02:44 | NUR ---
Patient had another episode of vomiting. Endorsed to Jael Donahue CHIEF REVENUE OFFICER that after AM nurse advanced NGT 10cm, there was no repeat and also that there was almost 60cc residual. Jael ordered to stop feeding and check chest XR in am and then if NGT in place and there is low residual to continue feeding.
[2019-08-15 05:18] VITALS: BP 149/75
[2019-08-15] MEDS: IV 1/2NS 1000 ML 1,000 ML IV PRN (05:57)
[2019-08-15] MEDS: BLOOD SUGAR DIAGNOSTIC 1 EACH STRIP VI SCH ×3 (06:19→17:19)
[2019-08-15] MEDS: INSULIN REGULAR, HUMAN 300 UNIT/3 ML VIAL SQ PRN ×3 (06:21→17:25)
[2019-08-15 07:08] LABS: HEMOGLOBIN 13.2 g/dL (12.5-16.3); MEAN CORPUSCULAR HGB CONC 32 g/dL (32.5-36.3)
[2019-08-15 07:11] LABS: BILIRUBIN,TOTAL 0.7 mg/dL (0.2-1.0); CREATININE 3.4 mg/dL (0.6-1.3); MAGNESIUM 2.3 mg/dL (1.8-2.4); PHOSPHOROUS 3.3 mg/dL (2.5-4.9); POTASSIUM 3.2 mmol/L (3.5-5.1); TOTAL PROTEIN, SERUM 6.1 g/dL (6.4-8.2)
[2019-08-15 07:25] LABS: BASOPHILS % (AUTO) 0.1 % (0.0-2.0); EOSINOPHILS % (AUTO) 0.2 % (0.0-7.0); HEMATOCRIT 40.8 % (36.7-47.1); LYMPHOCYTES # (AUTO) 0.9 K/uL (20.0-40.0); LYMPHOCYTES % (AUTO) 7.2 % (20.5-51.5); MEAN CORPUSCULAR HEMOGLOBIN 29.8 uug (23.8-33.4); MEAN CORPUSCULAR VOLUME 92.1 fL (73.0-96.2); MONOCYTES # (AUTO) 0.5 K/uL (2.0-10.0); MONOCYTES % (AUTO) 3.7 % (0.0-11.0); NEUTROPHILS # (AUTO) 11.7 K/uL (1.8-8.9); NEUTROPHILS % (AUTO) 88.8 % (38.5-71.5); PLATELET COUNT (AUTO) 175 K/uL (152-348); RED BLOOD CELL COUNT(AUTO) 4.43 MIL/uL (4.06-5.63)
[2019-08-15 07:28] LABS: WHITE BLOOD COUNT (AUTO) 13.2 K/uL (3.6-10.2)
[2019-08-15] MEDS: FAMOTIDINE 20 MG TABLET PO SCH (08:50)
[2019-08-15] MEDS: HYDROCORTISONE 1% CREAM 30 GM TUBE TP SCH ×2 (08:53→21:07)
[2019-08-15] MEDS: MUPIROCIN 2% OINT 22 GM TUBE TP SCH ×2 (08:54→21:07)
[2019-08-15] MEDS: Z GUARD REMEDY PASTE 57 GM TUBE TOP SCH ×2 (08:54→21:06)
[2019-08-15] MEDS: DOXYCYCLINE HYCLATE IV 100 MG in IV DEXTROSE 5% 100 ML IV SCH ×2 (08:55→21:05)
[2019-08-15] MEDS: GLUCERNA SHAKE 237 ML CAN NG SCH ×4 (09:00→21:08)
--- NOTE | 2019-08-15 09:15 | NUR ---
DR PERALTA HERE AND SEEN PATIENT WITH NO NEW ORDERS AT THIS TIME
--- NOTE | 2019-08-15 09:19 | NUR ---
PATIENT HAD AN EMESIS APPROXIMATELY 200 ML OF BROWNISH LIQUIDS GLUCERABEL HELD CALLED DR TAVARES AND LEFT HIM A MESSAGE.
--- NOTE | 2019-08-15 09:37 | NUR ---
CALL RECEIVED FROM DR TAVARES HE IS AWARE OF THE BROWNISH EMESIS AND THAT I AM HOLDING HIS FEDDINGS WITH NEW ORDERS AND NOTED
[2019-08-15] MEDS ORDERED: ONDANSETRON 4 MG/2 ML VIAL IV PRN (09:45)
[2019-08-15 11:33] VITALS: BP 143/70
[2019-08-15] MEDS: CEFEPIME HCL 2 G in IV DEXTROSE 5% 100 ML IV SCH (11:50)
--- NOTE | 2019-08-15 13:28 | NUR ---
CLINICAL PHARMACY NOTE:VANCOMYCIN DOSING S: To continue vancomycin dosing on a 68 y/o male for possible pneumonia (COVID+) O: Temp 98.7 BUN 99 Scr 3.4 WBC 13.2 Vanco random level on 08/10 with am labs: 13.9 (post 1gm IV x1 on 08/09 at 1830) vanco random level on 08/11 at 1800: 13.6 Vanco random level on 08/13 at 0600: 17.3 Vanco random level pending 08/15 with am labs ht 182.8 cm wt 64 kg Plan Due to elevated srcr, will continue to dose by random level(no HD yet). Last dose of vanco 1gm given yesterday at 0900. Next random ordered for tomorrow 08/15 at 0600 with am labs. Will check next random when results and re-dose as needed.
--- NOTE | 2019-08-15 13:42 | NUR ---
GLUCERNA NOT GIVEN PATIENT HAS A RESIDUAL OF [address] TAVARES AND LEFT HIM A MESSAGE.NO FUTHER EMESIS AT THIS TIME
--- NOTE | 2019-08-15 15:06 | NUR ---
SPOKE WITH DR TAVARES RE HAS BEEN UNABLE TO FEED PATIENT VERY HIGH RESIDUAL ABOUT 200 DARK BROWN LIQUIDS STATED OKAY WILL CHECK PATIENT NO NEW ORDERS AT THIS TIME
[2019-08-15 16:01] VITALS: BP 136/76
--- NOTE | 2019-08-15 17:10 | NUR ---
POTASSIUM LEVEL IS 3.2 WITH POTASSIUM REPLACEMENT ORDER AT THIS TIME.
[2019-08-15] MEDS ORDERED: POTASSIUM CHLORIDE 50 ML IV SCH (18:00)
--- NOTE | 2019-08-15 18:00 | NUR ---
WAS ABLE TO GIVE HIM GLUCERNA BOLUS AT THIS TIME RESIDUAL WAS ABOUT 30 ML PATIENT IS AWAKE ALERT BUT SLIGHTLY DISORIENTED REMOVED HIS MASK MANY TIMES NAD REMOVED HIS O2 SENSOR THAT WAS TAPPED TO HIS FINGER REAPPLIED WITH A TAPE AND EDUCATED TO LEAVE IT IN PLACE TO HELP US KNOW WHEN HIS O2 LEVEL MIS LOW STATED OKAY WILL CONTINUE TO OBSERVE
--- NOTE | 2019-08-15 19:30 | NUR ---
Patient received currently laying in bed, resting comfortably. Patient is alert/oriented x1 and has no signs/symptoms of acute distress/discomfort at this time. Patient actively removing 15 LPM non rebreather mask and is desaturating to 70% in RA. With IO2 on, he is back to 91% O2 Sat. IV 1/2 NS is running via Right UA midline at 60cc as ordered. All safety, fall, and isolation precautions are in place. Call light and personal items are within reach at all times. Will continue to monitor and assess. Normal Sinus rhythm in tele.
[2019-08-15] MEDS ORDERED: POTASSIUM CHLORIDE 20 MEQ POWDER PACKET NG ONE (20:00)
--- NOTE | 2019-08-15 21:00 | NUR ---
NGT placement checked, 30cc of air given, and whooshing sound heard over abdomen in auscultation. However, Glucerna feeding held residual of 110cc noted, slowly pushed back. Head kept elevated. Aspiration precautions maintained. No episodes of nausea or vomiting. Lantus given as ordered. No BM yet, abdomen soft, no signs of constipation. Will have to monitor BM throughout shift.
[2019-08-15] MEDS: MIRTAZAPINE 15 MG TABLET PO SCH (21:05)
[2019-08-15] MEDS: DARUNAVIR ETHANOLATE 800 MG TABLET NG SCH (21:06)
[2019-08-15] MEDS: RITONAVIR 100 MG NG SCH (21:06)
[2019-08-15] MEDS: INSULIN GLARGINE,HUM 300 UNITS/3 ML CARTRIDGE SQ SCH (21:10)
[2019-08-15 22:10] VITALS: BP 139/86
[2019-08-16] VITALS (10 sets, daily range): BP systolic 106–157; BP diastolic 64–83
[2019-08-16] MEDS: IV 1/2NS 1000 ML 1,000 ML IV PRN
[2019-08-16] MEDS: BLOOD SUGAR DIAGNOSTIC 1 EACH STRIP VI SCH ×4 (01:55→19:00)
[2019-08-16] MEDS: INSULIN REGULAR, HUMAN 300 UNIT/3 ML VIAL SQ PRN ×2 (01:56→06:37)
--- NOTE | 2019-08-16 06:55 | NUR ---
Patient slept well throughout the night. Turned every 2-3 hours, and tolerated well. Not in any acute distress, vitals remained stable. Patient actually kept 15LPM non rebreather mask on and kept O2 saturation above 91%. No feedings due at this time, but latest residual checked and is at 60cc. No bowel movement either, will have to monitor for constipation. No further nausea or vomiting, but observed with occasional cough throughout shift, wet but unproductive. Head kept elevated. Isolation, aspiration and safety precautions in place. BS checked this AM: 156, due insulin given as ordered. 2250cc total output of urine. Proper AM care provided, sheets replaced, and perineal care provided. Will endorse accordingly.
[2019-08-16 07:19] LABS: BASOPHILS % (AUTO) 0.1 % (0.0-2.0); EOSINOPHILS # (AUTO) 0.2 K/uL (0.0-0.7); HEMATOCRIT 39.1 % (36.7-47.1); HEMOGLOBIN 12.6 g/dL (12.5-16.3); LYMPHOCYTES # (AUTO) 1.3 K/uL (20.0-40.0); LYMPHOCYTES % (AUTO) 7.2 % (20.5-51.5); MEAN CORPUSCULAR HEMOGLOBIN 29.7 uug (23.8-33.4); MEAN CORPUSCULAR HGB CONC 32 g/dL (32.5-36.3); MEAN CORPUSCULAR VOLUME 92.4 fL (73.0-96.2); MONOCYTES # (AUTO) 0.5 K/uL (2.0-10.0); MONOCYTES % (AUTO) 2.8 % (0.0-11.0); NEUTROPHILS # (AUTO) 15.6 K/uL (1.8-8.9); NEUTROPHILS % (AUTO) 88.9 % (38.5-71.5); PLATELET COUNT (AUTO) 170 K/uL (152-348); RED BLOOD CELL COUNT(AUTO) 4.23 MIL/uL (4.06-5.63); WHITE BLOOD COUNT (AUTO) 17.5 K/uL (3.6-10.2)
[2019-08-16 07:34] LABS: BILIRUBIN,TOTAL 0.7 mg/dL (0.2-1.0); MAGNESIUM 2.2 mg/dL (1.8-2.4); PHOSPHOROUS 2.8 mg/dL (2.5-4.9); POTASSIUM 3.6 mmol/L (3.5-5.1); TOTAL PROTEIN, SERUM 5.9 g/dL (6.4-8.2); VANCOMYCIN,RANDOM 17.3 ug/mL (18.0-26.0)
[2019-08-16 08:04] LABS: CREATININE 3.2 mg/dL (0.6-1.3)
[2019-08-16] MEDS: FAMOTIDINE 20 MG TABLET PO SCH (08:13)
[2019-08-16] MEDS: DOXYCYCLINE HYCLATE IV 100 MG in IV DEXTROSE 5% 100 ML IV SCH ×2 (08:13→21:22)
[2019-08-16] MEDS: HYDROCORTISONE 1% CREAM 30 GM TUBE TP SCH ×2 (08:16→21:29)
[2019-08-16] MEDS: Z GUARD REMEDY PASTE 57 GM TUBE TOP SCH ×2 (08:16→21:29)
[2019-08-16] MEDS: MUPIROCIN 2% OINT 22 GM TUBE TP SCH (08:16)
[2019-08-16] MEDS: GLUCERNA SHAKE 237 ML CAN NG SCH ×2 (09:00→13:00)
--- NOTE | 2019-08-16 10:00 | NUR ---
DOCTOR PERALTA IN THE UNIT UPDATED. PATIENT REMAINS ON NON-REBREATHER MASK WITH MINIMAL SATURATIONS 88-93%. FREQUENT ORAL CARE NEEDED. PATIENT REMAINS FULL CODE. PENDING LAB RESULTS TO BE POSTED.
[2019-08-16] MEDS: CEFEPIME HCL 2 G in IV DEXTROSE 5% 100 ML IV SCH (12:21)
--- NOTE | 2019-08-16 12:30 | NUR ---
DR. NORMAN IN THE UNIT UPDATED AND PATIENT WILL BE TRANSFERRED TO ICU FOR FURTHER MONITORING AND POSSIBLE NEED FOR INTUBATION IF FURTHER DECLINE.
--- NOTE | 2019-08-16 13:14 | NUR ---
changed feeding per dietary recommendations. started glucerna @ 10ml/hr until possible gi bleed stabilize and nausea/ vomiting. bolus feeds are not recommended.
[2019-08-16] MEDS ORDERED: GLUCERNA 1.2 1000ML LIQUID NG PRN (13:30)
--- NOTE | 2019-08-16 15:30 | NUR ---
report given to paul James and transferred patient
--- NOTE | 2019-08-16 16:00 | NUR ---
Recieved pt from 3rd floor rm 320 via bed. on 100% NRM. o2sat 94-98%. No apparent distress noted. Temp 98.8F. HR sr. IVF running at 100ml/hr via RUM. Tolerating tube feeding good. PM care rendered. Pt is forgetful and he trys to remove his mask.
[2019-08-16] MEDS: IV D5 1/2 NS 1000 ML 1,000 ML IV PRN (16:46)
--- NOTE | 2019-08-16 19:30 | NUR ---
reecived patient awake, no fever , able to follow simple command pn ngt feeding of glucerna 10ml , no residual , placement checked and auscultated , and aspirated , mid lidne right uoper arm intact and carcamo intact
[2019-08-16] MEDS: MIRTAZAPINE 15 MG TABLET PO SCH (21:22)
[2019-08-16] MEDS: DARUNAVIR ETHANOLATE 800 MG TABLET NG SCH (21:28)
[2019-08-16] MEDS: RITONAVIR 100 MG NG SCH (21:28)
[2019-08-16] MEDS: INSULIN GLARGINE,HUM 300 UNITS/3 ML CARTRIDGE SQ SCH (22:00)
--- NOTE | 2019-08-16 23:30 | NUR ---
blood sugar check every 6 hours , coverage given accordingly , intake an doutput mmonitored Addendum: 08/16/19 at 2329 by JUAN DANIEL ROLDAN RN Amended: Jose Angel added. Addendum: 08/16/19 at 2336 by JUAN DANIEL ROLDAN RN Amended: Jose Angel added. Addendum: 08/16/19 at 2337 by JUAN DANIEL ROLDAN RN Amended: Links added. Addendum: 08/16/19 at 2339 by JUAN DANIEL ROLDAN RN Amended: Links added.
--- NOTE | 2019-08-16 23:37 | NUR ---
intake and output being monitored , on gt feeding glucerna at 10 ml , no residual by ngt Addendum: 08/16/19 at 2337 by JUAN DANIEL ROLDAN RN Amended: Jose Angel added. Addendum: 08/16/19 at 2337 by JUAN DANIEL ROLDAN RN Amended: Jose Angel added. Addendum: 08/16/19 at 2339 by JUAN DANIEL ROLDAN RN Amended: Links added.
--- NOTE | 2019-08-16 23:38 | NUR ---
educated and informed of evry procedure and medication being given , needs reinforcement Addendum: 08/16/19 at 2338 by JUAN DANIEL ROLDAN RN Amended: Links added. Addendum: 08/16/19 at 2339 by JUAN DANIEL ROLDAN RN Amended: Links added.
--- NOTE | 2019-08-16 23:39 | NUR ---
keeping the are dry and clean and off loading Addendum: 08/16/19 at 0182 by JUAN DANIEL ROLDAN RN Amended: Links added.
[2019-08-17] VITALS (25 sets, daily range): BP systolic 112–151; BP diastolic 55–80
[2019-08-17] MEDS: INSULIN REGULAR, HUMAN 300 UNIT/3 ML VIAL SQ PRN ×3 (01:03→18:08)
[2019-08-17] MEDS: IV D5 1/2 NS 1000 ML 1,000 ML IV PRN (03:31)
[2019-08-17 05:28] LABS: BASOPHILS % (AUTO) 0.1 % (0.0-2.0); EOSINOPHILS # (AUTO) 0.2 K/uL (0.0-0.7); EOSINOPHILS % (AUTO) 1.3 % (0.0-7.0); HEMATOCRIT 36.1 % (36.7-47.1); HEMOGLOBIN 12.1 g/dL (12.5-16.3); LYMPHOCYTES # (AUTO) 1.1 K/uL (20.0-40.0); LYMPHOCYTES % (AUTO) 6.3 % (20.5-51.5); MEAN CORPUSCULAR HEMOGLOBIN 30.5 uug (23.8-33.4); MEAN CORPUSCULAR HGB CONC 33 g/dL (32.5-36.3); MEAN CORPUSCULAR VOLUME 91.3 fL (73.0-96.2); MONOCYTES # (AUTO) 0.5 K/uL (2.0-10.0); MONOCYTES % (AUTO) 2.6 % (0.0-11.0); NEUTROPHILS # (AUTO) 15.9 K/uL (1.8-8.9); NEUTROPHILS % (AUTO) 89.7 % (38.5-71.5); PLATELET COUNT (AUTO) 181 K/uL (152-348); RED BLOOD CELL COUNT(AUTO) 3.96 MIL/uL (4.06-5.63); WHITE BLOOD COUNT (AUTO) 17.7 K/uL (3.6-10.2)
--- NOTE | 2019-08-17 06:00 | NUR ---
no insulin coverage for 120
[2019-08-17 06:06] LABS: BILIRUBIN,TOTAL 0.7 mg/dL (0.2-1.0); CREATININE 3.1 mg/dL (0.6-1.3); PHOSPHOROUS 2.6 mg/dL (2.5-4.9); POTASSIUM 3.4 mmol/L (3.5-5.1); TOTAL PROTEIN, SERUM 5.6 g/dL (6.4-8.2)
[2019-08-17] MEDS: BLOOD SUGAR DIAGNOSTIC 1 EACH STRIP VI SCH ×4 (06:21→18:07)
--- NOTE | 2019-08-17 06:45 | NUR ---
dr hare was called for sodim level of 157 this morning ,received orders
[2019-08-17] MEDS ORDERED: IV D5W 1000ML 1,000 ML IV ONE (07:00)
--- NOTE | 2019-08-17 08:12 | NUR ---
Pulmonary services, Dr. Jarrett in the unit to see and examine patient, full report given see order hx.
[2019-08-17] MEDS: Z GUARD REMEDY PASTE 57 GM TUBE TOP SCH ×2 (09:20→20:34)
[2019-08-17] MEDS: DOXYCYCLINE HYCLATE IV 100 MG in IV DEXTROSE 5% 100 ML IV SCH ×2 (09:23→20:29)
[2019-08-17] MEDS ORDERED: FAMOTIDINE 20 MG TABLET NG SCH (09:29)
[2019-08-17] MEDS ORDERED: ACETAMINOPHEN 650 MG/20.3 ML LIQUID UDC NG PRN (09:30)
[2019-08-17] MEDS: HYDROCORTISONE 1% CREAM 30 GM TUBE TP SCH ×2 (09:31→20:36)
[2019-08-17] MEDS: FAMOTIDINE 20 MG TABLET NG SCH (09:34)
--- NOTE | 2019-08-17 10:40 | NUR ---
Attending physician Dr. Harsha Mcfadden in the unit to see and examine patient, full report given see order hx.
[2019-08-17] MEDS: CEFEPIME HCL 2 G in IV DEXTROSE 5% 100 ML IV SCH (12:11)
[2019-08-17] MEDS ORDERED: LINEZOLID IV 600 MG in PREMIXED 1 EACH IV SCH (18:00)
--- NOTE | 2019-08-17 20:00 | NUR ---
RECEIVED PT VERBALLY NONRESPONSIVE, OPEN HIS EYES TO VERBAL STIMULI. ON O2 @ 15L, 100% NRM W/ O2 SAT OF 93%. D5W @ 100CC/HR INFUSED, RESTARTED TO D51/2NS @ 100 CC/HR ON MARICARMEN MIDLINE. NGT INTACT ON R NARE, CHECKED PLACEMENT & CHECKED RESIDUAL 5CC NOTED. REPOSITIONED PT ON HIS SIDE W/ HOB ELEVATED. SPUTUM SPECIMEN SENT TO LAB.
[2019-08-17] MEDS: DARUNAVIR ETHANOLATE 800 MG TABLET NG SCH (20:03)
[2019-08-17] MEDS: MEROPENEM 500 MG in IV NORMAL SALINE 50 ML IV SCH (20:04)
--- NOTE | 2019-08-17 20:17 | NUR ---
CLINICAL PHARMACY NOTE: Restarting vancomycin on 68 y/o male COVID19 positive patient Temp 98.8 BUN 78 Scr 3.1 WBC 17.1 also on Merrem and doxycycline Give vancomycin 1gm ivpb tonight. Will dose by levels due to poor renal function. Random vancomycin leveled ordered tomorrow at 1900
[2019-08-17] MEDS: RITONAVIR 100 MG NG SCH (20:26)
[2019-08-17] MEDS: INSULIN GLARGINE,HUM 300 UNITS/3 ML CARTRIDGE SQ SCH (20:32)
[2019-08-17] MEDS ORDERED: MIRTAZAPINE 15 MG TABLET NG SCH (21:00)
[2019-08-17] MEDS ORDERED: VANCOMYCIN IV 1,000 MG in IV DEXTROSE 5% 250 ML IV ONE (22:00)
[2019-08-18] VITALS (24 sets, daily range): BP systolic 95–152; BP diastolic 55–100
--- NOTE | 2019-08-18 | NUR ---
ACCUCHECK BS-111, NO COVERAGE.
[2019-08-18] MEDS: BLOOD SUGAR DIAGNOSTIC 1 EACH STRIP VI SCH ×4 (00:03→17:10)
--- NOTE | 2019-08-18 02:00 | NUR ---
AM CARE DONE. REPOSITIONED W/ HOB ELEVATED.
[2019-08-18] MEDS: IV D5 1/2 NS 1000 ML 1,000 ML IV PRN ×2 (05:04→17:12)
[2019-08-18 05:53] LABS: BASOPHILS # (AUTO) 0.1 K/uL (0.0-8.0); BASOPHILS % (AUTO) 0.3 % (0.0-2.0); EOSINOPHILS # (AUTO) 0.3 K/uL (0.0-0.7); EOSINOPHILS % (AUTO) 1.8 % (0.0-7.0); HEMATOCRIT 34.8 % (36.7-47.1); HEMOGLOBIN 11.5 g/dL (12.5-16.3); LYMPHOCYTES # (AUTO) 1.2 K/uL (20.0-40.0); LYMPHOCYTES % (AUTO) 7.2 % (20.5-51.5); MEAN CORPUSCULAR HEMOGLOBIN 30.4 uug (23.8-33.4); MEAN CORPUSCULAR HGB CONC 33 g/dL (32.5-36.3); MEAN CORPUSCULAR VOLUME 91.7 fL (73.0-96.2); MONOCYTES # (AUTO) 0.7 K/uL (2.0-10.0); MONOCYTES % (AUTO) 4.5 % (0.0-11.0); NEUTROPHILS # (AUTO) 13.7 K/uL (1.8-8.9); NEUTROPHILS % (AUTO) 86.2 % (38.5-71.5); PLATELET COUNT (AUTO) 116 K/uL (152-348); RED BLOOD CELL COUNT(AUTO) 3.79 MIL/uL (4.06-5.63); WHITE BLOOD COUNT (AUTO) 15.9 K/uL (3.6-10.2)
[2019-08-18 05:58] LABS: MAGNESIUM 1.9 mg/dL (1.8-2.4); PHOSPHOROUS 3.2 mg/dL (2.5-4.9); POTASSIUM 3.5 mmol/L (3.5-5.1)
--- NOTE | 2019-08-18 06:00 | NUR ---
RESTING QUITELY. BP STABLE. PT. DESATURATE ON ANY INCREASE OF ACTIVITY.
[2019-08-18] MEDS: FAMOTIDINE 20 MG TABLET NG SCH (07:52)
[2019-08-18] MEDS: Z GUARD REMEDY PASTE 57 GM TUBE TOP SCH ×2 (07:52→20:19)
[2019-08-18] MEDS: MEROPENEM 500 MG in IV NORMAL SALINE 50 ML IV SCH ×2 (07:52→20:17)
[2019-08-18] MEDS: HYDROCORTISONE 1% CREAM 30 GM TUBE TP SCH ×2 (07:53→20:31)
--- NOTE | 2019-08-18 09:39 | NUR ---
CLINICAL PHARMACY NOTE: S: To restart vancomycin on 68 y/o male COVID19 positive patient per ID for clinically deteriorating O: Temp 100.5 BUN 66 Scr 3.0 WBC 15.9 Vanco random level on 08/17 with am labs: 27.5 ht 183 cm wt 65 kg Plan: Will continue to dose per Vanco random level due to elevated srcr. Patient received vancomycin 1gm ivpb last night at 2200. Since vanco random level this am is 27.5 mcg/ml, no dose shall be due today. Next random vancomycin level ordered tomorrow at 0600 for further dosing. Will follow
[2019-08-18] MEDS: DOXYCYCLINE HYCLATE IV 100 MG in IV DEXTROSE 5% 100 ML IV SCH ×2 (10:40→20:16)
--- NOTE | 2019-08-18 11:30 | NUR ---
PATIENT CONTINUES TO DESATURATE MORE OFTEN AND BECOMES MORE LABORED IN BREATHING. INFORMED DR. PERALTA INFORMED RECOMMENDED TO CHANGE TO HIGH FLOW AND REPEAT A DOSE OF DOCILIZUMAB 400MG IV. INFORMED PHARMACY REGARDING MEDICATION BECAUSE PATIENT HAS RECIEVED A DOSE IN RECENTLY.
--- NOTE | 2019-08-18 11:50 | NUR ---
Called to take pt off NRB 100% and place on High Flow.. Placed on High Flow 45 Lpm at 94% to maintain SpO2 93-94%..
--- NOTE | 2019-08-18 11:50 | NUR ---
DR MENDOZA IN THE UNIT TO EVALUATE PATIENT HAS SPOKEN TO KATHRYN ALREADY AND WILL TRY MEDICATION AND HIGHFLOW FOR NOW. NO ORDERS FOR ABG FROM DOCTORS AT THIS TIME.
--- NOTE | 2019-08-18 12:00 | NUR ---
SPOKE TO PHARMACY FE AND STATED THAT SHE NEEDS DR MCKEON TO ORDER DUE TO PRIOR TESTING AND CRITERIA PRIOR TO DOSING OR ADMINISTERATION. PENDING APPROVAL FOR MEDICATION. PATIENT CHANGED TO HIGH FLOW PER RT CANDY 45L/95% PATIENT SATURATION CONTINUES TO GO DOWN TO 87% AND CAN GO UPTO 92-93%.
[2019-08-18] MEDS: INSULIN REGULAR, HUMAN 300 UNIT/3 ML VIAL SQ PRN (12:45)
--- NOTE | 2019-08-18 13:00 | NUR ---
SPOKE TO DIETARY FOR RECOMMENDATIONS FOR FEEDING. GOAL OF 70ML/HR. INCREASE 10 MLS Q4 TOLERATED
--- NOTE | 2019-08-18 14:39 | NUR ---
PAGED DOCTOR REJI PATIENT IS DESATING ON BOTH HIGHFLOW AND NON-REBREATHER MASK 77% MAINTANINING. INFORMED THAT MEDICATION ORDERED MEDS PRIOR APPROVAL FROM ID. DELAROSA TO INTUBATE PER ANGELO BUT INFORM KATHRYN.
--- NOTE | 2019-08-18 14:45 | NUR ---
DOCTOR PERALTA CONTACTED AND INFORMED OF PATIENT DETERIORATION. PATIENT IS SATURATING IN THE 70'S MAINTAINING, TACHYPNEAC AND BECOMING MORE LABORED WITH FREQUENT COUGHING AND WORSENING WITH COUGHING.
[2019-08-18] MEDS ORDERED: ETOMIDATE 20 MG/10 ML VIAL IV ONE (15:15)
[2019-08-18] MEDS ORDERED: NOREPINEPHRINE BITARTRATE 8 MG in IV NORMAL SALINE 242 ML IV PRN (15:15)
[2019-08-18] MEDS ORDERED: SUCCINYLCHOLINE CHLORIDE 200 MG/10 ML VIAL IV ONE (15:15)
--- NOTE | 2019-08-18 15:25 | NUR ---
Pt intubated and placed on vent.. ETT 7.5, 25 cm at teeth.. Vent settings charted as ordered..
--- NOTE | 2019-08-18 15:25 | NUR ---
PATIENT INTUBATED AT THIS TIME PER DR HIGGINS FROM ER. VENT SETTING BY RT AC 16 TV 500 PEEP 5 AT 100%. ET SIZE 7.5 @ 25 AT THE TEETH. ETOMIDATE 20MG AND SUCCYNOLCHOLINE 80 GIVEN PER .
[2019-08-18] MEDS: PROPOFOL 100 ML IV PRN ×2 (16:01→20:13)
[2019-08-18 16:30] LABS: ABG BASE EXCESS -7.4 mmol/L; ABG HCO3 17.9 mmol/L; ABG PCO2 35.3 mmHg (35.0-45.0); ABG PH 7.323 (7.350-7.450); ABG PO2 56.8 mmHg (75.0-100.0); ABG SITE LEFT RADIAL; ABG TOTAL HEMOGLOBIN 10.8 G/dL (13.5-18.0); COHb 1.7 % (0.5-1.5); MetHb 0.3 % (0.0-1.5); O2Hb 84.8 % (94.0-97.0); VENT MODE VENT - A/C; VT, ABG 500 mL
--- NOTE | 2019-08-18 16:40 | NUR ---
PEEP raised to 10 as per MD order to maintain SpO2 at or >90%.. SpO2 91%
--- NOTE | 2019-08-18 17:00 | NUR ---
JUDEEN IN THE UNIT TO SEE PATIENT WILL BE STARTING THE MEDICATION ACTERMA. PATIENT DOES MEET CRITIERIA
[2019-08-18] MEDS ORDERED: diphenhydrAMINE 25 MG/10 ML UDC NG ONE (17:30)
[2019-08-18] MEDS ORDERED: diphenhydrAMINE 50 MG/1 ML VIAL IV ONE (17:30)
[2019-08-18] MEDS ORDERED: methylPREDNISolone SOD SUCC 40 MG/ML VIAL IV ONE (17:30)
[2019-08-18] MEDS ORDERED: ACETAMINOPHEN 650 MG/20.3 ML LIQUID UDC NG ONE (17:30)
[2019-08-18] MEDS ORDERED: TOCILIZUMAB 400 MG in IV NORMAL SALINE 80 ML IV ONE (18:00)
[2019-08-18] MEDS ORDERED: SUCCINYLCHOLINE CHLORIDE 200 MG/10 ML VIAL MC ONE (19:08)
[2019-08-18] MEDS ORDERED: ETOMIDATE 20 MG/10 ML VIAL MC ONE (19:08)
--- NOTE | 2019-08-18 20:00 | NUR ---
patient in bed ,doesn't follow commands orally intubated on ac 16/500 peep 10 ,100%.sedated on propofol ,continue to monitor levels of sedation .continue to monitor v/s and levels of comfort . tf in progress and Glucerna at 10 to increase q4 hours goal of 70 ,flused ngt patent and good placement ,f/c to bsd .
[2019-08-18] MEDS: RITONAVIR 100 MG NG SCH (20:16)
[2019-08-18] MEDS: DARUNAVIR ETHANOLATE 800 MG TABLET NG SCH (20:16)
[2019-08-18] MEDS: INSULIN GLARGINE,HUM 300 UNITS/3 ML CARTRIDGE SQ SCH (20:56)
--- NOTE | 2019-08-18 20:57 | NUR ---
Lantus insulin not given fingerstick done 66 repeated 74,tube feeding was just started and will continue to monitor sugar level or s/s/ of hypoglycemia.
--- NOTE | 2019-08-18 22:00 | NUR ---
turned and reposition patient offloaded back with pillows ,hob up . suction via ett and via mouth and oral care done ,observed covid19 isolation
[2019-08-18] MEDS: LINEZOLID IV 600 MG in PREMIXED 1 EACH IV SCH (22:44)
[2019-08-19] VITALS (24 sets, daily range): BP systolic 92–131; BP diastolic 45–77
[2019-08-19] MEDS: BLOOD SUGAR DIAGNOSTIC 1 EACH STRIP VI SCH ×4 (00:33→18:03)
[2019-08-19] MEDS: INSULIN REGULAR, HUMAN 300 UNIT/3 ML VIAL SQ PRN ×4 (00:35→18:04)
[2019-08-19] MEDS: PROPOFOL 100 ML IV PRN ×4 (04:17→20:52)
[2019-08-19] MEDS: IV D5 1/2 NS 1000 ML 1,000 ML IV PRN ×2 (04:41→14:17)
[2019-08-19 05:44] LABS: BASOPHILS % (AUTO) 0.1 % (0.0-2.0); EOSINOPHILS % (AUTO) 0.1 % (0.0-7.0); HEMATOCRIT 27.8 % (36.7-47.1); LYMPHOCYTES # (AUTO) 0.8 K/uL (20.0-40.0); LYMPHOCYTES % (AUTO) 5.1 % (20.5-51.5); MEAN CORPUSCULAR HGB CONC 32 g/dL (32.5-36.3); MEAN CORPUSCULAR VOLUME 92.9 fL (73.0-96.2); MONOCYTES # (AUTO) 0.3 K/uL (2.0-10.0); MONOCYTES % (AUTO) 1.8 % (0.0-11.0); NEUTROPHILS # (AUTO) 13.7 K/uL (1.8-8.9); NEUTROPHILS % (AUTO) 92.9 % (38.5-71.5); PLATELET COUNT (AUTO) 59 K/uL (152-348); RED BLOOD CELL COUNT(AUTO) 2.99 MIL/uL (4.06-5.63); WHITE BLOOD COUNT (AUTO) 14.7 K/uL (3.6-10.2)
[2019-08-19 05:55] LABS: MAGNESIUM 1.8 mg/dL (1.8-2.4); PHOSPHOROUS 6.9 mg/dL (2.5-4.9)
[2019-08-19 06:20] LABS: BILIRUBIN,TOTAL 0.6 mg/dL (0.2-1.0); CREATININE 3.5 mg/dL (0.6-1.3); POTASSIUM 4.2 mmol/L (3.5-5.1); TOTAL PROTEIN, SERUM 4.7 g/dL (6.4-8.2)
[2019-08-19 06:32] LABS: ABG BASE EXCESS -8.9 mmol/L; ABG HCO3 16.7 mmol/L; ABG PCO2 35.3 mmHg (35.0-45.0); ABG PH 7.293 (7.350-7.450); ABG PO2 138.2 mmHg (75.0-100.0); ABG SITE RIGHT BRACHIAL; ABG TOTAL HEMOGLOBIN 12.5 G/dL (13.5-18.0); MetHb 0.3 % (0.0-1.5); O2Hb 97.1 % (94.0-97.0); VENT MODE VENT - A/C; VT, ABG 500 mL
[2019-08-19] MEDS: MEROPENEM 500 MG in IV NORMAL SALINE 50 ML IV SCH ×2 (08:02→19:52)
--- NOTE | 2019-08-19 08:30 | NUR ---
Pulmonary services Dr. Jarrett in the unit. Full report given to Dr. Jarrett see order history for new orders. Dr. Jarrtet at bedside assessing patient.
[2019-08-19] MEDS: FAMOTIDINE 20 MG TABLET NG SCH (08:38)
[2019-08-19 08:39] LABS: BAND % (MANUAL) 11 % (0-10); EOSINOPHILS % (MANUAL) 1 % (0-8); LYMPHOCYTES % (MANUAL) 5 % (20-40); MYELOCYTES % 2 % (0-0); NEUTROPHILS % (MANUAL) 81 % (42-75)
[2019-08-19] MEDS: DOXYCYCLINE HYCLATE IV 100 MG in IV DEXTROSE 5% 100 ML IV SCH ×2 (08:54→20:54)
[2019-08-19] MEDS: HYDROCORTISONE 1% CREAM 30 GM TUBE TP SCH ×2 (08:55→20:26)
[2019-08-19] MEDS: Z GUARD REMEDY PASTE 57 GM TUBE TOP SCH ×2 (08:55→20:26)
[2019-08-19] MEDS: LINEZOLID IV 600 MG in PREMIXED 1 EACH IV SCH (10:17)
[2019-08-19] MEDS ORDERED: GLUCERNA 1.2 1000ML LIQUID NG PRN (10:45)
--- NOTE | 2019-08-19 11:56 | NUR ---
Nephrology services Dr. Garcia the unit. Full report given to Dr. Garcia see order history for new orders.
[2019-08-19] MEDS ORDERED: methylPREDNISolone SOD SUCC 40 MG/ML VIAL IV SCH (14:00)
--- NOTE | 2019-08-19 19:20 | NUR ---
Received patient in bed, in semi-rubin's position. patient doesn't follow commands, orally intubated on ac 16 FiO2 90%, Vt 500, peep 10. Currently sedated on propofol @45mcg, continue to monitor levels of sedation. continue to monitor v/s and levels of comfort . tf in progress and Glucerna at 50 to increase q4 hours goal of 70. F/C draining yellow urine. Running D5 1/2 NS @100mL/hr.
[2019-08-19] MEDS: RITONAVIR 100 MG NG SCH (20:07)
[2019-08-19] MEDS: DARUNAVIR ETHANOLATE 800 MG TABLET NG SCH (20:08)
[2019-08-19] MEDS: methylPREDNISolone SOD SUCC 40 MG/ML VIAL IV SCH (20:24)
[2019-08-19] MEDS: INSULIN GLARGINE,HUM 300 UNITS/3 ML CARTRIDGE SQ SCH (20:25)
--- NOTE | 2019-08-19 21:45 | NUR ---
Residual was noted to be very high, 750mL. Tube feeding turned off. Placed call to [facility] and spoke to Yaz Rick AGACNP-BC. She ordered tube feeding be held until the AM, and also ordered Reglan 10mg NG solution [id number] routine.
[2019-08-20] VITALS (24 sets, daily range): BP systolic 89–119; BP diastolic 42–66
[2019-08-20] MEDS ORDERED: METOCLOPRAMIDE HCL 10 MG/10 ML UDC NG SCH
[2019-08-20] MEDS: BLOOD SUGAR DIAGNOSTIC 1 EACH STRIP VI SCH ×4 (00:21→18:08)
[2019-08-20] MEDS: INSULIN REGULAR, HUMAN 300 UNIT/3 ML VIAL SQ PRN ×3 (00:24→11:30)
[2019-08-20] MEDS: IV D5 1/2 NS 1000 ML 1,000 ML IV PRN (01:35)
[2019-08-20] MEDS: PROPOFOL 100 ML IV PRN ×2 (05:13→13:30)
[2019-08-20] MEDS: methylPREDNISolone SOD SUCC 40 MG/ML VIAL IV SCH ×3 (05:50→20:27)
[2019-08-20 06:03] LABS: ABG BASE EXCESS -10.3 mmol/L; ABG HCO3 18.7 mmol/L; ABG PH 7.133 (7.350-7.450); ABG PO2 210.3 mmHg (75.0-100.0); ABG SITE RIGHT RADIAL; ABG TOTAL HEMOGLOBIN 10.1 G/dL (13.5-18.0); COHb 0.9 % (0.5-1.5); MetHb 0.3 % (0.0-1.5); O2Hb 97.8 % (94.0-97.0); VENT MODE VENT - A/C; VT, ABG 500 mL
[2019-08-20 06:15] LABS: BASOPHILS % (AUTO) 0.1 % (0.0-2.0); HEMATOCRIT 28.7 % (36.7-47.1); HEMOGLOBIN 9.5 g/dL (12.5-16.3); LYMPHOCYTES # (AUTO) 1.1 K/uL (20.0-40.0); LYMPHOCYTES % (AUTO) 5.2 % (20.5-51.5); MEAN CORPUSCULAR HEMOGLOBIN 30.3 uug (23.8-33.4); MEAN CORPUSCULAR HGB CONC 33 g/dL (32.5-36.3); MEAN CORPUSCULAR VOLUME 91.6 fL (73.0-96.2); MONOCYTES # (AUTO) 1.2 K/uL (2.0-10.0); MONOCYTES % (AUTO) 5.5 % (0.0-11.0); NEUTROPHILS # (AUTO) 19.2 K/uL (1.8-8.9); NEUTROPHILS % (AUTO) 89.2 % (38.5-71.5); PLATELET COUNT (AUTO) 93 K/uL (152-348); RED BLOOD CELL COUNT(AUTO) 3.13 MIL/uL (4.06-5.63); WHITE BLOOD COUNT (AUTO) 21.5 K/uL (3.6-10.2)
--- NOTE | 2019-08-20 06:30 | NUR ---
increased RR to 24 post ABG per
[2019-08-20 06:57] LABS: CREATININE 4.6 mg/dL (0.6-1.3); MAGNESIUM 2.1 mg/dL (1.8-2.4); POTASSIUM 4.2 mmol/L (3.5-5.1)
[2019-08-20 07:08] LABS: PHOSPHOROUS 10.5 mg/dL (2.5-4.9)
--- NOTE | 2019-08-20 07:10 | NUR ---
Received critical lab from [facility] for Phos: 10.5, BUN: 93, Creat: of 4.62.
[2019-08-20 07:21] LABS: FERRITIN 2108 ng/mL (26-388); LACTATE DEHYDROGENASE 1191 U/L (85-227)
[2019-08-20] MEDS: IV NS 1000 ML 1,000 ML IV PRN (08:47)
[2019-08-20] MEDS: MEROPENEM 500 MG in IV NORMAL SALINE 50 ML IV SCH ×2 (08:47→20:11)
[2019-08-20] MEDS: FAMOTIDINE 20 MG TABLET NG SCH (08:48)
--- NOTE | 2019-08-20 09:00 | NUR ---
Pulmonary services Dr. Jarrett in the unit, full report given to Dr. Jarrett. See order history for new orders. Dr. Jarrett at bedside assessing patient.
[2019-08-20] MEDS: DOXYCYCLINE HYCLATE IV 100 MG in IV DEXTROSE 5% 100 ML IV SCH ×2 (09:23→20:30)
[2019-08-20] MEDS: Z GUARD REMEDY PASTE 57 GM TUBE TOP SCH ×2 (09:23→20:30)
[2019-08-20] MEDS: HYDROCORTISONE 1% CREAM 30 GM TUBE TP SCH ×2 (09:23→20:57)
[2019-08-20] MEDS: SEVELAMER CARBONATE 800 MG POWD.PACK GT SCH ×2 (11:49→17:31)
[2019-08-20] MEDS: METOCLOPRAMIDE HCL 10 MG/10 ML UDC NG SCH ×2 (11:49→17:31)
--- NOTE | 2019-08-20 12:00 | NUR ---
Hospitalist Dr. Mcleod in the unit, full report given to Dr. Mcleod. See order history for new orders. Dr. Mcleod informed pt brother and brother decided on dialysis but changed patient code status to DNR.
[2019-08-20] MEDS: RITONAVIR 100 MG NG SCH (20:11)
[2019-08-20] MEDS: DARUNAVIR ETHANOLATE 800 MG TABLET NG SCH (20:12)
[2019-08-20] MEDS: INSULIN GLARGINE,HUM 300 UNITS/3 ML CARTRIDGE SQ SCH (20:56)
--- NOTE | 2019-08-20 21:00 | NUR ---
Held Gomezus: Last 2 BS 80 & 96; & not tolerating feeding.
[2019-08-21] VITALS (68 sets, daily range): BP systolic 61–149; BP diastolic 32–70
[2019-08-21] MEDS: BLOOD SUGAR DIAGNOSTIC 1 EACH STRIP VI SCH ×4 (00:01→18:25)
[2019-08-21] MEDS: INSULIN REGULAR, HUMAN 300 UNIT/3 ML VIAL SQ PRN ×3 (00:01→12:19)
[2019-08-21] MEDS: IV NS 1000 ML 1,000 ML IV PRN ×2 (00:08→15:55)
[2019-08-21] MEDS: PROPOFOL 100 ML IV PRN ×3 (00:09→18:01)
[2019-08-21] MEDS: METOCLOPRAMIDE HCL 10 MG/10 ML UDC NG SCH ×4 (00:09→18:01)
[2019-08-21] MEDS: NOREPINEPHRINE BITARTRATE 8 MG in IV NORMAL SALINE 242 ML IV PRN ×4 (00:45→20:31)
[2019-08-21] MEDS ORDERED: NOREPINEPHRINE BITARTRATE 4 MG/4 ML VIAL IV ONE (00:48)
--- NOTE | 2019-08-21 02:00 | NUR ---
Notified Dr Nunez: Started levophed & monitor rhythm change.
[2019-08-21 05:54] LABS: BASOPHILS # (AUTO) 0.1 K/uL (0.0-8.0); HEMATOCRIT 28.1 % (36.7-47.1); LYMPHOCYTES # (AUTO) 1.2 K/uL (20.0-40.0); LYMPHOCYTES % (AUTO) 3.6 % (20.5-51.5); MEAN CORPUSCULAR VOLUME 93.1 fL (73.0-96.2); NEUTROPHILS # (AUTO) 29.9 K/uL (1.8-8.9)
[2019-08-21 05:56] LABS: BASOPHILS % (AUTO) 0.3 % (0.0-2.0); EOSINOPHILS % (AUTO) 0.1 % (0.0-7.0); HEMOGLOBIN 9.1 g/dL (12.5-16.3); MEAN CORPUSCULAR HGB CONC 32 g/dL (32.5-36.3); MONOCYTES # (AUTO) 1.8 K/uL (2.0-10.0); MONOCYTES % (AUTO) 5.4 % (0.0-11.0); NEUTROPHILS % (AUTO) 90.6 % (38.5-71.5); PLATELET COUNT (AUTO) 104 K/uL (152-348); RED BLOOD CELL COUNT(AUTO) 3.02 MIL/uL (4.06-5.63)
[2019-08-21 06:15] LABS: CREATININE 6.5 mg/dL (0.6-1.3); MAGNESIUM 1.9 mg/dL (1.8-2.4); POTASSIUM 5.2 mmol/L (3.5-5.1)
[2019-08-21 06:28] LABS: ABG BASE EXCESS -20.5 mmol/L; ABG HCO3 12.1 mmol/L; ABG PCO2 65.2 mmHg (35.0-45.0); ABG PH 6.887 (7.350-7.450); ABG PO2 301.1 mmHg (75.0-100.0); ABG SITE LEFT RADIAL; ABG TOTAL HEMOGLOBIN 9.7 G/dL (13.5-18.0); COHb 0.7 % (0.5-1.5); MetHb 0.3 % (0.0-1.5); O2Hb 98.2 % (94.0-97.0); VENT MODE VENT - A/C; VT, ABG 500 mL
[2019-08-21] MEDS: methylPREDNISolone SOD SUCC 40 MG/ML VIAL IV SCH ×3 (06:58→21:19)
[2019-08-21] MEDS: SEVELAMER CARBONATE 800 MG POWD.PACK GT SCH ×3 (06:59→18:01)
[2019-08-21 08:00] LABS: BAND % (MANUAL) 10 % (0-10); LYMPHOCYTES % (MANUAL) 5 % (20-40); MONOCYTES % (MANUAL) 5 % (2-10); NEUTROPHILS % (MANUAL) 80 % (42-75)
[2019-08-21] MEDS: MEROPENEM 500 MG in IV NORMAL SALINE 50 ML IV SCH ×2 (08:28→20:00)
[2019-08-21] MEDS: HYDROCORTISONE 1% CREAM 30 GM TUBE TP SCH ×2 (08:29→21:17)
[2019-08-21] MEDS: Z GUARD REMEDY PASTE 57 GM TUBE TOP SCH ×2 (08:29→21:17)
[2019-08-21] MEDS: FAMOTIDINE 20 MG TABLET NG SCH (08:29)
[2019-08-21] MEDS: DOXYCYCLINE HYCLATE IV 100 MG in IV DEXTROSE 5% 100 ML IV SCH ×2 (09:17→21:13)
--- NOTE | 2019-08-21 12:42 | NUR ---
pATIENTS BS 60 GAVE ORANGE RAHAT, KARMA BS 110 12:00 Addendum: 08/21/19 at 1307 by ERIKA DERAS RN DISREGARD NOTE ABOUT BS, WRONG PT.
--- NOTE | 2019-08-21 13:07 | NUR ---
DR. JAGDISH PINZON AT [id number] DIALYSIS CATHETER INSERTION, PT TOLERATED WELL.
--- NOTE | 2019-08-21 14:01 | NUR ---
railroad police officer AT BEDSIDE, STARTING TREATMENT
--- NOTE | 2019-08-21 16:08 | NUR ---
DIALYSIS DONE 500ML OUTPUT.
--- NOTE | 2019-08-21 19:20 | NUR ---
Received patient in bes in right lateral semi-fowlers position. Patient is sedated and on the vent with a size 7.5 ET tube marked @25cm. vent settings: AC 24, Fio2 70%, volume 500, PEEP 10. NG-tube present in the right nare. MARICARMEN PICC 3-lumen, 20 gauge peripheral IV right hand. Marte catheter in place draining scant cloudy alejandro urine. Patient had a hemodialysis permacath inserted into the right femoral. Last hemodialysis done in the AM with 500ml output. Patient on levophed for BP support currently @0.70mcg/kg/min. Propofol running @30mcg/kg/min. 0.9% NS running @75mL/hr. Vital signs stable.
[2019-08-21 20:58] LABS: BILIRUBIN,DIRECT 0.4 mg/dL (0.0-0.2); BILIRUBIN,TOTAL 0.9 mg/dL (0.2-1.0)
[2019-08-21] MEDS: INSULIN GLARGINE,HUM 300 UNITS/3 ML CARTRIDGE SQ SCH (21:18)
[2019-08-21 23:26] LABS: *BLOOD, URINE 3+ (NEGATIVE); *CLARITY,URINE CLOUDY (CLEAR); *COLOR,URINE AMBER (YELLOW); *KETONES,URINE NEGATIVE (NEGATIVE); *UROBILINOGEN,URINE 0.2 E.U./dl (NORMAL); LEUKOCYTE ESTERASE ,URINE 1+ (NEGATIVE); NITRITE, URINE NEGATIVE (NEGATIVE); UGLUCOSE NEGATIVE (NEGATIVE)
[2019-08-21 23:31] LABS: *BILIRUBIN,URIN 1+ (NEGATIVE)
[2019-08-21 23:35] LABS: BACTERIA,URINE MANY /HPF (NONE SEEN); RBC,URINE 80-100 /HPF (0-3)
[2019-08-21 23:36] LABS: SQUAMOUS EPITHELIAL CELL,UR FEW /HPF (NONE SEEN); WBC,URINE 20-50 /HPF (0-3); YEAST,URINE BUDDING YEAST /HPF (NONE SEEN)
[2019-08-22] VITALS (22 sets, daily range): BP systolic 84–118; BP diastolic 37–53
[2019-08-22] MEDS: METOCLOPRAMIDE HCL 10 MG/10 ML UDC NG SCH ×2 (00:20→06:00)
[2019-08-22] MEDS: BLOOD SUGAR DIAGNOSTIC 1 EACH STRIP VI SCH ×2 (00:43→06:00)
[2019-08-22] MEDS: NOREPINEPHRINE BITARTRATE 8 MG in IV NORMAL SALINE 242 ML IV PRN (02:22)
--- NOTE | 2019-08-22 05:40 | NUR ---
Pupils fixed and dilated. Patient apneic for 5 minutes. No audible heart tones and breath sounds. No palpable pulses and corneal reflexes. Pronounced at 0539.
[2019-08-22 05:47] LABS: BASOPHILS # (AUTO) 0.1 K/uL (0.0-8.0); BASOPHILS % (AUTO) 0.2 % (0.0-2.0); HEMATOCRIT 23.8 % (36.7-47.1); HEMOGLOBIN 7.7 g/dL (12.5-16.3); LYMPHOCYTES # (AUTO) 0.7 K/uL (20.0-40.0); MEAN CORPUSCULAR HGB CONC 33 g/dL (32.5-36.3); MEAN CORPUSCULAR VOLUME 92.2 fL (73.0-96.2); MONOCYTES # (AUTO) 1.7 K/uL (2.0-10.0); MONOCYTES % (AUTO) 5.2 % (0.0-11.0); NEUTROPHILS # (AUTO) 30.5 K/uL (1.8-8.9); NEUTROPHILS % (AUTO) 92.6 % (38.5-71.5); PLATELET COUNT (AUTO) 66 K/uL (152-348); RED BLOOD CELL COUNT(AUTO) 2.58 MIL/uL (4.06-5.63)
[2019-08-22 06:00] LABS: CREATININE 5.4 mg/dL (0.6-1.3); POTASSIUM 5.3 mmol/L (3.5-5.1)
[2019-08-22] MEDS: SEVELAMER CARBONATE 800 MG POWD.PACK GT SCH (06:00)
[2019-08-22] MEDS: methylPREDNISolone SOD SUCC 40 MG/ML VIAL IV SCH (06:00)
[2019-08-22 06:08] LABS: WHITE BLOOD COUNT (AUTO) 32.9 K/uL (3.6-10.2)
--- NOTE | 2019-08-22 06:30 | NUR ---
@0445 I went into the patient's room to render AM care. Patient tolerated a bed bath and linen change without distress. Vital signs @0500 BP 108/45, HR 92, oxygen saturation 98%, resp 27. I completed my care and left the room @0515. The patient's blood pressure recycled at this time and he became hypotensive @ 85/44, for which I titrated levophed up by 0.1mcg/kg/min as per the order. As I was removing my PPE, he suddenly went jeanne with a heart rate of 56 and dropping very quickly. The monitor was soon reading a heart rate of 46 then in the mid 30s and began interpreting asystole. The patient relaxed and ceased respirations against the ventilator. The patient has a Do Not Resuscitate order and therefore no rescue measures were taken. I called the brother Jigar Leary and informed him of his brother's imminent passing. Condolences were expressed. The brother informed me that mortuary arrangements had not been made yet. I informed the other RN Vivienne on duty and she pronounced the patient @0539. [employer] was informed of patient expiration @0541. Administration was informed of patient expiration @0544. Dr. Kevin Nunez paged @[phone]. Crystal called @0555. Case #[id number] Dr. Kevin Nunez called back @0622 and was notified of the patient's expiration.
[2019-08-22 06:49] LABS: BAND % (MANUAL) 9 % (0-10); LYMPHOCYTES % (MANUAL) 3 % (20-40); METAMYELOCYTES % 2 % (0-1); MONOCYTES % (MANUAL) 5 % (2-10); NEUTROPHILS % (MANUAL) 81 % (42-75)
[2019-08-23 04:08] LABS: HEPATITIS B SURFACE AB Non Reactive (.); HEPATITIS B SURFACE AG Negative (Negative)
== END 2019-08-22 05:39 | disposition expired | DRG 871 ==
LOC: ER 12:50 → CCU 15:53 → TELE3 08-10 16:18 → CCU 08-16 16:04
PROVIDERS: ADMIT Internal Medicine
PROC: 05H533Z Insertion of Infusion Device into Right Subclavian Vein, Percutaneous Approach (ICD-10-PCS; 2019-08-08)
PROC: 5A1945Z Respiratory Ventilation, 24-96 Consecutive Hours (ICD-10-PCS; principal; 2019-08-18)
PROC: 0BH18EZ Insertion of Endotracheal Airway into Trachea, Via Natural or Artificial Opening Endoscopic (ICD-10-PCS; 2019-08-18)
PROC: 02HV33Z Insertion of Infusion Device into Superior Vena Cava, Percutaneous Approach (ICD-10-PCS; 2019-08-19)
PROC: B548ZZA Ultrasonography of Superior Vena Cava, Guidance (ICD-10-PCS; 2019-08-19)
PROC: 06HY33Z Insertion of Infusion Device into Lower Vein, Percutaneous Approach (ICD-10-PCS; 2019-08-21)
PROC: 5A1D70Z Performance of Urinary Filtration, Intermittent, Less than 6 Hours Per Day (ICD-10-PCS; 2019-08-21)
DX: A41.89 Other specified sepsis (principal); U07.1 COVID-19; J12.89 Other viral pneumonia; E11.10 Type 2 diabetes mellitus with ketoacidosis without coma; N17.0 Acute kidney failure with tubular necrosis; G92 Toxic encephalopathy; J96.01 Acute respiratory failure with hypoxia; J96.02 Acute respiratory failure with hypercapnia; E43 Unspecified severe protein-calorie malnutrition; D68.69 Other thrombophilia; E87.0 Hyperosmolality and hypernatremia; N18.4 Chronic kidney disease, stage 4 (severe); Z68.1 Body mass index [BMI] 19.9 or less, adult; Z79.4 Long term (current) use of insulin; E11.22 Type 2 diabetes mellitus with diabetic chronic kidney disease; I12.9 Hypertensive chronic kidney disease with stage 1 through stage 4 chronic kidney disease, or unspecified chronic kidney disease; R94.31 Abnormal electrocardiogram [ECG] [EKG]; D69.6 Thrombocytopenia, unspecified; E87.5 Hyperkalemia; E83.39 Other disorders of phosphorus metabolism; F01.50 Vascular dementia, unspecified severity, without behavioral disturbance, psychotic disturbance, mood disturbance, and anxiety; F32.9 Major depressive disorder, single episode, unspecified; I13.10 Hypertensive heart and chronic kidney disease without heart failure, with stage 1 through stage 4 chronic kidney disease, or unspecified chronic kidney disease; M19.90 Unspecified osteoarthritis, unspecified site; K21.9 Gastro-esophageal reflux disease without esophagitis; N40.0 Benign prostatic hyperplasia without lower urinary tract symptoms; Z86.73 Personal history of transient ischemic attack (TIA), and cerebral infarction without residual deficits; Z66 Do not resuscitate; D64.9 Anemia, unspecified; I70.0 Atherosclerosis of aorta; R29.6 Repeated falls; G89.29 Other chronic pain; Z22.322 Carrier or suspected carrier of Methicillin resistant Staphylococcus aureus; Z87.440 Personal history of urinary (tract) infections; R13.10 Dysphagia, unspecified; D89.9 Disorder involving the immune mechanism, unspecified; D63.8 Anemia in other chronic diseases classified elsewhere; J84.10 Pulmonary fibrosis, unspecified; R40.2413 Glasgow coma scale score 13-15, at hospital admission
CPT/HCPCS: 36415; 36600; 70030-TC; 71045; 83605; 83615; 83735; 84100; 84478; 85025; 86140; 86706; 86803; 87040; 87070; 87086; 87340; 87400; 87806; 90937; 93005; 94002; 94003; 94640; A4663; G0378; J0330; J0456; J0692; J0696; J1200; J1644; J1815; J2020; J2185; J2405; J2920; J3262; J3370; J3480; J3490; J7030; J7050; J7060; J7070; J8597; Q0163